=== PATIENT | female | born 2000 | race Caucasian/White ===

== ENCOUNTER 2023-03-24 12:52 | Emergency (ER) | payer OTHER, SELFPAY ==
[2023-03-24 12:58] VITALS: BP 181/92; PULSE 82; RESP 18; TEMP 36.8; O2SAT 99; BMI 48.2
--- NOTE | 2023-03-24 13:09 | CT_ITS ---
[address] [address] Patient Name: ELIUD NUNEZ MRN: [id number] date: 2000 Sex: F Assigned Patient Location: ER Current Patient Location: ER Accession/Order Number: [id number] Exam Date: 03/24/2023 13:50 Report Date: 03/24/2023 14:44 At the request of: CORKY NOLASCO Procedure: CT abdomen pelvis w con CT ABDOMEN AND PELVIS WITH CONTRAST: INDICATION: Left lower quadrant abdominal pain. COMPARISON: None. TECHNIQUE: Helical CT images of the abdomen and pelvis were obtained after the administration of intravenous contrast. Dose reduction techniques were achieved by using automated exposure control and/or adjustment of mA and/or kV according to patient size and/or use of iterative reconstruction technique. FINDINGS: LOWER CHEST: The visualized lung bases are clear. LIVER: There is hepatomegaly and severe diffuse hepatic steatosis. GALLBLADDER AND BILIARY SYSTEM: Unremarkable. SPLEEN: Unremarkable. PANCREAS: Unremarkable. ADRENAL GLANDS: Unremarkable. KIDNEYS AND URETERS: The kidneys enhance and excrete symmetrically without focal lesions or hydronephrosis. Evaluation for renal calculi is limited due to contrast in the renal collecting systems. BLADDER: Unremarkable. GASTROINTESTINAL TRACT: Mild wall thickening of the transverse and descending colon which may be secondary to underdistention or mild colitis. No evidence of bowel obstruction. Normal appendix. VASCULATURE: Unremarkable. RETROPERITONEUM AND LYMPH NODES: No lymphadenopathy or mass. PERITONEUM/MESENTERY: No abdominal ascites. No free air. PELVIS: There is an intrauterine device noted within the endometrial canal, an expected location. BODY WALL: Small fat-containing umbilical hernia. BONES: No acute abnormality. CT/CT abdomen pelvis w con IMPRESSION: 1. Mild wall thickening of the transverse and descending colon which may be secondary to underdistention or mild colitis. 2. Hepatomegaly and diffuse hepatic steatosis. 3. Small fat-containing umbilical hernia. Electronically authenticated by: KATHI MARTINO Date: 03/24/2023 14:44
--- NOTE | 2023-03-24 13:09 | PC.NURSE ---
LEFT LOWER ABDOMINAL PAIN. DENIES ANY OTHER SYMPTOMS. WORRIED ABOUT MIGRATING IUD THAT WAS PLACED IN NOVEMBER
--- NOTE | 2023-03-24 13:10 | ED_ITS ---
HPI - Abdominal Pain General Chief Complaint: Abdominal Pain Time Seen by Provider: 03/24/23 13:02 Source: patient Mode of arrival: walk-in Limitations: no limitations History of Present Illness HPI narrative: Pt is a 22-year-old female presents to the Emergency Room with concerns of left lower quadrant abdominal pain. Patient left work when symptoms started. Notes symptoms began around 10 AM, sharp aching the left lower quadrant somewhat colicky but never gone away. She denies any blood in her urine. She recently had an IUD placed. PCO as in November. She denies any fevers or chills. Nausea only present with increased pain. Patient denies any history of Crohn's, colitis or diverticulitis. She denies any abdominal trauma. She did take Pepcid prior to arrival without relief. Stools have been regular and unremarkable. this does not feel like my ovarian cyst with PCOS) Related Data Patient : No Home Medications Medication Instructions Recorded Confirmed hydrochlorothiazide 25 mg tablet 25 mg PO DAILY 03/24/23 03/24/23 Previous Rx's Medication Instructions Recorded ciprofloxacin HCl 500 mg tablet 500 mg PO BID 10 days #20 tabs 03/24/23 (Cipro) dicyclomine 20 mg tablet 20 mg PO TID PRN abdominal pain 03/24/23 #14 tabs metronidazole 500 mg tablet 500 mg PO Q8H 10 days #30 tabs 03/24/23 ondansetron HCl 4 mg tablet 4 mg PO Q6H PRN nausea and 03/24/23 vomiting #12 tabs Allergies Allergy/AdvReac Type Severity Reaction Status Date / Time No Known Drug Allergies Allergy Verified 03/24/23 12:58 Review of Systems ROS Constitutional Denies: fever or chills Ears, nose, mouth, and throat Denies: throat pain or neck pain Cardiovascular Denies: chest pain or palpitations Respiratory Denies: shortness of breath, cough or chest congestion Gastrointestinal Reports: abdominal pain and nausea; Denies: vomiting, coffee grounds in vomit or diarrhea Genitourinary Reports: urinary frequency (on HCTZ for BP); Denies: painful urination or urinary urgency Musculoskeletal Denies: back pain or neck pain Integumentary/Breast Denies: rash or itching Neurological Denies: headache Psychiatric Denies: anxiety Endocrine Denies: excessive urination PFSH PFSH Social History Smoking status: Never smoker Exam Narrative Exam Narrative: Nurses notes and vital signs reviewed and patient is not hypoxic. General: The patient appears well and in no apparent distress. Patient is resting comfortably on cart. Skin: Warm, dry, no pallor noted.no evidence of rash Head: Normocephalic, atraumatic Neck: Supple, trachea mid-line, no tenderness, no lymphadenopathy Eye: Pupils are equal, round and reactive to light, EOMI Ears, Nose, Mouth, and Throat: TM are clear, normal light reflex, oral mucosa is moist, no posterior oropharynx erythema or hypertrophy, uvula is mid-line Cardiovascular: Regular Rate and Rhythm Respiratory: Patient is in no distress, no accessory muscle use, lungs are clear to auscultation, no wheezing, rales or rhonchi. Chest Wall: no tenderness Back: non-tender, no CVA tenderness Musculoskeletal: normal ROM, no tenderness, no swelling GI: Normal bowel sounds,obese abdomen with tenderness to palpation LLQ, no rebound, slight guarding with repetitive patient., no masses appreciated. no rigidity noted, no suprapubic pain, minimal soreness at McBurney's point Neurological: A&O x4 Psychiatric: Cooperative Constitutional Vital Signs, click to edit/add: Last Vital Signs Temp 98.2 F 03/24/23 12:58 Pulse 82 03/24/23 12:58 Resp 18 03/24/23 12:58 BP 181/92 H 03/24/23 12:58 Pulse Ox 99 03/24/23 12:58 Course Vital Signs Vital signs: Vital Signs Temperature 98.2 F 03/24/23 12:58 Pulse Rate 82 03/24/23 12:58 Respiratory Rate 18 03/24/23 12:58 Blood Pressure 181/92 H 03/24/23 12:58 Pulse Oximetry 99 03/24/23 12:58 Temperature 98.2 F 03/24/23 12:58 Pulse Rate 82 03/24/23 12:58 Respiratory Rate 18 03/24/23 12:58 Blood Pressure 181/92 H 03/24/23 12:58 Pulse Oximetry 99 03/24/23 12:58 MDM - Abdominal Pain MDM Narrative Medical decision making narrative: acute onset left lower quadrant abdominal tenderness, given physiccal exam we recommend CT scan to rule out diverticulitis. The stone appears less likely she has no prior history. We discussed pain medications with Toradol and Zofran for nausea. We'll reassess. I expect her blood pressure did improve as patient is acutely anxious and nevver experiencing this pain before. patient reevaluated after returning from CT scanner at 2:20 PM. Patient notes her pain is much improved. Resting comfortably on her cell phone. Awaiting radiologist's interpretation and urinalysis. CT report reviewed, IUD in proper location, medical exam and concern for colitis in the transverse and descending colon noted on CT scan will treat with antibiotics with risks and benefits discussed, avoid alcohol The patient is to followup with primary care physician in next 2-3 days or to return to the emergency department should any of the signs or symptoms worsen or new symptoms develop. Patient had questions answered. The patient agrees with th eric following Diagnosis and Treatment plan and the patient will be discharged home. Lab Data Attestation: I reviewed the patient's lab results. Lab results narrative: urine culture with pending Labs: Lab Results 03/24/23 03/24/23 Range/Units 13:05 13:30 WBC 9.9 (4.0-11.0) 10^3/uL RBC 5.04 (4.20-5.40) 10^6/uL Hgb 12.8 (12.0-16.0) g/dL Hct 39.7 (36.0-48.0) % MCV 78.8 L (81.0-99.0) fL MCH 25.4 L (26.7-34.0) pg MCHC 32.2 (29.9-35.2) g/dL RDW 13.3 (11.0-15.0) % Plt Count 401 (150-450) 10^3/uL MPV 9.8 (9.5-13.5) fL Neut % (Auto) 68.4 (43.0-75.0) % Lymph % (Auto) 21.9 (20.5-60.0) % [place] % (Auto) 6.6 (1.7-12.0) % Eos % (Auto) 1.9 (0.9-7.0) % Baso % (Auto) 0.6 (0.2-2.0) % Neut # (Auto) 6.7 H (1.4-6.5) 10^3/uL Lymph # (Auto) 2.2 (1.2-3.8) 10^3/uL [place] # (Auto) 0.7 (0.3-0.8) 10^3/uL Eos # (Auto) 0.2 (0.0-0.7) 10^3/uL Baso # (Auto) 0.1 (0.0-0.1) 10^3/uL Abs Immat Gran (auto) 0.06 H (0.00-0.03) 10^3/uL Imm/Tot Granulo (auto) 0.6 H (0.0-0.5) % Sodium 139 (136-145) mmol/L Potassium 3.8 (3.5-5.1) mmol/L Chloride 104 (98-107) mmol/L Carbon Dioxide 25.9 (21.0-32.0) mmol/L Anion Gap 12.9 BUN 11.0 (7.0-18.0) mg/dL Creatinine 0.81 (0.55-1.02) mg/dL Est GFR ( Amer) >60 (>=60) Est GFR (Non-Af Amer) >60 (>=60) BUN/Creatinine Ratio 13.6 Glucose 94 (74-106) mg/dL Lactate 1.3 (0.4-2.0) mmol/L Calcium 9.0 (8.5-10.1) mg/dL Total Bilirubin 0.3 (0.2-1.0) mg/dL AST 27 (15-37) U/L ALT 60 H (14-59) U/L Alkaline Phosphatase 111 (46-116) U/L Total Protein 7.5 (6.4-8.2) g/dL Albumin 3.5 (3.4-5.0) g/dL Globulin 4.0 g/dL Albumin/Globulin Ratio 0.9 Lipase 82.0 (73.0-393.0) U/L Urine Color Yellow (YELLOW) Urine Clarity Clear (CLEAR) Urine pH 5.5 (5.0-9.0) Ur Specific [place] 1.015 (1.005-1.025) Urine Protein Negative (NEG/TRACE) mg/dL Urine Glucose (UA) Negative (NEGATIVE) mg/dL Urine Ketones Negative (NEGATIVE) mg/dL Urine Occult Blood Trace-i (NEGATIVE) Urine Nitrite Negative (NEGATIVE) Urine Bilirubin Negative (NEGATIVE) Urine Urobilinogen 0.2 (0.2-1.0) EU/dL Ur Leukocyte Esterase Negative (NEGATIVE) Urine RBC 2-5 A (0-2) #/HPF Urine WBC 2-5 A (NONE SEEN) #/HPF Ur Squamous Epith Cells Few A (NONE/RARE) #/LPF Urine Crystals None seen (None Seen) #/HPF Urine Bacteria Small A (NONE SEEN) #/HPF Urine Casts None seen (NONE SEEN) #/LPF Urine Mucus Trace A (NONE SEEN) Ur Culture Indicated? Yes Imaging Data CT scan - abdomen: Radiologist's impression: Procedure: CT abdomen pelvis w con CT ABDOMEN AND PELVIS WITH CONTRAST: INDICATION: Left lower quadrant abdominal pain. COMPARISON: None. TECHNIQUE: Helical CT images of the abdomen and pelvis were obtained after the administration of intravenous contrast. Dose reduction techniques were achieved by using automated exposure control and/or adjustment of mA and/or kV according to patient size and/or use of iterative reconstruction technique. FINDINGS: LOWER CHEST: The visualized lung bases are clear. LIVER: There is hepatomegaly and severe diffuse hepatic steatosis. GALLBLADDER AND BILIARY SYSTEM: Unremarkable. SPLEEN: Unremarkable. PANCREAS: Unremarkable. ADRENAL GLANDS: Unremarkable. KIDNEYS AND URETERS: The kidneys enhance and excrete symmetrically without focal lesions or hydronephrosis. Evaluation for renal calculi is limited due to contrast in the renal collecting systems. BLADDER: Unremarkable. GASTROINTESTINAL TRACT: Mild wall thickening of the transverse and descending colon which may be secondary to underdistention or mild colitis. No evidence of bowel obstruction. Normal appendix. VASCULATURE: Unremarkable. RETROPERITONEUM AND LYMPH NODES: No lymphadenopathy or mass. PERITONEUM/MESENTERY: No abdominal ascites. No free air. PELVIS: There is an intrauterine device noted within the endometrial canal, an expected location. BODY WALL: Small fat-containing umbilical hernia. BONES: No acute abnormality. IMPRESSION: 1. Mild wall thickening of the transverse and descending colon which may be secondary to underdistention or mild colitis. 2. Hepatomegaly and diffuse hepatic steatosis. 3. Small fat-containing umbilical hernia. Electronically authenticated by: KATHI MARTINO Date: 03/24/2023 14:44 Discharge Plan Discharge Chief Complaint: Abdominal Pain Clinical Impression: Colitis, Abdominal pain Patient Disposition: Home, Self-Care Time of Disposition Decision: 14:52 Condition: Good Mode of Transportation: Private Vehicle Prescriptions / Home Meds: New ondansetron HCl 4 mg tablet 4 mg PO Q6H PRN (Reason: nausea and vomiting) Qty: 12 0RF dicyclomine 20 mg tablet 20 mg PO TID PRN (Reason: abdominal pain) Qty: 14 0RF ciprofloxacin HCl [Cipro] 500 mg tablet 500 mg PO BID 10 Days Qty: 20 0RF metronidazole 500 mg tablet 500 mg PO Q8H 10 Days Qty: 30 0RF No Action hydrochlorothiazide 25 mg tablet 25 mg PO DAILY Instructions: Abdominal Pain (ED), Colitis (ED) Additional Instructions: May take motrin for pain as needed, No alcohol use with antibiotics. Follow up to pcp for recheck and return to ER if symptoms worsen. Stand Alone Forms: Portal Instructions Referrals: ANNA JIMENEZ [Primary Care Provider] - As soon as possible Discharge Date/Time: 03/24/23 15:01
[2023-03-24] MEDS: KETOROLAC TROMETHAMINE 30 MG/ML VIAL IVP (13:27)
[2023-03-24] MEDS: 0.9 % SODIUM CHLORIDE 1,000 ML 999 ML IV (13:27)
[2023-03-24] MEDS: ONDANSETRON PF 4 MG/2 ML VIAL IV (13:27)
[2023-03-24 13:55] LABS: Basophils Absolute Auto 0.1 10^3/uL (0.0-0.1); Basophils Percent Auto 0.6 % (0.2-2.0); Eosinophils Absolute Auto 0.2 10^3/uL (0.0-0.7); Eosinophils Percent Auto 1.9 % (0.9-7.0); Hematocrit 39.7 % (36.0-48.0); Hemoglobin 12.8 g/dL (12.0-16.0); Immature Granulocytes Abs Auto 0.06 10^3/uL (0.00-0.03); Immature Granulocytes Pct Auto 0.6 % (0.0-0.5); Lymphocytes Absolute Auto 2.2 10^3/uL (1.2-3.8); Lymphocytes Percent Auto 21.9 % (20.5-60.0); Mean Corpuscular HGB Conc 32.2 g/dL (29.9-35.2); Mean Corpuscular Hemoglobin 25.4 pg (26.7-34.0); Mean Corpuscular Volume 78.8 fL (81.0-99.0); Mean Platelet Volume 9.8 fL (9.5-13.5); Monocytes Absolute Auto 0.7 10^3/uL (0.3-0.8); Monocytes Percent Auto 6.6 % (1.7-12.0); Neutrophils Absolute Auto 6.7 10^3/uL (1.4-6.5); Neutrophils Percent Auto 68.4 % (43.0-75.0); Platelet Count 401 10^3/uL (150-450); Red Blood Count 5.04 10^6/uL (4.20-5.40); Red Cell Distribution Width 13.3 % (11.0-15.0); White Blood Count 9.9 10^3/uL (4.0-11.0)
[2023-03-24 14:09] LABS: Lactate/Lactic Acid 1.3 mmol/L (0.4-2.0)
[2023-03-24 14:16] LABS: Alanine Aminotransferase 60 U/L (14-59); Albumin Globulin Ratio 0.9; Albumin Level 3.5 g/dL (3.4-5.0); Alkaline Phosphatase 111 U/L (46-116); Anion Gap 12.9; Aspartate Amino Transferase 27 U/L (15-37); BUN Creatinine Ratio 13.6; Bilirubin Total 0.3 mg/dL (0.2-1.0); Carbon Dioxide 25.9 mmol/L (21.0-32.0); Chloride 104 mmol/L (98-107); Estimated GFR (African America >60 (>=60); Estimated GFR (Non-African Ame >60 (>=60); Glucose 94 mg/dL (74-106); Potassium 3.8 mmol/L (3.5-5.1); Sodium 139 mmol/L (136-145); Total Protein 7.5 g/dL (6.4-8.2)
[2023-03-24 14:27] LABS: Bilirubin Urine NEGATIVE (NEGATIVE); Blood Urine TRACE-I (NEGATIVE); Clarity Urine CLEAR (CLEAR); Color Urine YELLOW (YELLOW); Glucose Urine UA NEGATIVE (NEGATIVE); Ketones Urine NEGATIVE (NEGATIVE); Leukocyte Esterase Urine NEGATIVE (NEGATIVE); Nitrite Urine NEGATIVE (NEGATIVE); Protein Urine NEGATIVE (NEG/TRACE); Specific Gravity Urine 1.015 (1.005-1.025); Urobilinogen Urine 0.2 EU/dL (0.2-1.0); pH Urine 5.5 (5.0-9.0)
[2023-03-24 14:28] LABS: Urine Microscopic Indicated YES
[2023-03-24 14:44] LABS: Bacteria Urine SMALL #/HPF (NONE SEEN); Cast Seen? NONE SEEN #/LPF (NONE SEEN); Crystals Seen? None Seen #/HPF (None Seen); Mucus Urine TRACE (NONE SEEN); Squamous Epithelial Cell Urine FEW #/LPF (NONE/RARE); Urine Culture Indicated YES
[2023-03-24] MEDS: METRONIDAZOLE 250 MG TABLET 500 MG PO (14:57)
[2023-03-24] MEDS: CIPROFLOXACIN HCL 500 MG TABLET PO (14:57)
== END 2023-03-24 15:01 | disposition home or self-care (01) ==
PROVIDERS: Personal Emergency Response Attendant; Emergency Provider Emergency Medicine
DX: K52.9 Noninfective gastroenteritis and colitis, unspecified (principal); R10.9 Unspecified abdominal pain; Z97.5 Presence of (intrauterine) contraceptive device; Z79.899 Other long term (current) drug therapy
CPT/HCPCS: 36415; 74177; 80053; 81001; 83605; 83690; 85025; 87086; 96361; 96374; 96375; 99285; Q9967

== ENCOUNTER 2023-04-20 08:49 | Emergency (ER) | payer OTHER, SELFPAY ==
[2023-04-20 08:54] VITALS: RESP 18; BMI 49.5
[2023-04-20 08:56] VITALS: BP 157/97; PULSE 84; RESP 18; TEMP 36.3; O2SAT 98
--- NOTE | 2023-04-20 09:24 | XR_ITS ---
The [address] [address] Patient Name: ELIUD NUNEZ MRN: [id number] date: 2000 Sex: F Assigned Patient Location: ER Current Patient Location: ER Accession/Order Number: [id number] Exam Date: 04/20/2023 09:30 Report Date: 04/20/2023 09:54 At the request of: LANDON GREEN Procedure: XR lumbar spine 2-3V EXAM: XR lumbar spine 2-3V HISTORY: low back pain COMPARISON: CT of the abdomen films from 03/24/2023 TECHNIQUE: 2 views lumbar spine. FINDINGS: Bones: No radiographic evidence of fracture. Normal vertebral body heights. No aggressive appearing lesion. Alignment: No pathologic listhesis or scoliotic curvature. Degenerative findings: No radiographic evidence of degenerative findings. Additional findings: None. XR/XR lumbar spine 2-3V IMPRESSION: No acute bony abnormality. Unremarkable examination. Electronically authenticated by: MORIS SOARES Date: 04/20/2023 09:54
--- NOTE | 2023-04-20 09:25 | ED.GENADUL1 ---
HPI - General Adult General Chief complaint: Extremity Injury, Lower Stated complaint: BACK PAIN, FLANK PAIN LEFT SIDE Time Seen by Provider: 04/20/23 09:07 Source: patient Mode of arrival: walk-in Limitations: no limitations History of Present Illness HPI narrative: patient's here for evaluation of low back pain. It tends to be in the left lower paralumbar area and radiates to the left lateral hip area. She has ongoing problems with her back and goes to a chiropractor approximately once per month. She's not had any new trauma, injury or change in activity. She is not had fever shakes or chills. She has no symptoms of cauda equina syndrome. No bowel or bladder incontinence. She was sitting at a movie theater last night when the pain started. Related Data Home Medications Medication Instructions Recorded Confirmed hydrochlorothiazide 25 mg tablet 25 mg PO DAILY 03/24/23 03/24/23 Previous Rx's Medication Instructions Recorded ciprofloxacin HCl 500 mg tablet 500 mg PO BID 10 days #20 tabs 03/24/23 (Cipro) dicyclomine 20 mg tablet 20 mg PO TID PRN abdominal pain 03/24/23 #14 tabs metronidazole 500 mg tablet 500 mg PO Q8H 10 days #30 tabs 03/24/23 ondansetron HCl 4 mg tablet 4 mg PO Q6H PRN nausea and 03/24/23 vomiting #12 tabs Allergies Allergy/AdvReac Type Severity Reaction Status Date / Time No Known Drug Allergies Allergy Verified 03/24/23 12:58 PFSH PFSH Social History Smoking status: Never smoker Exam Narrative Exam Narrative: patient awake alert vital signs are noted. She moves about slowly but is not in extremis. The sitting position she was examined. Her deep tendon reflexes are two over four patellar one over four and Achilles and her extensor hallucis longus function is normal. Straight leg raising test is negative but she does have some paralumbar discomfort on the left side with that maneuver. On inspection of the back there is no gross kyphoscoliosis. There is no evidence of shingles or other skin lesions. Pain is in the paralumbar area. Neurovascular examination lower extremity is normal. He has not had baseline x-rays previously. Constitutional Vital Signs, click to edit/add: Last Vital Signs Temp 97.4 F L 04/20/23 08:56 Pulse 84 04/20/23 08:56 Resp 18 04/20/23 08:56 BP 157/97 H 04/20/23 08:56 Pulse Ox 98 04/20/23 08:56 Course Vital Signs Vital signs: Vital Signs Respiratory Rate 18 04/20/23 08:54 Temperature 97.4 F L 04/20/23 08:56 Pulse Rate 84 04/20/23 08:56 Respiratory Rate 18 04/20/23 08:56 Blood Pressure 157/97 H 04/20/23 08:56 Pulse Oximetry 98 04/20/23 08:56 Medical Decision Making MDM Narrative Medical decision making narrative: x-rays reviewed no acute findings and she does not have any evidence of severe degenerative joint disease in the spine. This appears to be a simple lumbar lumbar strain. Treatment recommendations were discussed Discharge Plan Discharge Chief Complaint: Extremity Injury, Lower Clinical Impression: Acute lumbar myofascial strain Patient Disposition: Home, Self-Care Time of Disposition Decision: 09:57 Prescriptions / Home Meds: No Action hydrochlorothiazide 25 mg tablet 25 mg PO DAILY ondansetron HCl 4 mg tablet 4 mg PO Q6H PRN (Reason: nausea and vomiting) Qty: 12 0RF dicyclomine 20 mg tablet 20 mg PO TID PRN (Reason: abdominal pain) Qty: 14 0RF ciprofloxacin HCl [Cipro] 500 mg tablet 500 mg PO BID 10 Days Qty: 20 0RF metronidazole 500 mg tablet 500 mg PO Q8H 10 Days Qty: 30 0RF Additional Instructions: Anaprox/Robaxin//alternate ice with heat/follow-up with here therapist Stand Alone Forms: Portal Instructions Referrals: ANNA JIMENEZ [Primary Care Provider] - 1 week
[2023-04-20 10:08] VITALS: BP 123/68; PULSE 68; RESP 18; O2SAT 98
== END 2023-04-20 10:10 | disposition home or self-care (01) ==
PROVIDERS: Emergency Provider Emergency Medicine Emergency Medical Services
DX: S39.012A Strain of muscle, fascia and tendon of lower back, initial encounter (principal); X58.XXXA Exposure to other specified factors, initial encounter; Z79.899 Other long term (current) drug therapy
CPT/HCPCS: 72100; 99283

== ENCOUNTER 2023-11-21 10:53 | Emergency (ER) | payer OTHER, SELFPAY ==
[2023-11-21 10:58] VITALS: BP 175/98; PULSE 104; TEMP 36.8; O2SAT 97; BMI 46.4
--- NOTE | 2023-11-21 11:09 | ED.ABDPAIN1 ---
HPI - Abdominal Pain General Chief Complaint: Abdominal Pain Stated Complaint: BLOOD IN STOOL Time Seen by Provider: 11/21/23 11:00 Source: patient Mode of arrival: walk-in Limitations: no limitations History of Present Illness HPI narrative: This patient is here today for passing what appears to be blood in her bowel movement today. Actually started several days ago when her bowel movement color went from normal to what she calls tarry. Today then she passed tarry stool and then she also had bright red blood in the toilet bowl. Back in March this year she came to this hospital and had similar problems. She was told that she had borderline anemia. That was in March and she did not get a colonoscopy until August done by a surgeon in [facility]. She says that the report was completely normal, there is no inflammation there is no polyps there was no cancer or anything abnormal on the colonoscopy. She never had upper endoscopy. She does not use NSAIDs. No heavy alcohol use. She had some cramping type discomfort today. Related Data Home Medications ?Medication ?Instructions ?Recorded ?Confirmed No Known Home Medications 11/21/23 11/21/23 Allergies Allergy/AdvReac Type Severity Reaction Status Date / Time No Known Drug Allergies Allergy Verified 03/24/23 12:58 [facility] Social History Smoking status: Never smoker Exam Narrative Exam Narrative: Awake and alert Vitals: Lungs are noticed rest. She moves about comfortably. HEENT shows no evidence of scleral icterus jaundice or anemia. Abdomen she has no pain with aggressive palpation in all quadrants of the abdomen certainly no peritoneal findings or guarding. Her joints do not seem to have any pain discomfort or symptomatic arthralgia at this time. Cognition and mentation are normal she is very pleasant. Constitutional Vital Signs, click to edit/add: Last Vital Signs Temp 98.3 F 11/21/23 10:58 Pulse 104 H 11/21/23 10:58 Resp 18 11/21/23 10:58 BP 175/98 H 11/21/23 10:58 Pulse Ox 97 11/21/23 10:58 O2 Del Method Room Air 11/21/23 10:58 Course Vital Signs Vital signs: Vital Signs Temperature 98.3 F 11/21/23 10:58 Pulse Rate 104 H 11/21/23 10:58 Respiratory Rate 18 11/21/23 10:58 Blood Pressure 175/98 H 11/21/23 10:58 Pulse Oximetry 97 11/21/23 10:58 Oxygen Delivery Method Room Air 11/21/23 10:58 Temperature 98.3 F 11/21/23 10:58 Pulse Rate 104 H 11/21/23 10:58 Respiratory Rate 18 11/21/23 10:58 Blood Pressure 175/98 H 11/21/23 10:58 Pulse Oximetry 97 11/21/23 10:58 Oxygen Delivery Method Room Air 11/21/23 10:58 MDM - Abdominal Pain MDM Narrative Medical decision making narrative: I have reviewed her previous ER visit here and the imaging report from CT suggestion of mild colon inflammation. Subsequent colonoscopy was normal. Now she has a elevated sedimentation rate and is having some blood per rectum. I spoke to her primary care doctor and they are going to facilitate referral to gastroenterology as appropriate. She does not have emergency condition at this time but I will hold off on use of any steroids pending their nuchal come Lab Data Labs: Lab Results 11/21/23 Range/Units 11:25 WBC 9.6 (4.0-11.0) 10^3/uL RBC 4.87 (4.20-5.40) 10^6/uL Hgb 13.0 (12.0-16.0) g/dL Hct 39.2 (36.0-48.0) % MCV 80.5 L (81.0-99.0) fL MCH 26.7 (26.7-34.0) pg MCHC 33.2 (29.9-35.2) g/dL RDW 13.4 (11.0-15.0) % Plt Count 389 (150-450) 10^3/uL MPV 9.3 L (9.5-13.5) fL Neut % (Auto) 69.8 (43.0-75.0) % Lymph % (Auto) 22.7 (20.5-60.0) % [place] % (Auto) 4.7 (1.7-12.0) % Eos % (Auto) 1.8 (0.9-7.0) % Baso % (Auto) 0.6 (0.2-2.0) % Neut # (Auto) 6.7 H (1.4-6.5) 10^3/uL Lymph # (Auto) 2.2 (1.2-3.8) 10^3/uL [place] # (Auto) 0.5 (0.3-0.8) 10^3/uL Eos # (Auto) 0.2 (0.0-0.7) 10^3/uL Baso # (Auto) 0.1 (0.0-0.1) 10^3/uL Abs Immat Gran (auto) 0.04 H (0.00-0.03) 10^3/uL Imm/Tot Granulo (auto) 0.4 (0.0-0.5) % ESR 46 H (<=20) mm/hr Sodium 138 (136-145) mmol/L Potassium 3.9 (3.5-5.1) mmol/L Chloride 101 (98-107) mmol/L Carbon Dioxide 28.2 (21.0-32.0) mmol/L Anion Gap 12.7 BUN 8.0 (7.0-18.0) mg/dL Creatinine 0.80 (0.55-1.02) mg/dL Est GFR ( Amer) >60 (>=60) Est GFR (Non-Af Amer) >60 (>=60) BUN/Creatinine Ratio 10.0 Glucose 123 H (74-106) mg/dL Calcium 9.6 (8.5-10.1) mg/dL Discharge Plan Discharge Stand Alone Forms: Portal Instructions Chief Complaint: Abdominal Pain Clinical Impression: GI (gastrointestinal bleed) Patient Disposition: Home, Self-Care Time of Disposition Decision: 12:19 Prescriptions / Home Meds: No Action No Known Home Medications Print Language: Albanian Additional Instructions: Follow-up with your primary care doctor who will arrange for the referral and evaluation. Return for any worsening of condition/clear fluid diet for the next 24 hours Referrals: ANNA JIMENEZ [Primary Care Provider] - 1 week
[2023-11-21 11:31] LABS: Basophils Absolute Auto 0.1 10^3/uL (0.0-0.1); Basophils Percent Auto 0.6 % (0.2-2.0); Eosinophils Absolute Auto 0.2 10^3/uL (0.0-0.7); Eosinophils Percent Auto 1.8 % (0.9-7.0); Hematocrit 39.2 % (36.0-48.0); Immature Granulocytes Abs Auto 0.04 10^3/uL (0.00-0.03); Immature Granulocytes Pct Auto 0.4 % (0.0-0.5); Lymphocytes Absolute Auto 2.2 10^3/uL (1.2-3.8); Lymphocytes Percent Auto 22.7 % (20.5-60.0); Mean Corpuscular HGB Conc 33.2 g/dL (29.9-35.2); Mean Corpuscular Hemoglobin 26.7 pg (26.7-34.0); Mean Corpuscular Volume 80.5 fL (81.0-99.0); Mean Platelet Volume 9.3 fL (9.5-13.5); Monocytes Absolute Auto 0.5 10^3/uL (0.3-0.8); Monocytes Percent Auto 4.7 % (1.7-12.0); Neutrophils Absolute Auto 6.7 10^3/uL (1.4-6.5); Neutrophils Percent Auto 69.8 % (43.0-75.0); Platelet Count 389 10^3/uL (150-450); Red Blood Count 4.87 10^6/uL (4.20-5.40); Red Cell Distribution Width 13.4 % (11.0-15.0); White Blood Count 9.6 10^3/uL (4.0-11.0)
[2023-11-21 11:50] LABS: Erythrocyte Sedimentation Rate 46 mm/hr (<=20)
[2023-11-21 11:54] LABS: Anion Gap 12.7; Calcium 9.6 mg/dL (8.5-10.1); Carbon Dioxide 28.2 mmol/L (21.0-32.0); Chloride 101 mmol/L (98-107); Estimated GFR (African America >60 (>=60); Estimated GFR (Non-African Ame >60 (>=60); Glucose 123 mg/dL (74-106); Potassium 3.9 mmol/L (3.5-5.1); Sodium 138 mmol/L (136-145)
== END 2023-11-21 12:26 | disposition home or self-care (01) ==
PROVIDERS: Emergency Provider Emergency Medicine Emergency Medical Services
DX: K92.2 Gastrointestinal hemorrhage, unspecified (principal)
CPT/HCPCS: 36415; 80048; 85025; 85652; 99283

== ENCOUNTER 2025-01-23 03:40 | Emergency (ER) | payer OTHER, SELFPAY ==
[2025-01-23 03:45] VITALS: BP 154/86; PULSE 92; TEMP 36.9; O2SAT 100; BMI 42.8
--- OUTSIDE RECORDS SUMMARY | 2025-01-23 03:54 | XMS_ITS | CCD ---
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 Name Role Phone RICARDOMEHDI JUAREZ Unavailable Unavailable PROVIDER, UNKNOWN Unavailable Unavailable No, PCP Unavailable Unavailable German Flores Unavailable Chidi, JEAN Padilla Primary Care Provider [phone] MD Kobe Alcantara Attending Provider Chidi, RENOVATOR MACHINE OPERATOR Deidre A Primary Care Provider [phone] MD Lalo Imskyler Attending Provider Chidi RENOVATOR MACHINE OPERATOR-Deidre DOMINGUEZ Primary Care Provider [phone] NEEMA ORTIZ Attending Unavailable CHIDI, DEIDRE Referring Unavailable CHIDI, DEIDRE Primary Care Unavailable ENEMA ORTIZ Attending Unavailable NEEMA ROTIZ Referring Unavailable NEEMA ORTIZ Primary Care Unavailable NEEMA ORTIZ Referring Unavailable CHIDI, DEIDRE Primary Care Unavailable Chidi RENOVATOR MACHINE OPERATORDeidre Pollack A Primary Care Provider [phone] Nandini Arroyo MD Emergency Provider Jair Rosenberg MD Admit Provider Jair Rosenberg MD Attending Provider [phone] Chidi RENOVATOR MACHINE OPERATORDeidre Pollack Primary Care Provider [phone] Nandini Arroyo MD Emergency Provider Jair Rosenberg MD Admit Provider Jair Rosenberg MD Attending Provider Eliza Johnson APRN Attending Provider [phone] Chidi FLYER REPAIRER-C, Deidre A Primary Care Unavailable Chidi FLYER REPAIRER-C, Deidre A Attending Unavailable Chidi FLYER REPAIRER-C, Deidre A Primary Care Unavailable Chidi FLYER REPAIRER-C, Deidre A Attending Unavailable Chidi FLYER REPAIRER-C, Deidre A Primary Care Unavailable Asaad, Imad Admitting Unavailable Asaad, Imad Attending Unavailable Chidi, Deidre A Primary Care Unavailable Eliza Johnson Admitting Unavailable Eliza Johnson Attending Unavailable Chet, Jair Admitting Unavailab le Chet, Jair Attending Unavailab le Chet Jair Admitting Unavailab le Chet Jair Attending Unavailab le Chidi, Deidre A Primary Care Unavailable Medications Current Medications Medication Drug Class(es) Dates Sig (Normalized) Sig (Original) 0.25 MG, 0.5 MG Dose 3 ML semaglutide 0.68 MG/ML Pen Injector [Ozempic] (1 source) Start: 03-01-2023 inject 0.25 mg by subcutaneous injection every week, then inject 0.5 mg by subcutaneous injection every week Ozempic (0.25 or 0.5 MG/DOSE) 2 MG/3ML 0.25 mg subcutaneously once weekly Subcutaneous Once weekly for 28 days Feb, Active 0.5 ML semaglutide 0.5 MG/ML Auto-Injector [Wegovy] (1 source) Start: 02-21-2023 inject 0.25 mg by subcutaneous injection every week Wegovy 0.25 MG/0.5ML 0.25 mg Subcutaneous Once weekly for 30 Feb, Active ARIPiprazole 2 mg oral tablet (4 sources) Atypical Antipsychotic Start: 09-06-2024 take 1 tablet by mouth once daily at bedtime Aripiprazole 2 mg Tablet Active 2 MG PO Daily at bedtime September 06, 2024 1:00am Start: 10-24-2022 ARIPiprazole ( ABILIFY) 5 mg tablet 1 tablet (5 mg total). 10/24/2022 Active busPIRone hydrochloride 10 mg oral tablet (1 source) Start: 10-24-2022 busPIRone (BUSPAR) 10 mg tablet BID, 0 Refill(s) 10/24/2022 Active ergocalciferol 1.25 mg oral capsule (3 sources) Provitamin D2 Compound Start: 09-06-2024 Ergocalciferol (Vitamin D2) 1,250 mcg (50,000 unit) Capsule Active 1250 MCG PO Gutiérrez@0900 5 September 06, 2024 1:00am hydroCHLOROthiazide 25 mg oral tablet (2 sources) Thiazide Diuretic take 1 tablet by mouth every twenty-fou r hours hydroCHLOROthiazide 25 MG 1 Tablet Orally Once a day for 30 days Active lamoTRIgine 25 mg oral tablet (4 sources) Mood Stabilizer, Anti-epileptic Agent Start: 09-06-2024 take 1 tablet by mouth once daily Lamotrigine 25 mg Tablet Active 25 MG PO Daily 15 September 06, 2024 1:00am Start: 10-24-2022 lamoTRIgine (L aMICtal) 100 mg tablet Daily, 0 Refill(s) 10/24/2022 Active levonorgestrel 0.638144 mg/hr intrauterine system (3 sources) Progestin, Progestin-containing Intrauterine Device levonorgestreL (LETICIA NA) 21 mcg/24hr (up to 8 yrs) 52 mg IUD 1 each by intrauterine route once. Active Mirena Active penicillin v potassium 500 mg oral tablet (2 sources) Start: 09-23-2024 take 1 tablet by mouth twice daily Penicillin V Potassium 500 mg tablet Active 500 MG PO Twice daily 26 04September 23, 2024 12:00am sertraline 25 mg oral tablet (1 source) Serotonin Reuptake Inhibitor Start: 10-24-2022 sertraline (ZOLOFT) 25 mg tablet 1 tablet (25 mg total). 10/24/2022 Active Completed/Discontinued Medications Medication Drug Class(es) Dates Sig (Normalized) Sig (Original) Ethinyl Estradiol / norgestimate (1 source) Progestin, Estrogen End: 07-23-2024 take 1 tablet by mouth once daily norgestimate-ethiny l estradiol (ORTHO-CYCLEN) 0.25-35 mg-mcg per tablet Take 1 tablet by mouth daily. 07/23/2024 Discontinued (Alternate therapy) FLUoxetine 20 mg oral capsule (1 source) Serotonin Reuptake Inhibitor End: 07-23-2024 take 1 capsule by mouth once daily FLUoxetine (PROzac) 20 mg capsule Take 20 mg by mouth daily. 07/23/2024 Discontinued (Alternate therapy) Problems Active Problems Problem Classification Problem Date Documented Da te Episodic/Chronic Administrative/social admission (2 sources) Dietary counseling and surveillance; Translations: [Other specified counseling] Episodic Allergic reactions (1 source) Atopic dermatitis; Translations: [Atopic dermatitis, unspecified] Onset: 07-23-2024 07-23-2024 Chronic Allergic reactions (2 sources) Eczema; Translations: [Dermatitis, unspecified] 09-23-2024 Episodic Anxiety disorders (4 sources) Anxiety; Translations: [Anxiety disorder, unspecified] Onset: 07-23-2024 07-23-2024 Chronic Contraceptive and procreative management (3 sources) Intrauterine contraceptive device in situ; Translations: [Encounter for routine checking of intrauterine contraceptive device] Onset: 07-23-2024 07-23-2024 Episodic Disorders of lipid metabolism (5 sources) Dyslipidemia; Translations: [Hyperlipidemia, unspecified] Chronic Essential hypertension (11 sources) Essential hypertension; Translations: [Essential (primary) hypertension] Chronic Mood disorders (13 sources) Depressive disorder; Translations: [Depression] Onset: 09-03-2024 09-03-2024 Chronic Mood disorders (2 sources) Mood disorders; Translations: [Depression, unspecified] Onset: 09-03-2024 07-23-2024 Other circulatory disease (1 source) Elevated blood-pressure reading without diagnosis of hypertension; Translations: [Elevated blood-pressure reading, without diagnosis of hypertension] Onset: 07-23-2024 07-23-2024 Episodic Other endocrine disorders (2 sources) Polycystic ovaries; Translations: [Polycystic ovarian syndrome] Chronic Other endocrine disorders (1 source) Polycystic ovarian syndrome Chronic Other endocrine disorders (2 sources) Polycystic ovary syndrome; Translations: [Polycystic ovarian syndrome] 09-23-2024 Chronic Other female genital disorders (1 source) History of gynecological disorder; Translations: [Personal history of other diseases of the female genital tract] 07-23-2024 Episodic Other female genital disorders (1 source) History of abnormal cervical Papanicolaou smear ; Translations: [Personal history of other diseases of the female genital tract] 07-23-2024 Episodic Other female genital disorders (2 sources) Personal history of other diseases of the female genital tract; Translations: [Personal history of other diseases of the female genital tract] Onset: 07-23-2024 Episodic Other gastrointestinal disorders (6 sources) Diarrhea; Translations: [Diarrhea, unspecified] 03-02-2024 Episodic Other gastrointestinal disorders (1 source) Disorder of colon; Translations: [Disease of intestine, unspecified] Onset: 07-23-2024 07-23-2024 Episodic Other lower respiratory disease (1 source) Snoring Episodic Other nutritional; endocrine; and metabolic disorders (2 sources) Morbid obesity; Translations: [Morbid (severe) obesity due to excess calories] Chronic Other nutritional; endocrine; and metabolic disorders (1 source) Morbid (severe) obesity due to excess calories Chronic Other skin disorders (1 source) Acne; Translations: [Acne, unspecified] Onset: 07-23-2024 07-23-2024 Episodic Other upper respiratory infections (4 sources) Acute pharyngitis, unspecified; Translations: [Acute pharyngitis] Onset: 09-23-2024 09-23-2024 Episodic Ovarian cyst (1 source) Cyst of ovary; Translations: [Unspecified ovarian cyst, unspecified side] Onset: 07-23-2024 07-23-2024 Episodic Screening and history of mental health and substance abuse codes (2 sources) Standardized adult depression screening tool completed ; Translations: [Encounter for screening for depression] Onset: 07-23-2024 07-23-2024 Episodic Unclassified (1 source) Gynecologic Exam Onset: 07-23-2024 Past or Other Problems Problem Classification Problem Date Documented Da te Episodic/Chronic Abdominal pain (7 sources) Abdominal pain; Translations: [Unspecified abdominal pain] Onset: 03-18-2024 03-02-2024 Episodic Gastrointestinal hemorrhage (7 sources) Rectal hemorrhage; Translations: [Hemorrhage of anus and rectum] Onset: 03-18-2024 03-02-2024 Episodic Other gastrointestinal disorders (1 source) Diarrhea, unspecified; Translations: [Diarrhea, unspecified] Onset: 03-18-2024 Episodic Other lower respiratory disease (2 sources) Shortness of breath; Translations: [Shortness of breath] Onset: 07-30-2017 Episodic Suicide and intentional self-inflicted injury (7 sources) Suicidal thoughts; Translations: [Suicidal ideations] Onset: 09-03-2024 09-03-2024 Episodic Results Test Name Value Interpretation Reference Range Facility Outside Recordson 09-25-2024 Outside Records [id number] Panel InformationOrdered By: Eliza Johnson on 09-23-2024 Quick Strep (POC) [facility] Strep A Culture Onlyon 09-23 Strep A Culture Only Strep A Only Cult No Group A Beta Streptococcus Isolated 2 Days PERFORMED BY: [place] [address] PATHOLOGIST [employer]AT[employer] LEAD GINA STEPHENSON M.D. Normal [facility] Comment on above: Performed By: #### C USTA #### [address] Outside Recordson 09-07-2024 Outside Records [id number]. [facility] Cholesterol [Mass/volume] in Serum or PlasmaOrdered By: Jair Rosenberg on 09-04-2024 Cholesterol [Mass/Vol] Cholesterol [Mass/volume] in Serum or Plasma 140-200 [facility] Comment on above: Chol less than 200 m g/dl low riskChol 201-239 mg/dl borderline riskChol 240 mg/dl and greater high risk Cholesterol in HDL [Mass/vol ume] in Serum or PlasmaOrdered By: Jair Rosenberg on 09-04-2024 Cholesterol in HDL [Mass/Vol] Serum or plasma high density lipoprotein (HDL) cholesterol measurement 23-92 [facility] Comment on above: HDL CHOL ATP-III CLA SSIFICATION Cardiovascular RiskHDL > or equal to 60 mg/dL LOWHDL < 40 mg/dL HIGH Cholesterol in LDL Calc [Mas s/Vol]Ordered By: Jair Rosenberg on 09-04-2024 Cholesterol in LDL [Mass/Vol] Cholesterol in LDL [Mass/volume] in Serum or Plasma by calculation 0-100 [facility] Comment on above: LDL ATP III CLASSIFI CATIONLDL less than 100 mg/dL OptimalLDL 100-129 mg/dL Near or above optimalLDL 130-159 mg/dL Borderline highLDL 160-189 mg/dL HighLDL greater than 189 mg/dL Very high Cholesterol in VLDL Calc [Ma ss/Vol]Ordered By: Jair Rosenberg on 09-04-2024 Cholesterol in VLDL [Mass/Vol] Cholesterol in VLDL [Mass/volume] in Serum or Plasma by calculation [facility] ECG 12 lead ECGon 09-04-2024 ECG 12 lead ECG [facility] [address] [place] [address] Electrocardiograph Report Signed Patient: Mone Arriaza MR#: [id number] : 2000 Acct:[id number] Age/Sex: 24 / F ADM Date: 09/03/24 Loc: Room: [address] [place] [address] Type: ADM IN Attending Dr: Jair Rosenberg MD Ordering Provider: Jair Rosenberg MD Date of Service: 09/04/24 ECG/ECG 12 lead ECG: New Admit Copies to: Test Reason : Blood Pressure : */* mmHG Vent. Rate : 56 BPM Atrial Rate : 56 BPM P-R Int : 142 ms QRS Dur : 86 ms QT Int : 420 ms P-R-T Axes : 40 12 32 degrees QTcB Int : 405 ms Sinus bradycardia with sinus arrhythmia Otherwise normal ECG No previous ECGs available Confirmed by Miguelangel Fierro ([id number]) on 09/04/2024 4:41:41 PM Referred By: Electronically Signed By: Miguelangel Fierro Transcribed By: MUS Signed By Miguelangel Fierro MD 09/04/24 1641 Normal [facility] Lipid Panelon 09-04-2024 Cholesterol [Mass/Vol] 153 mg/dL Normal 140-200 [facility] Comment on above: Result Comment: Chol less than 200 mg/dl low risk Chol 201-239 mg/dl borderline risk Chol 240 mg/dl and greater high risk Performed By: #### V [id number], TSH3 wRFLX, LIPID #### [facility] [address] Cholesterol in HDL [Mass/Vol] 39 mg/dL Normal 23-92 [facility] Comment on above: Result Comment: HDL CHOL ATP-III CLASSIFICATION Cardiovascular Risk HDL > or equal to 60 mg/dL LOW HDL < 40 mg/dL HIGH Performed By: #### V [id number], TSH3 wRFLX, LIPID #### [facility] [address] Cholesterol.total/Choles terol in HDL [Mass ratio] 3.9 {ratio} Normal <5.0 [facility] Comment on above: Performed By: #### V [id number], TSH3 wRFLX, LIPID #### [facility] [address] LDL Cholesterol,Calculated 91 mg/dL Normal 0-100 [facility] Comment on above: Result Comment: LDL ATP III CLASSIFICATION LDL less than 100 mg/dL Optimal LDL 100-129 mg/dL Near or above optimal LDL 130-159 mg/dL Borderline high LDL 160-189 mg/dL High LDL greater than 189 mg/dL Very high Performed By: #### V [id number], TSH3 wRFLX, LIPID #### [facility] [address] Triglyceride w/Reflex 113 mg/dL Normal 0-149 [facility] Comment on above: Result Comment: TRIG ATP III CLASSIFICATION TRIG less than 150 mg/dL Normal TRIG 150-199 mg/dL Borderline high TRIG 200-500 mg/dL High TRIG greater than 500 mg/dL Very high Standard traceable to the Center for Disease Conrtrol and Prevention (CDC) test method. Performed By: #### V [id number], TSH3 wRFLX, LIPID #### [facility] [address] [place] [phone] [facility] VLDL CHOLESTEROL 22 mg/dL Normal [facility] Comment on above: Performed By: #### V [id number], TSH3 wRFLX, LIPID #### [facility] [address] [place] [phone] [facility] Serum or plasma total choles terol/high density lipoprotein (HDL) cholesterol mass ratOrdered By: Jair Rosenberg on 09-04-2024 Cholesterol.total/Choles terol in HDL [Mass ratio] Serum or plasma total cholesterol/high density lipoprotein (HDL) cholesterol mass rat <5.0 [facility] Thyroid Stim Hormone w/Rflxo n 09-04-2024 Thyroid Stim Hormone w/Rflx 0.83 u[iU]/mL Normal 0.45-5.33 [facility] Comment on above: Performed By: #### U HCG, ADDONUAPLUS, URDS #### [facility] [address] Thyrotropin [Units/volume] i n Serum or PlasmaOrdered By: Jair Rosenberg on 09-04-2024 TSH Qn Thyrotropin [Units/volume] in Serum or Plasma 0.45-5.33 [facility] Triglyceride [Mass/volume] i n Serum or PlasmaOrdered By: Jair Rosenberg on 09-04-2024 Triglyceride [Mass/Vol] Triglyceride [Mass/volume] in Serum or Plasma 0-149 [facility] Comment on above: TRIG ATP III CLASSIF ICATIONTRIG less than 150 mg/dL NormalTRIG 150-199 mg/dL Borderline highTRIG 200-500 mg/dL High TRIG greater than 500 mg/dL Very highStandard traceable to the Center for Disease Conrtrol and Prevention (CDC) test method. Vitamin D 25 Hydroxy Totalon 09-04-2024 Vitamin D 25 Hydroxy Total <7.0 Low 30-100 [facility] Comment on above: Result Comment: LEIGH MIN D STATUS 25(OH)VITAMIN D RANGE (ng/mL) Deficient <20 Insufficient 20 to <30 Sufficient 30 to 100 Reference: Jolene MF,Ella NC, Laura MORALES, et al. Evaluation,treatment, and prevention of vitamin D deficiency; an Endocrine Society clinical practice guideline. JCEM. 2010; 96(7):1911-30. PERFORMED BY: [facility] [address] [place] [address] PATHOLOGIST [employer] LEAD GINA STEPHENSON M.D. Performed By: #### U HCG, ADDONUAPLUS, URDS #### [facility] [address] Vitamin D+Metabolites [Mass/ volume] in Serum or PlasmaOrdered By: Jair Rosenberg on 09-04-2024 Vitamin D+Metabolites [Mass/Vol] Vitamin D+Metabolites [Mass/volume] in Serum or Plasma Low 30-100 [facility] Comment on above: VITAMIN D STATUS 25( OH)VITAMIN D RANGE (ng/mL) Deficient <20 Insufficient 20 to <30Sufficient 30 to 100Reference: Jolene MF,Ella NC, Laura MORALES, et al. Evaluation,treatment, and prevention of vitamin D deficiency; an Endocrine Society clinical practice guideline. JCEM. 2010; 96(7):1911-30. Alanine aminotransferase [En zymatic activity/volume] in Serum or PlasmaOrdered By: Nandini Arroyo on 09-03-2024 ALT [Catalytic activity/Vol] Alanine aminotransferase [Enzymatic activity/volume] in Serum or Plasma 7-52 [facility] Albumin [Mass/volume] in Ser um or Plasma by Bromocresol green (BCG) dye binding methoOrdered By: Nandini Arroyo on 09-03-2024 Albumin BCG dye [Mass/Vol] Albumin [Mass/volume] in Serum or Plasma by Bromocresol green (BCG) dye binding metho 3.5-5.7 [facility] Alkaline phosphatase [Enzyma tic activity/volume] in Serum or PlasmaOrdered By: Nandini Arroyo on 09-03-2024 ALP [Catalytic activity/Vol] Alkaline phosphatase [Enzymatic activity/volume] in Serum or Plasma 34-104 [facility] Amphetamine Screen Ql (U)Ord ered By: Nandini Arroyo on 09-03-2024 Amphetamines Ql (U) Amphetamines screen Negativ e [facility] Appearance of UrineOrdered B y: Nandini Arroyo on 09-03-2024 Appearance (U) Urine appearance Clear [facility] Aspartate aminotransferase [ Enzymatic activity/volume] in Serum or PlasmaOrdered By: Nandini Arroyo on 09-03-2024 AST [Catalytic activity/Vol] Aspartate aminotransferase [Enzymatic activity/volume] in Serum or Plasma 13-39 [facility] Bacteria [Presence] in Urine by AutomatedOrdered By: Nandini Arroyo on 09-03-2024 Bacteria Auto Ql (U) Bacteria [Presence] in Urine by Automated None Seen [facility] Barbiturates [Presence] in U rine by Screen methodOrdered By: Nandini Arroyo on 09-03-2024 Barbiturates Screen Ql (U) Barbiturates [Presence] in Urine by Screen method Negative [facility] Basophils Auto (Bld) [#/Vol] Ordered By: Nandini Arroyo on 09-03-2024 Basophils (Bld) [#/Vol] Automated basoph il count 0.0-0.2 [facility] Basophils/100 WBC Auto (Bld) Ordered By: Nandini Arroyo on 09-03-2024 Basophils/100 WBC (Bld) Automated basophil % . [facility] Benzodiazepines Screen Ql (U )Ordered By: Nandini Arroyo on 09-03-2024 Benzodiazepines Ql (U) Benzodiazepines [Presence] in Urine by Screen method Negative [facility] Benzoylecgonine [Presence] i n Urine by Screen methodOrdered By: Nandini Arroyo on 09-03-2024 Benzoylecgonine Screen Ql (U) Benzoylecgonine [Presence] in Urine by Screen method Negative [facility] Bilirubin Test strip Ql (U)O rdered By: Nandini Arroyo on 09-03-2024 Bilirubin Ql (U) Bilirubin.total [Presence] in Urine by Test strip Negative [facility] Bilirubin.total [Mass/volume ] in Serum or PlasmaOrdered By: Nandini Arroyo on 09-03-2024 Bilirubin [Mass/Vol] Bilirubin.total [Mass/volume] in Serum or Plasma 0.3-1.0 [facility] Calcium [Mass/volume] in Ser um or PlasmaOrdered By: Nandini Arroyo on 09-03-2024 Calcium [Mass/Vol] Calcium [Mass/volume ] in Serum or Plasma 8.6-10.3 [facility] Cannabinoids [Presence] in U rine by Screen methodOrdered By: Nandini Arroyo on 09-03-2024 Cannabinoids Screen Ql (U) Cannabinoids [Presence] in Urine by Screen method Negative [facility] Comment on above: These are unconfirme d results and should not be used for legal purposes. Drug Cut-Off Concentration: AMPH 1000 ng/mL TEDDY 200 ng/mL MCKENNA 200 ng/mL COCM 300 ng/mL OP 300 ng/mL PCP 25 ng/mL THC 20 ng/mL Carbon dioxide, total [Moles /volume] in Serum or PlasmaOrdered By: Nandini Arroyo on 09-03-2024 CO2 [Moles/Vol] Carbon dioxide, tota l [Moles/volume] in Serum or Plasma 21.0-31.0 [facility] Chloride [Moles/volume] in [place] or PlasmaOrdered By: Nandini Arroyo on 09-03-2024 Chloride [Moles/Vol] Chloride [Moles/volume] in Serum or Plasma 98-107 [facility] Color Auto (U)Ordered By: Lauryn Arroyo on 09-03-2024 Color (U) Color of Urine by Auto Yellow [facility] Blood Count Auto Di ffon 09-03-2024 Basophils (Bld) [#/Vol] 0.1 10*3/uL Normal 0.0-0.2 [facility] Comment on above: Result Comment: PERF ORMED BY: [place] [address] PATHOLOGIST [employer] LEAD GINA STEPHENSON M.D. Performed By: #### E ANTOINETTE, CBC, CMP #### [facility] [address] Basophils/100 WBC (Bld) 0.5 % Normal . [facility] Comment on above: Performed By: #### E ANTOINETTE, CBC, CMP #### [facility] [address] [place] [address] [place] Eosinophils (Bld) [#/Vol] 0.1 10*3/uL Normal 0.0-0.45 [facility] Comment on above: Performed By: #### E ANTOINETTE, CBC, CMP #### [facility] [address] [place] [address] [place] Eosinophils/100 WBC (Bld) 0.5 % Normal . [facility] Comment on above: Performed By: #### E ANTOINETTE, CBC, CMP #### [facility] [address] Erythrocyte distribution width (RBC) [Ratio] 13.8 % Normal 11.9-15.3 [facility] Comment on above: Performed By: #### E ANTOINETTE, CBC, CMP #### [address] Hematocrit (Bld) [Volume fraction] 40.4 % Normal 34.0-46.4 [facility] Comment on above: Performed By: #### E ANTOINETTE, CBC, CMP #### [address] Hemoglobin (Bld) [Mass/Vol] 13.8 g/dL Normal 11.8-15.4 [facility] Comment on above: Performed By: #### E ANTOINETTE, CBC, CMP #### [address] Lymphocytes (Bld) [#/Vol] 1.7 10*3/uL Normal 1.00-4.8 [facility] Comment on above: Performed By: #### E ANTOINETTE, CBC, CMP #### [address] Lymphocytes/100 WBC (Bld) 15.1 % Normal . [facility] Comment on above: Performed By: #### E ANTOINETTE, CBC, CMP #### [address] MCH (RBC) [Entitic mass] 27.4 pg Normal 24.7-34.3 [facility] Comment on above: Performed By: #### E ANTOINETTE, CBC, CMP #### [address] MCV (RBC) [Entitic vol] 80.4 fL Normal 80-100 [facility] Comment on above: Performed By: #### E ANTOINETTE, CBC, CMP #### [address] Mean Corpuscular HGB Conc 34.1 g/dL Normal 32.0-35.0 [facility] Comment on above: Performed By: #### E ANTOINETTE, CBC, CMP #### [address] Monocytes (Bld) [#/Vol] 0.4 10*3/uL Normal 0.0-0.8 [facility] Comment on above: Performed By: #### E ANTOINETTE, CBC, CMP #### [address] Monocytes/100 WBC (Bld) 19.65 % Normal 0.00-20.00 [facility] Comment on above: Performed By: #### E ANTOINETTE, CBC, CMP #### [address] Monocytes/100 WBC (Bld) 3.4 % Normal . [facility] Comment on above: Performed By: #### E ANTOINETTE, CBC, CMP #### [address] Neutrophils (Bld) [#/Vol] 9.1 10*3/uL High 1.8-7.7 [facility] Comment on above: Performed By: #### E ANTOINETTE CBC, CMP #### [address] Neutrophils/100 WBC (Bld) 80.5 % Normal . [facility] Comment on above: Performed By: #### E ANTOINETTE CBC, CMP #### [address] NRBC% 0.1 /100{WBC} Normal 0-0.5 [facility] Comment on above: Performed By: #### E ANTOINETTE, CBC, CMP #### [address] Platelet mean volume (Bld) [Entitic vol] 7.8 fL Normal 6.3-10.7 [facility] Comment on above: Performed By: #### E ANTOINETTE, CBC, CMP #### [address] Platelets (Bld) [#/Vol] 383 10*3/uL Normal 150-450 [facility] Comment on above: Performed By: #### E ANTOINETTE, CBC, CMP #### [address] [place] [address] [place] RBC (Bld) [#/Vol] 5.03 10*6/uL High 3.60-5.00 [facility] Comment on above: Performed By: #### E DARLINE CURRY, CMP #### [address] WBC (Bld) [#/Vol] 11.3 10*3/uL Normal 3.8-11.6 [facility] Comment on above: Performed By: #### E ANTOINETTE CBC, CMP #### [address] Comprehensive Metabolic Pane javy 09-03-2024 Albumin [Mass/Vol] 4.2 g/dL Normal 3.5-5.7 [facility] Comment on above: Performed By: #### E DARLINE CURRY, CMP #### [address] Albumin/Globulin [Mass ratio] 1.4 {ratio} Normal [facility] Comment on above: Performed By: #### E DARLINE CURRY, CMP #### [address] ALP [Catalytic activity/Vol] 81 U/L Normal 34-104 [facility] Comment on above: Performed By: #### E DARLINE CURRY, CMP #### [address] ALT [Catalytic activity/Vol] 22 U/L Normal 7-52 [facility] Comment on above: Performed By: #### E ANTOINETTE CBC, CMP #### [address] Anion gap [Moles/Vol] 9.7 mmol/L Normal 6.0-15.0 [facility] Comment on above: Performed By: #### E ANTOINETTE CBC, CMP #### [address] AST [Catalytic activity/Vol] 21 U/L Normal 13-39 [facility] Comment on above: Performed By: #### E ANTOINETTE, CBC, CMP #### [address] Bilirubin [Mass/Vol] 0.3 mg/dL Normal 0.3-1.0 [facility] Comment on above: Performed By: #### E ANTOINETTE CBC, CMP #### [address] Calcium [Mass/Vol] 8.9 mg/dL Normal 8.6-10.3 [facility] Comment on above: Performed By: #### E ANTOINETTE CBC, CMP #### [address] Chloride [Moles/Vol] 106 mmol/L Normal 98-107 [facility] Comment on above: Performed By: #### E ANTOINETTE CBC, CMP #### [address] CO2 [Moles/Vol] 25.3 mmol/L Normal 21.0-31.0 [facility] Comment on above: Performed By: #### E ANTOINETTE CBC, CMP #### [place] [address] [place] Creatinine [Mass/Vol] 0.66 mg/dL Normal 0.60-1.20 [facility] Comment on above: Performed By: #### E DARLINE CURRY, CMP #### [place] [address] [place] Creatinine Clr Calc Pharmacy 191.99 Normal [facility] Comment on above: Result Comment: PERF ORMED BY: [place] [address] PATHOLOGIST [employer] GINA STEPHENSON M.D. Performed By: #### E DARLINE CURRY, CMP #### [place] [address] [place] GFR/1.73 sq M.predicted MDRD (S/P/Bld) [Vol rate/Area] mL/min/{1.73_m2} Normal [facility] Comment on above: Performed By: #### E ANTOINETTE, CBC, CMP #### [address] Globulin (S) [Mass/Vol] 3.1 g/dL Normal [facility] Comment on above: Performed By: #### E DARLINE CURRY, CMP #### [address] Glucose [Mass/Vol] 110 mg/dL High 70-100 [facility] Comment on above: Result Comment: [facility] Glucose Reference Range is dependent on time and content of last meal. Glucose of more than 200 mg/dL in a nonstressed, ambulatory subject supports the diagnosis of Diabetes Mellitus. ADA recommended reference range Performed By: #### E DARLINE CURRY, CMP #### [address] Potassium [Moles/Vol] 4.0 mmol/L Normal 3.5-5.1 [facility] Comment on above: Performed By: #### E DARLINE CURRY, CMP #### [address] Protein [Mass/Vol] 7.3 g/dL Normal 6.4-8.9 [facility] Comment on above: Performed By: #### E DARLINE CURRY, CMP #### [address] Sodium [Moles/Vol] 137 mmol/L Normal 136-145 [facility] Comment on above: Performed By: #### E DARLINE CURRY, CMP #### [address] Urea nitrogen [Mass/Vol] 13 mg/dL Normal 7-25 [facility] Comment on above: Performed By: #### E DARLINE CURRY, CMP #### [address] Creatinine [Mass/volume] in Serum or PlasmaOrdered By: Nandini Arroyo on 09-03-2024 Creatinine [Mass/Vol] Creatinine [Mass/volume] in Serum or Plasma 0.60-1.20 [facility] Dipstick and Microscopicon 0 09-03-2024 Appearance (U) Clear Normal Clear [facility] Comment on above: Order Comment: Name Collection Type:: Clean-Voided Midstream Performed By: #### U HCG, ADDONUAPLUS, URDS #### [facility] [address] [place] [address] [place] Bacteria,Urine Rare Normal None Seen [facility] Comment on above: Order Comment: Name Collection Type:: Clean-Voided Midstream Performed By: #### U HCG, ADDONUAPLUS, URDS #### [facility] [address] [place] [address] [place] Bilirubin,Urine Negative Normal Negative [facility] Comment on above: Order Comment: Name Collection Type:: Clean-Voided Midstream Performed By: #### U HCG, ADDONUAPLUS, URDS #### [facility] [address] [place] [address] [place] Color (U) Colorless Normal Yellow [facility] Comment on above: Order Comment: Name Collection Type:: Clean-Voided Midstream Performed By: #### U HCG, ADDONUAPLUS, URDS #### [facility] [address] [place] [address] [place] Glucose Ql (U) Normal Normal Normal [facility] Comment on above: Order Comment: Name Collection Type:: Clean-Voided Midstream Performed By: #### U HCG, ADDONUAPLUS, URDS #### [facility] [address] [place] [address] [place] Hyaline Casts,Urine None Normal 0-8 [facility] Comment on above: Order Comment: Name Collection Type:: Clean-Voided Midstream Performed By: #### U HCG, ADDONUAPLUS, URDS #### [facility] [address] [place] [address] [place] Ketones Ql (U) Negative Normal Negative [facility] Comment on above: Order Comment: Name Collection Type:: Clean-Voided Midstream Performed By: #### U HCG, ADDONUAPLUS, URDS #### [facility] [address] [place] [address] [place] Leukocyte esterase Test strip Ql (U) Negative Normal Negative [facility] Comment on above: Order Comment: Name Collection Type:: Clean-Voided Midstream Performed By: #### U HCG, ADDONUAPLUS, URDS #### [facility] [address] [place] [address] [place] Mucus,Urine Rare Normal [facility] Comment on above: Order Comment: Name Collection Type:: Clean-Voided Midstream Performed By: #### U HCG, ADDONUAPLUS, URDS #### [place] [address] [place] Nitrite,Urine Negative Normal Negative [facility] Comment on above: Order Comment: Name Collection Type:: Clean-Voided Midstream Performed By: #### U HCG, ADDONUAPLUS, URDS #### [address] Occult Blood,Urine Trace High Negative [facility] Comment on above: Order Comment: Name Collection Type:: Clean-Voided Midstream Performed By: #### U HCG, ADDONUAPLUS, URDS #### [address] pH (U) 5.5 [pH] Normal 5.0-9.0 [facility] Comment on above: Order Comment: Name Collection Type:: Clean-Voided Midstream Performed By: #### U HCG, ADDONUAPLUS, URDS #### [place] [address] [place] Protein,Urine Negative Normal Negative [facility] Comment on above: Order Comment: Name Collection Type:: Clean-Voided Midstream Performed By: #### U HCG, ADDONUAPLUS, URDS #### [place] [address] [place] RBC,Urine 1-2 Normal 0-4 [facility] Comment on above: Order Comment: Name Collection Type:: Clean-Voided Midstream Performed By: #### U HCG, ADDONUAPLUS, URDS #### [address] Specificy [place],Urine 1.011 Normal 1.001-1.030 [facility] Comment on above: Order Comment: Name Collection Type:: Clean-Voided Midstream Performed By: #### U HCG, ADDONUAPLUS, URDS #### [facility] [address] [place] [address] Squamous Epithelial Cell,Urine 1-2 Normal 0-2 [facility] Comment on above: Order Comment: Name Collection Type:: Clean-Voided Midstream Performed By: #### U HCG, ADDONUAPLUS, URDS #### [address] Urobilinogen,Urine Normal Normal Normal [facility] Comment on above: Order Comment: Name Collection Type:: Clean-Voided Midstream Performed By: #### U HCG, ADDONUAPLUS, URDS #### [address] WBC,Urine 1-2 Normal 0-4 [facility] Comment on above: Order Comment: Name Collection Type:: Clean-Voided Midstream Performed By: #### U HCG, ADDONUAPLUS, URDS #### [address] Drug Screen,Urineon 09-03-19 25 Amphetamine Screen,Urine Negative Normal Negative [facility] Comment on above: Performed By: #### U HCG, ADDONUAPLUS, URDS #### [address] Barbiturate Screen,Urine Negative Normal Negative [facility] Comment on above: Performed By: #### U HCG, ADDONUAPLUS, URDS #### [address] Benzodiazepines Screen,Urine Negative Normal Negative [facility] Comment on above: Performed By: #### U HCG, ADDONUAPLUS, URDS #### [address] Cannabinoid Screen,Urine Negative Normal Negative [facility] Comment on above: Result Comment: Thes e are unconfirmed results and should not be used for legal purposes. Drug Cut-Off Concentration: AMPH 1000 ng/mL TEDDY 200 ng/mL MCKENNA 200 ng/mL COCM 300 ng/mL OP 300 ng/mL PCP 25 ng/mL THC 20 ng/mL PERFORMED BY: [place] [address] PATHOLOGIST [employer] GINA STEPHENSON M.D. Performed By: #### U HCG, ADDONUAPLUS, URDS #### [facility] [address] [place] [address] Cocaine Screen,Urine Negative Normal Negative [facility] Comment on above: Performed By: #### U HCG, ADDONUAPLUS, URDS #### [facility] [address] [place] [address] Opiate Screen,Urine Negative Normal Negative [facility] Comment on above: Performed By: #### U HCG, ADDONUAPLUS, URDS #### [facility] [address] [place] [address] Phencyclidine Screen,Urine Negative Normal Negative [facility] Comment on above: Performed By: #### U HCG, ADDONUAPLUS, URDS #### [facility] [address] [place] [address] [place] Eosinophils Auto (Bld) [#/Vo l]Ordered By: Nandini Arroyo on 09-03-2024 Eosinophils (Bld) [#/Vol] Automated eosinophil count 0.0-0.45 [facility] Eosinophils/100 WBC Auto (Bl d)Ordered By: Nandini Arroyo on 09-03-2024 Eosinophils/100 WBC (Bld) Automated eosinophil % . [facility] Epithelial cells.squamous [# /area] in Urine sediment by Automated countOrdered By: Nandini Arroyo on 09-03-2024 Epithelial cells.squamous Auto (Urine sed) [#/Area] Epithelial cells.squamous [#/area] in Urine sediment by Automated count 0-2 [facility] Erythrocyte distribution wid th Auto (RBC) [Ratio]Ordered By: Nandini Arroyo on 09-03-2024 Erythrocyte distribution width (RBC) [Ratio] Erythrocyte distribution width [Ratio] by Automated count 11.9-15.3 [facility] Erythrocytes [#/area] in Uri ne sediment by Automated countOrdered By: Nandini Arroyo on 09-03-2024 RBC Auto (Urine sed) [#/Area] Erythrocytes [#/area] in Urine sediment by Automated count 0-4 [facility] Ethanol [Mass/volume] in Ser um or PlasmaOrdered By: Nandini Arroyo on 09-03-2024 Ethanol [Mass/Vol] Ethanol [Mass/volume ] in Serum or Plasma [facility] Comment on above: Test not performed Ethyl Alcohol Profileon 08-09 Ethanol [Mass/Vol] mg/dL Normal [facility] Comment on above: Performed By: #### E ANTOINETTE, CBC, CMP #### [facility] [address] Percent Ethanol Not performed Normal [facility] Comment on above: Result Comment: PERF ORMED BY: [place] [address] PATHOLOGIST [employer] GINA STEPHENSON M.D. Performed By: #### E ANTOINETTE, CBC, CMP #### [facility] [address] Globulin Calc (S) [Mass/Vol] Ordered By: Nandini Arroyo on 09-03-2024 Globulin (S) [Mass/Vol] Serum globulin measurement by calculation (mass/volume) [facility] Glucose [Mass/volume] in Ser um or PlasmaOrdered By: Nandini Arroyo on 09-03-2024 Glucose [Mass/Vol] Glucose [Mass/volume ] in Serum or Plasma High 70-100 [facility] Comment on above: ADA recommended refe rence rangeRandom Glucose Reference Range is dependent on time and content of last meal. Glucose of more than 200 mg/dL in a nonstressed, ambulatory subject supports the diagnosis of Diabetes Mellitus. Glucose [Mass/volume] in Uri ne by Test stripOrdered By: Nandini Arroyo on 09-03-2024 Glucose Test strip (U) [Mass/Vol] Glucose [Mass/volume] in Urine by Test strip Normal [facility] HCG ( test) IA.rapi d Ql (U)Ordered By: Nandini Arroyo on 09-03-2024 HCG ( test) Ql (U) Urine human chorionic gonadotropin (hCG) detection by immunoassay [facility] HCG,Urineon 09-03-2024 Beta HCG ( test) Ql (U) Negative Normal [facility] Comment on above: Order Comment: Name Collection Type:: Clean-Voided Midstream Result Comment: PERF ORMED BY: [facility] [address] [place] [address] PATHOLOGIST [employer] LEAD GINA STEPHENSON M.D. Performed By: #### U HCG, ADDONUAPLUS, URDS #### [facility] [address] Hematocrit Auto (Bld) [Volum e fraction]Ordered By: Nandiin Arroyo on 09-03-2024 Hematocrit (Bld) [Volume fraction] Hematocrit [Volume Fraction] of Blood by Automated count 34.0-46.4 [facility] Hemoglobin Test strip Ql (U) Ordered By: Nandini Arroyo on 09-03-2024 Hemoglobin Ql (U) Hemoglobin [Presence ] in Urine by Test strip High Negative [facility] Hemoglobin [Mass/volume] in BloodOrdered By: Nandini Arroyo on 09-03-2024 Hemoglobin (Bld) [Mass/Vol] Hemoglobin [Mass/volume] in Blood 11.8-15.4 [facility] Hyaline casts [#/area] in Ur ine sediment by Automated countOrdered By: Nandini Arroyo on 09-03-2024 Hyaline casts Auto (Urine sed) [#/Area] Hyaline casts [#/area] in Urine sediment by Automated count 0-8 [facility] Ketones Test strip Ql (U)Ord ered By: Nandini Arroyo on 09-03-2024 Ketones Ql (U) Ketones [Presence] i n Urine by Test strip Negative [facility] Leukocyte esterase [Presence ] in Urine by Test stripOrdered By: Nandini Arroyo on 09-03-2024 Leukocyte esterase Test strip Ql (U) Leukocyte esterase [Presence] in Urine by Test strip Negative [facility] Leukocytes [#/area] in Urine sediment by Automated countOrdered By: Nandini Arroyo on 09-03-2024 WBC Auto (Urine sed) [#/Area] Leukocytes [#/area] in Urine sediment by Automated count 0-4 [facility] Leukocytes [#/volume] correc krzysztof for nucleated erythrocytes in Blood by Automated counOrdered By: Nandini Arroyo on 09-03-2024 WBC corrected for nucl RBC Auto (Bld) [#/Vol] Leukocytes [#/volume] corrected for nucleated erythrocytes in Blood by Automated coun 3.8-11.6 [facility] Lymphocytes Auto (Bld) [#/Vo l]Ordered By: Nandini Arroyo on 09-03-2024 Lymphocytes (Bld) [#/Vol] Lymphocytes [#/volume] in Blood by Automated count 1.00-4.8 [facility] Lymphocytes/100 WBC Auto (Bl d)Ordered By: Nandini Arroyo on 09-03-2024 Lymphocytes/100 WBC (Bld) Lymphocytes/100 leukocytes in Blood by Automated count . [facility] MCH Auto (RBC) [Entitic mass ]Ordered By: Nandini Arroyo on 09-03-2024 MCH (RBC) [Entitic mass] MCH [Entitic ma ss] by Automated count 24.7-34.3 [facility] MCHC Auto (RBC) [Mass/Vol]Or dered By: Nandini Arroyo on 09-03-2024 MCHC (RBC) [Mass/Vol] MCHC [Mass/volume] by Automated count 32.0-35.0 [facility] MCV Auto (RBC) [Entitic vol] Ordered By: Nandini Arroyo on 09-03-2024 MCV (RBC) [Entitic vol] MCV [Entitic vol ume] by Automated count 80-100 [facility] Monocyte distribution width [Entitic volume] in Blood by AutomatedOrdered By: Nandini Arroyo on 09-03-2024 Monocyte distribution width Auto (Bld) [Entitic vol] Monocyte distribution width [Entitic volume] in Blood by Automated 0.00-20.00 [facility] Monocytes Auto (Bld) [#/Vol] Ordered By: Nandini Arroyo on 09-03-2024 Monocytes (Bld) [#/Vol] Automated blood monocyte count 0.0-0.8 [facility] Monocytes/100 WBC Auto (Bld) Ordered By: Nandini Arroyo on 09-03-2024 Monocytes/100 WBC (Bld) Automated monocyte % . [facility] Mucus [Presence] in Urine by AutomatedOrdered By: Nandini Arroyo on 09-03-2024 Mucus Auto Ql (U) Mucus [Presence] in Urine by Automated [facility] Neutrophils Auto (Bld) [#/Vo l]Ordered By: Nandini Arroyo on 09-03-2024 Neutrophils (Bld) [#/Vol] Neutrophils [#/volume] in Blood by Automated count High 1.8-7.7 [facility] Neutrophils/100 WBC Auto (Bl d)Ordered By: Nandini Arroyo on 09-03-2024 Neutrophils/100 WBC (Bld) Automated neutrophil % . [facility] Nitrite Test strip Ql (U)Ord ered By: Nandini Arroyo on 09-03-2024 Nitrite Ql (U) Nitrite [Presence] i n Urine by Test strip Negative [facility] No Panel InformationOrdered By: Nandini Arroyo on 09-03-2024 Estimated GFR (CKD-EPI) > 60.0 mL/Min [facility] Creatinine Clearance (Chem 191.99 [facility] Nucleated erythrocytes [Pres ence] in Blood by Automated countOrdered By: Nandini Arroyo on 09-03-2024 Nucleated RBC Auto Ql (Bld) Nucleated erythrocytes [Presence] in Blood by Automated count 0-0.5 [facility] Opiates [Presence] in Urine by Screen methodOrdered By: Nandini Arroyo on 09-03-2024 Opiates Screen Ql (U) Opiates [Presence] in Urine by Screen method Negative [facility] Phencyclidine Screen Ql (U)O rdered By: Nandini Arroyo on 09-03-2024 Phencyclidine Ql (U) Phencyclidine [Presence] in Urine by Screen method Negative [facility] Platelet mean volume Auto (B ld) [Entitic vol]Ordered By: Nandini Arroyo on 09-03-2024 Platelet mean volume (Bld) [Entitic vol] Platelet mean volume [Entitic volume] in Blood by Automated count 6.3-10.7 [facility] Platelets Auto (Bld) [#/Vol] Ordered By: Nandini Arroyo on 09-03-2024 Platelets (Bld) [#/Vol] Platelets [#/vol ume] in Blood by Automated count 150-450 [facility] Potassium [Moles/volume] in Serum or PlasmaOrdered By: Nandini Arroyo on 09-03-2024 Potassium [Moles/Vol] Potassium [Moles/volume] in Serum or Plasma 3.5-5.1 [facility] Protein Test strip (U) [Mass /Vol]Ordered By: Nandini Arroyo on 09-03-2024 Protein (U) [Mass/Vol] Protein [Mass/vol ume] in Urine by Test strip Negative [facility] Protein [Mass/volume] in Ser um or PlasmaOrdered By: Nandini Arroyo on 09-03-2024 Protein [Mass/Vol] Protein [Mass/volume ] in Serum or Plasma 6.4-8.9 [facility] RBC Auto (Bld) [#/Vol]Ordere d By: Nandini Arroyo on 09-03-2024 RBC (Bld) [#/Vol] Erythrocytes [#/volume] in Blood by Automated count High 3.60-5.00 [facility] Serum or plasma albumin/glob ulin mass ratioOrdered By: Nandini Arroyo on 09-03-2024 Albumin/Globulin [Mass ratio] Serum or plasma albumin/globulin mass ratio [facility] Serum or plasma anion gap de terminationOrdered By: Nandini Arroyo on 09-03-2024 Anion gap [Moles/Vol] Serum or plasma an ion gap determination 6.0-15.0 [facility] Sodium [Moles/volume] in Ser um or PlasmaOrdered By: Nandini Arroyo on 09-03-2024 Sodium [Moles/Vol] Sodium [Moles/volume ] in Serum or Plasma 136-145 [facility] Specific gravity Test strip (U) [Rel density]Ordered By: Nandini Arroyo on 09-03-2024 Specific gravity (U) [Rel density] Specific gravity of Urine by Test strip 1.001-1.030 [facility] Urea nitrogen [Mass/volume] in Serum or PlasmaOrdered By: Nandini Arroyo on 09-03-2024 Urea nitrogen [Mass/Vol] Urea nitrogen [Mass/volume] in Serum or Plasma 7-25 [facility] Urobilinogen Test strip (U) [Mass/Vol]Ordered By: Nandini Arroyo on 09-03-2024 Urobilinogen (U) [Mass/Vol] Urobilinogen [Mass/volume] in Urine by Test strip Normal [facility] WBC Auto (Bld) [#/Vol]Ordere d By: Nandini Arroyo on 09-03-2024 WBC (Bld) [#/Vol] Leukocytes [#/volume ] in Blood by Automated count 3.8-11.6 [facility] pH Test strip (U)Ordered By: Nandini Arroyo on 09-03-2024 pH (U) pH of Urine by Test strip 5.0-9.0 [facility] US PELVIC WITH TRANSVAGINALo n 07-29-2024 US PELVIC WITH TRANSVAGINAL US PELVIC WITH TRANSVAGINAL PELVIC ULTRASOUND HISTORY: Verify IUD placement, ovarian cyst COMPARISON: None TECHNIQUE: Transabdominal and transvaginal sonographic evaluation of the pelvis. Transabdominal imaging performed to evaluate for extra adnexal pelvic pathology. Transvaginal imaging performed for better delineation of the adnexal and endometrial contents. FINDINGS: The uterus measures 6.5 x 5.1 x 3.2 cm. IUD is difficult to well visualize due to patient's body habitus though on the cine images IUD does appear to be well positioned within the endometrial cavity. The right ovary measures 3.0 x 2.6 x 1.9 cm and left ovary measures 3.5 x 2.4 x 2.1 cm. Dominant follicle left ovary measuring 2.2 cm. No free fluid in the pelvis. IMPRESSION: * Although difficult to well visualize IUD does appear to be well positioned within the endometrial cavity. * Dominant left ovarian follicle measuring 2.2 cm. Finalized by Andrey Marcos MD on 07/29/2024 11:29 AM Normal [facility] Cytologyon 07-23-2024 Cytology Normal [facility] Comment on above: Result Comment: [facility] [address] [place] [address] Gynecologic Cytology Consultation Patient Name:MONE ARRIAZA:2000 (Age: 24)Gender:FTaken:07/23/2024Reported:08/04/2024Physician(s):Cosmo Ortiz, C.N.P. ([phone])Copy To: Rec. #:[id number]: #[id number] Final Cytologic Interpretation ThinPrep Pap Test (Cervical): Satisfactory for evaluation. A transformation zone component is present. NEGATIVE FOR INTRAEPITHELIAL LESION OR MALIGNANCY. [facility]/08/04/2024 [facility], [address] [place] [id number], License number: [id number]. Electronically Signed Out By LILIBETH Coronel(ASCP) Date of Last Menstrual Period: (None Given) Other Clinical Conditions: IUD Previous abnormal pap LSIL Z01.419 Hr Generalist exam wo/abn findings Source of Specimen ThinPrep Pap Test (Cervical) Thin Prep Pap (FLAVORING MACHINE OPERATOR) Fee Code(s): G0145 The Pap test is a screening test with an inherent, but low, probability of error. The Pap test is primarily effective for the diagnosis and prevention of squamous cell carcinoma. Regular screening is critical for prevention. ThinPrep liquid-based slides, which meet the Silver Chaser criteria for automated screening, have been screened by the ThinPrep Imaging System (as of 03/24/07) along with an additional manual rescreening by a planetarium sky show technician and, if indicated, by a pathologist. HIGH RISK HPV W/GENOon 07-23 HPV 31+33+35+39+45+51+52+56+ 58+59+66+68 DNA LAWANDA+probe Ql (Cvx) HPV SPECIMEN TYPE ThinPrep HPV 16 Negative (qualifier value) HPV 18 Negative (qualifier value) OTHER HIGH RISK HPV Positive (qualifier value) For the DNA of any or combination of the following HPV types: 31,33,35,45, 52,56,58,59,66 and 68. Normal [facility] Comment on above: Performed By: #### 7 1431-1 #### [facility] ([id number]) [address] [place] [address], [place] [address] [facility] ([id number]) [address] [place] [address], [address] [place] [address] CT enterographyon 03-18-[address] [facility] [address] [place] [address] CT Scan Report Signed Patient: Mone Arriaza MR#: [id number] 2 : 2000 Acct:[id number] Age/Sex: 23 / F ADM Date: 03/18/24 Loc: CT Room: Type: [facility] Attending Dr: Noris May MD Copies to: Noris May MD Ordering Provider: Noris May MD Date of Service: 03/18/24 CT/CT enterography: R10.9 - Unspecified abdominal pain CT enterography TECHNIQUE: Axial imaging with 2-D reconstruction.90 cc of Isovue-300. The CT exam was performed using one or more the following dose reduction techniques: Automated exposure control, adjustment of the MA and/or Kv according to patient size, or use of the iterative reconstruction technique. COMPARISON: None History: Abdominal pain. Multiple episodes of defecation daily with urgency. Rectal hemorrhage. Interval bowel syndrome LIMITATIONS: None LOWER THORAX Unremarkable LIVER: Hepatic steatosis. GALLBLADDER: No gallbladder abnormality identified. BILE DUCTS: No dilatation SPLEEN: Unremarkable PANCREAS: Unremarkable ADRENAL GLANDS: Unremarkable KIDNEYS:Unremarkable AORTA: No abdominal aortic aneurysm identified. RETROPERITONEUM: No significant retroperitoneal abnormalities identified. MESENTERY:Unremarkable SMALL BOWEL: The small bowel loops are nondistended. APPENDIX: The appendix is normal. COLON: Moderate constipation. No colitis or diverticulitis. Nondistended ascending and transverse colon. Nondistended descending colon. Mild distention of sigmoid colon secondary to stool. URINARY BLADDER: Urinary bladder is unremarkable. REPRODUCTIVE SYSTEM: IUD present. PNEUMOPERITONEUM: None PERITONEAL FLUID:None BONY STRUCTURES: Unremarkable ABDOMINAL WALL: Unremarkable CT/CT enterography IMPRESSION: Unremarkable small bowel. Moderate constipation. No obvious active bleeding. Impression dictated by: Noah Gibbs M.D.03/18/2024 3:25 PM Dictation Location: [place] [address] Transcribed By: [facility] 03/18/24 1525 Dictated By: Noah Gibbs DO 03/18/24 1513 Signed By: 03/18/24 1525 Normal [facility] Outside Recordson 03-11-2024 Outside Records [id number]. 00OTGTIFF [facility] Outside Recordson 12-03-2023 Outside Records [id number]. [facility] 07[facility]30[facility]19 18 CR Chest Portable Patient Name: MONE ARRIAZA Diagnostic Radiology Exam Date/Time 07/30/2017 01:31:40 EST Exam CR Chest Portable Ordering Physician WENDI EMMANUEL SCOTT Accession Number [id number] CPT4 Codes 95328 () Reason For Exam gasps for air at night Report Indication: Gasps for air at night . Comparison: None. Technique: A single frontal view of chest was obtained. Findings: The lungs are clear. The cardiomediastinal silhouette is within normal limits. There is no visible pneumothorax or pleural effusion. Impression: No acute cardiopulmonary findings. Report Dictated on Workstation: [id number] Final Dictated: 07/30/2017 2:04 am Dictating Physician: MD VARGAS KERISTEN L Signed Date and Time: 07/30/2017 2:05 am Signed by: MD VARGAS KERISTEN L Transcribed Date and Time: 07/30/2017 2:04 Normal [facility] Vital Signs Date Time Vital Sign Value Performing Clinician Facility 09-23-2024 14:33-0400 Body height 175.26 cm Deidre Murillo APRN Work Phone: [facility] 09-23-2024 14:33-0400 Body mass index (BMI) [Ratio] 44.4 kg/m2 Deidre Murillo APRN Work Phone: [facility] 09-23-2024 14:33-0400 Body temperature 98.3 [degF] Deidre Murillo APRN Work Phone: [facility] 09-23-2024 14:33-0400 Body weight 136.53 kg Deidre Murillo APRN Work Phone: [facility] 09-23-2024 14:33-0400 Diastolic blood pressure 85 mm[Hg] Deidre Chidi RENOVATOR MACHINE OPERATOR Work Phone: [facility] 09-23-2024 14:33-0400 Heart rate 77 /min Deidre Chidi RENOVATOR MACHINE OPERATOR Work Phone: [facility] 09-23-2024 14:33-0400 Respiratory rate 16 /min Deidre Chidi RENOVATOR MACHINE OPERATOR Work Phone: [facility] 09-23-2024 14:33-0400 SaO2% (BldA) [Mass fraction] 96 % Deidre Chidi RENOVATOR MACHINE OPERATOR Work Phone: [facility] 09-23-2024 14:33-0400 Systolic blood pressure 125 mm[Hg] Deidre Chidi RENOVATOR MACHINE OPERATOR Work Phone: [facility] 09-06-2024 07:30-0500 Body temperature 97.8 [degF] Deidre Chidi RENOVATOR MACHINE OPERATOR Work Phone: [facility] 09-06-2024 07:30-0500 Diastolic blood pressure 87 mm[Hg] Deidre Chidi RENOVATOR MACHINE OPERATOR Work Phone: [facility] 09-06-2024 07:30-0500 Heart rate 67 /min Deidre Chidi RENOVATOR MACHINE OPERATOR Work Phone: [facility] 09-06-2024 07:30-0500 Respiratory rate 16 /min Deidre Chidi RENOVATOR MACHINE OPERATOR Work Phone: [facility] 09-06-2024 07:30-0500 SaO2% (BldA) [Mass fraction] 97 % Deidre Chidi RENOVATOR MACHINE OPERATOR Work Phone: [facility] 09-06-2024 07:30-0500 Systolic blood pressure 137 mm[Hg] Deidre Chidi RENOVATOR MACHINE OPERATOR Work Phone: [facility] 09-03-2024 14:38-0500 Body height 175.26 cm Deidre Chidi RENOVATOR MACHINE OPERATOR Work Phone: [facility] 09-03-2024 11:27-0500 Body weight 136.62 kg Deidre Chidi RENOVATOR MACHINE OPERATOR Work Phone: [facility] 09-03-2024 06:20-0500 Body height 175.26 cm Deidre Chidi RENOVATOR MACHINE OPERATOR Work Phone: [facility] 09-03-2024 06:20-0500 Body temperature 98.7 [degF] Deidre Chidi RENOVATOR MACHINE OPERATOR Work Phone: [facility] 09-03-2024 06:20-0500 Body weight 136.07 kg Deidre Chidi RENOVATOR MACHINE OPERATOR Work Phone: [facility] 09-03-2024 06:20-0500 Diastolic blood pressure 108 mm[Hg] Deidre Chidi RENOVATOR MACHINE OPERATOR Work Phone: [facility] 09-03-2024 06:20-0500 Heart rate 76 /min Deidre Chidi RENOVATOR MACHINE OPERATOR Work Phone: [facility] 09-03-2024 06:20-0500 Respiratory rate 22 /min Deidre Chidi RENOVATOR MACHINE OPERATOR Work Phone: [facility] 09-03-2024 06:20-0500 SaO2% (BldA) [Mass fraction] 95 % Deidre Chidi RENOVATOR MACHINE OPERATOR Work Phone: [facility] 09-03-2024 06:20-0500 Systolic blood pressure 165 mm[Hg] Deidre Chidi RENOVATOR MACHINE OPERATOR Work Phone: [facility] 07-23-2024 09:29-0500 Body height 175.3 cm Neema Reynoldsin RENOVATOR MACHINE OPERATOR-CABLE STRANDER Work Phone: [employer] [facility] 07-23-2024 09:29-0500 Body mass index (BMI) [Ratio] 45.19 kg/m2 Neema Reynoldsin RENOVATOR MACHINE OPERATOR-CABLE STRANDER Work Phone: [employer] [facility] 07-23-2024 09:29-0500 Body weight 138.8 kg Neema Reynoldsin RENOVATOR MACHINE OPERATOR-CABLE STRANDER [facility] 07-23-2024 09:29-0500 Diastolic blood pressure 72 mm[Hg] Neema Ortiz RENOVATOR MACHINE OPERATOR-CABLE STRANDER [facility] 07-23-2024 09:29-0500 Systolic blood pressure 122 mm[Hg] Neema Ortiz RENOVATOR MACHINE OPERATOR-CABLE STRANDER Work Phone: [facility] [facility] 03-02-2024 09:35-0400 Body height 175.26 cm [facility] 03-02-2024 09:35-0400 Body mass index (BMI) [Ratio] 46 kg/m2 [facility] 03-02-2024 09:35-0400 Body weight 141.52 kg [facility] 02-21-2023 10:00-0400 Body height 173.99 cm German Flores Other [facility] Other 02-21-2023 10:00-0400 Body mass index (BMI) [Ratio] 49.82 kg/m2 German Flores Other [facility] Other 02-21-2023 10:00-0400 Body weight 150.82 kg German Minicabster Other [facility] Other 02-21-2023 10:00-0400 Diastolic blood pressure 86 mm[Hg] German Flores Other [facility] Other 02-21-2023 10:00-0400 Respiratory rate 20 /min German Minicabster Other [facility] Other 02-21-2023 10:00-0400 SaO2% (BldA) [Mass fraction] 96 % German Minicabster Other [facility] Other 02-21-2023 10:00-0400 Systolic blood pressure 140 mm[Hg] German Minicabster Other [facility] Other Encounters Encounter Date Encounter Type Care Provider Facility Start: 09-23-2024 End: 09-23-2024 Departed Referred Deidremakayla Murillo RENOVATOR MACHINE OPERATOR Work Phone: [facility] Work Phone: Start: 09-23-2024 End: 09-23-2024 ambulatory Deidre A Chidi RENOVATOR MACHINE OPERATOR Work Phone: [facility] Work Phone: Start: 09-23-2024 End: 09-23-2024 Patient encounter procedure Deidre Chidi RENOVATOR MACHINE OPERATOR Work Phone: [facility] Work Phone: Start: 09-04-2024 Non-patient / Non-visit Deidre Chidi RENOVATOR MACHINE OPERATOR Work Phone: [facility] Work Phone: Start: 09-03-2024 ambulatory Jair Rosenberg Facility:[facility] Start: 09-03-2024 End: 09-06-2024 Evaluation and management of inpatient Deidre Chidi RENOVATOR MACHINE OPERATOR Work Phone: [facility] Work Phone: Start: 08-26-2024 End: 08-26-2024 ambulatory Deidre A Chidi FLYER REPAIRER-C Facility:[facility] Start: 07-29-2024 End: 07-29-2024 ambulatory NEEMA ORTIZ [facility] Start: 07-23-2024 End: 07-23-2024 Initial preventive medicine new pt age 18-39yrs Neema Ortiz APRN-CABLE STRANDER Work Phone: [facility] Physicians Obstetrics/Gynecology Comment on above: Women's annual routi ne gynecological examination (Primary Dx); Cervical smear, as part of routine gynecological examination; Standardized adult depression screening tool completed; IUD check up; History of ovarian cyst; History of abnormal cervical Pap smear Start: 07-23-2024 End: 07-23-2024 Patient encounter procedure Neema Ortiz RENOVATOR MACHINE OPERATOR-CABLE STRANDER Work Phone: [facility] Work Phone: Start: 07-23-2024 End: 07-23-2024 ambulatory [facility] Start: 07-23-2024 End: 07-23-2024 Encounter for gynecological examination (general) (routine) without abnormal findings Neema Ortiz RENOVATOR MACHINE OPERATOR-CABLE STRANDER Work Phone: [facility] Start: 07-23-2024 End: 07-23-2024 ambulatory NEEMA M [facility] Start: 07-23-2024 Encounter for gynecological examination (general) (routine) without abnormal findings [facility] Start: 03-18-2024 End: 03-18-2024 Patient encounter procedure RENOVATOR MACHINE OPERATOR Deidre Chidi Work Phone: [facility] Work Phone: Start: 03-18-2024 End: 03-18-2024 ambulatory RENOVATOR MACHINE OPERATOR Deidre A Chidi Work Phone: [facility] Work Phone: Start: 03-02-2024 End: 03-02-[address] [facility] Work Phone: Start: 03-02-2024 End: 03-02-2024 Patient encounter procedure [facility] Gastroenterology Work Phone: Start: 11-27-2023 End: 11-27-2023 ambulatory Deidre A Chidi FLYER REPAIRER-C Facility: [facility] Start: 11-21-2023 End: 11-21-2023 ambulatory Deidre A Chidi FLYER REPAIRER-C Facility: [facility] Start: 08-08-2023 End: 08-08-2023 ambulatory RENOVATOR MACHINE OPERATOR Deidre A Chidi Work Phone: [facility] Work Phone: Start: 08-08-2023 End: 08-08-2023 Departed Referred JEAN Murillo Work Phone: [facility] Start: 03-04-2023 End: 03-04-2023 ambulatory German Flores Other [facility] Other Start: 03-04-2023 Telephone encounter German ramos [facility] Start: 02-21-2023 End: 02-21-2023 ambulatory German Flores Other [facility] Other Start: 02-21-2023 Nutrition therapy German Cardoso [facility] Start: 07-30-2017 Emergency department patient visit [facility] Procedures Date Procedure Procedure Detail Performing Clinician Start: 09-23-2024 Quick Strep (POC) Deidre Murillo APRN Work Phone: Start: 07-23-2024 Adult depression screening assessment Neema MacDevon PENA-CABLE STRANDER Work Phone: Start: 03-18-2024 CT of small intestine A BOSTON Murillo Work Phone: Plan of Treatment Date Care Activity Detail Author Start: 07-23-2025 Adult BMI Screening Adult BMI Screen ing [facility] Start: 07-23-2025 Depression Screening Depression Scre ening [facility] Start: 07-23-2025 Tobacco Screening Tobacco Screening [facility] Start: 09-23-2024 Streptococcus pyogen es [Presence] in Unspecified specimen by Organism specific culture [facility] Start: 09-23-2024 Group A Streptococcu s Culture Group A Streptococcus Culture [facility] Start: 09-06-2024 [facility] Start: 09-03-2024 Hospital admission [facility] Start: 07-29-2024 End: 07-29-2024 Patient encounter procedure 07/29/2024 8:30 AM EST Appointment [facility] - Ultrasound [address] [place] [address] [facility] - Ultrasound Start: 07-23-2024 End: 07-23-2025 Cytopathology procedure, preparation of smear, genital source Pap Smear Pathology and Cytology Routine Cervical smear, as part of routine gynecological examination Expected: 07/23/2024 (Approximate), Expires: 07/23/2025 [facility] Comment on above: Expected: 07/23/2024 (Approximate), Expires: 07/23/2025 Start: 07-23-2024 End: 07-23-2025 US Pelvis transabdominal and transvaginal Ultrasound pelvic with transvaginal Imaging Routine IUD check up History of ovarian cyst Expected: 07/23/2024, Expires: 07/23/2025 [facility] Work Phone: Comment on above: Expected: 07/23/2024 , Expires: 07/23/2025 Start: 03-08-2024 COVID-19 Vaccine ( season) COVID-19 Vaccine ( season) [facility] Start: 03-08-2024 Influenza vaccination Influenza Vacc ine [facility] Start: 10-16-2020 DTaP,Tdap and Td Vaccines (7 - Td or Tdap) DTaP,Tdap and Td Vaccines (7 - Td or Tdap) [facility] Start: 2019 Screening for malign ant neoplasm of cervix Pap Smear [facility] Start: 2016 Adult BMI Follow Up Plan Adult BMI Follow Up Plan [facility] CT Abdomen and Pelvis [facility] Patient Education Bipolar disord er - Discharge instructions [facility] Health DC Instructions Know your Meds [facility] Work Phone: Patient referral [facility] Work Phone: Streptococcus pyogen es [Presence] in Unspecified specimen by Organism specific culture [facility] Payers Date Payer Category Payer Self-pay 2023 Managed Care Other (unspecified) [employer] Member Subscriber Plan / Payer (Effective 2023-Present) Name: Mone Arriaza Relation to Subscriber: Self Name: Mone Arriaza Payer ID: [id number] (NAIC) Type: Not on file Address: [place] [id number] [place] [id number] 2023 Unknown [id number] 2021 Private Health Insurance [id number] 2000 Unknown [id number] [id number] 1998 Unknown [id number]. [id number] 2000 Unknown [id number]. 2.1286 2000 Unknown [id number]. [id number] 1998 Unknown [id number]. 2.718 Private Health Insurance Unknown [id number]. 2.531 Unknown [id number]. 2.531 Unknown [id number]. 2.531 Unknown [id number]. 2.531 Social History Date Type Detail Facility Unknown if ever smoked [facility] Other Start: 08-18-2020 End: 07-23-2024 Sex Assigned At [facility] Start: 2000 Sex Assigned At Female F [facility] Start: 03-02-2024 Tobacco smoking status NHIS Ex-smoker (finding) [facility] Start: 01-12-2019 Tobacco smoking status NHIS Never smoked tobacco [facility] Start: 01-12-2019 Tobacco use and exposure Smokeless tobacco non-user [facility] Start: 07-23-2024 Alcoholic beverage intake Current drinker of alcohol (finding) [facility] Start: 08-18-2020 End: 07-23-2024 History of Social function [facility] Adolescent depressio n screening assessment 10 [facility] Start: 01-12-2019 Alcohol Comment social [facility] Start: 2000 Sex assigned at Not on file P [facility] Start: 02-10-2015 End: 09-24-2024 Sex Female (finding) [facility] Start: 09-03-2024 Tobacco smoking status NHIS Smoker (finding) [facility] Start: 09-23-2024 Tobacco smoking status ILIS Unknown if ever smoked [facility] NEGATED: Highlighted row [facility] Goals Date Patient Goal Desired Activity /State Functional Status Date Assessment Result Facility 09-06-2024 Functional status Patient at Baseline [facility] Work Phone: Mental Status Date Assessment Result Facility 09-06-2024 Cognitive function Cognitive Sta tus Patient at Baseline [facility] Work Phone: Clinical Notes 02-21-2023 to 09-06-2024 Note Date & Type Note Facility 09-06-2024 Discharge summary Note Date/Time September 06, 2024 6:53am [facility] [address] [place] [address] Discharge Summary Signed Patient: Mone Arriaza MR#: [id number] : 2000 Acct:[id number] Age/Sex: 24 / F Adm Date: 5 Loc: 1S Room: [address] [place] [address]: Jair Rosenberg MD Copies to: MD Deidre Phillips, RENOVATOR MACHINE OPERATOR, CABLE STRANDER~ Providers Date of Discharge: 03/02/25 Discharging Provider: Jair Rosenberg Primary Care Provider: Deidre Murillo Discharge Diagnosis (1) Depression: (2) Suicidal ideation: (3) Bipolar 1 disorder: Final Diagnosis Final Discharge Diagnosis: MDD Summary Hospital Course Hospital course: Ms. Arriaza is a 24 year old female who was admitted to the unit due to anxiety, depression and SI. She reports that she works at [employer] and this has been very stressful lately due to her entering a controlling relationship with a man who works with her. She has had increased stressors from roommates and financial reasons lately. She works midnights and finds it difficult to finda sleep schedule, she is often awake for 36-48 hrs and sleeping for only 5 hrs during that timeframe. She lives with a friend and a cousin that do not want topay any of the bills at the rented mobile home. She has student loans, a car payment, and repair bills to pay for and feels overwhelmed. Patient states that all of this just built up and she had access to a gun in the house and had thoughts of using it to hurt herself. Patient was personally seen by me on the day of the encounter. I reviewed the history and performed the huitron elements of the assessment. I formulated the planof care and confirmed this with the medical student as noted below Patient stated that she had stopped taking her medications for 1.5 years and hasbeen experiencing some depression and manic episodes. She reports that she has ahistory of bipolar, depression, anxiety and PTSD and has not been on medication for over a year due to loss of her provider. She reports anxiety and depression both rated an 8/10. She denies AVH and SI/HI at this time. Her goals for hospitalization are to get back on medication and develop some coping skills. Throughout the interview, the patient is lying in bed and is calm and cooperative. She has been overwhelmed and wanted to shoot her self with a gun. She works at [employer] stating I need to get a way from the people. The patient is currently functioning at her baseline. She was started on Lamictal and Abilify. Her brother confirmed that guns were secured and patient has no longer access to them. She is doing fairly well. She reports improved mood and appetite, improved ability to enjoy certain activities, reduction of feelings of worthlessness or guilt, and improved focus and concentration. She continues to struggle with anxiety occasionally. She was out in the common areasocializing and communicating with peers appropriately. As we are discussing discharge plans, she described her current mental health as stable. She denied any suicidal thoughts. She was looking forward to returning home and following with outpatient services. She described her family members as supportive and feels safe at home. She denied any depression, suicidality, hallucinations, or zhen. She is tolerating her medications without difficulty. She denied current SI/HI and verbalized the intent to notify staff if she has such thoughts. She denied any suicidal or self-injurious behaviors. I did talk with her about the importance of medication compliance as she believes that medications made a gooddifference. Sleep and appetite are ok. Patient has continued to attend individual and group therapy and found them useful to understand their clinical symptoms well and also developed coping skills that were individualized for them and patient feels comfortable applying them when they return home. Appearance: dressed casually Mental Status: mental status grossly normal Mood: Euthymic mood Affect: Normal affect Speech and Movement: speech and movement normal and speech clear Attitude: cooperative Thought Process: normal Thought Content: Denied hallucinations, no homicidal thoughts and no suicidality Insight: fair Judgment: fair Impulse control: fair Time spent discussing smoking cessation with patient: more than 10 minutes Condition Condition at Discharge: Stable Status at Discharge Functional status at discharge: independent ambulation Time Spent with Patient Time spent providing/coordinating discharge services (# min): 82 Discharge Plan Discharge Plan Patient Disposition: Home Activity: No Activity Restriction Diet: Regular Additional Instructions: Important Contact Information You can call [facility] at [phone] any time day or night if you have emergent questions or question regarding discharge instructions. If at any time you are feeling an increase inyour psychiatric symptoms, call your physician or behavioral healthcare provider. If any time you have thoughts of harming yourself or others contact one of the following: Call (available 28/01) Crisis Text Line (available 28/01) text 4HOPE to [phone] [facility] (available 8 a.m. Midnight) call [phone] ([phone]) Instructions: Know your Meds Stand Alone Forms: Work/School Release Form Prescriptions: New lamotrigine 25 mg Tablet 25 mg PO DAILY 15 Days Qty: 15 3RF ergocalciferol (vitamin D2) 1,250 mcg (50,000 unit) Capsule 1,250 mcg PO Gutiérrez@0900 30 Days Qty: 5 0RF aripiprazole 2 mg Tablet 2 mg PO QHS 15 Days Qty: 15 2RF Follow Up: [facility] [Outside] (In order to return for mental health follow-up, you will need to contact the office and sign up for a no-show class. Once this is complete, the office will be able to get you re-established. ) [facility] [Outside] (facesheet sent- ok to schedule on discharge. ) Deidre Murillo APRN, FLYER REPAIRER-C [Primary Care Provider] - (Call for any medical needs) Exam Physical Exam Vital Signs: Temp Pulse Resp BP Pulse Ox O2 Del Method 98 F 68 16 124/83 98 Room Air 09/05/24 19:59 09/05/24 19:59 09/05/24 19:59 09/05/24 19:59 09/05/24 19:59 09/05/24 19:59 Documented By: Jair Rosenberg MD [id number] Signed By: <Electronically signed by Jair Rosenberg MD> 09/06/24 0653 [facility] Work Phone: 1(298) 264-314703-02-2025 [place] [address] Discharge Summary Signed Patient: Mone Arriaza MR#: [id number] : 2000 Acct:[id number] Age/Sex: 24 / F Adm Date: 5 Loc: 1S Room: [address] [place] [address]: Jair Rosenberg MD Copies to: MD Deidre Phillips APRN, CABLE STRANDER~ Providers Date of Discharge: 09/06/24 Discharging Provider: Jair Rosenberg Primary Care Provider: Deidre Murillo Discharge Diagnosis (1) Depression: (2) Suicidal ideation: (3) Bipolar 1 disorder: Final Diagnosis Final Discharge Diagnosis: MDD Summary Hospital Course Hospital course: Ms. Arriaza is a 24 year old female who was admitted to the unit due to anxiety, depression and SI. She reports that she works at [employer] and this has been very stressful lately due to her entering a controlling relationship with a man who works with her. She has had increased stressorsfrom roommates and financial reasons lately. She works midnights and finds it difficult to finda sleep schedule, she is often awake for 36-48 hrs and sleeping for only 5 hrs during that timeframe. She lives with a friend and a cousin that do not want topay any of the bills at the rented mobile home. She has student loans, a car payment, and repair bills to pay for and feels overwhelmed. Patient states that all of this just built up and she had access to a gun in the house and had thoughts of using it to hurt herself. Patient was personally seen by me on the day of the encounter. I reviewed the history and performedthe huitron elements of the assessment. I formulated the planof care and confirmed this with the medical student as noted below Patient stated that she had stopped taking her medications for 1.5 years and hasbeen experiencing some depression and manic episodes. She reports that she has ahistory of bipolar, depression, anxietyand PTSD and has not been on medication for over a year due to loss of her provider. She reports anxiety and depression both rated an 8/10. She denies AVH and SI/HI at this time. Her goals for hospitalization are to get back on medication and develop some coping skills. Throughout the interview, the patient is lying in bed and is calm and cooperative. She has been overwhelmed and wanted to shoot her self with a gun. She works at [employer] stating I need to get a way from the people. The patient is currently functioning at her baseline. She was started on Lamictal and Abilify. Her brother confirmed that guns were secured and patient has no longer access to them. She is doing fairly well. She reports improved mood and appetite, improved ability to enjoy certain activities, reduction of feelings of worthlessness or guilt, and improved focus and concentration. She continues to struggle with anxiety occasionally. She was out in the common areasocializing and communicating with peers appropriately. As we are discussing discharge plans, she described her current mental health as stable. She denied any suicidal thoughts. She was looking forward to returning home and following with outpatient services. She described her family members as supportive and feels safe at home. She denied any depression, suicidality, hallucinations, or zhen. She is tolerating her medications without difficulty. She denied current SI/HI and verbalized the intent to notify staff if she has such thoughts. She denied any suicidal or self-injurious behaviors.I did talk with her about the importance of medication compliance as she believes that medications made a gooddifference. Sleep and appetite are ok. Patient has continued to attend individual and group therapy and found them useful to understand their clinical symptoms well and also developed coping skills that were individualized for them and patient feels comfortable applying them when they return home. Appearance: dressed casually Mental Status: mental status grossly normal Mood: Euthymic mood Affect: Normal affect Speech and Movement: speech and movement normal and speech clear Attitude: cooperative Thought Process: normal Thought Content: Denied hallucinations, no homicidal thoughts and no suicidality Insight: fair Judgment: fair Impulse control: fair Time spent discussing smoking cessation with patient: more than 10 minutes Condition Condition at Discharge: Stable Status at Discharge Functional status at discharge: independent ambulation Time Spent with Patient Time spent providing/coordinating discharge services (# min): 82 Discharge Plan Discharge Plan Patient Disposition: Home Activity: No Activity Restriction Diet: Regular Additional Instructions: Important Contact Information You can call [facility] at [phone] any timeday or night if you have emergent questions or question regarding discharge instructions. If at anytime you are feeling an increase inyour psychiatric symptoms, call your physician or behavioral healthcare provider. If any time you have thoughts of harming yourself or others contact one of the following: Call 88 (available 28/01) Crisis Text Line (available 28/01) text 4HOPE to [phone] [facility] Hope Line (available 8 a.m. Midnight) call [phone] ([phone]) Instructions: Know your Meds Stand Alone Forms: Work/School Release Form Prescriptions: New lamotrigine 25 mg Tablet 25 mg PO DAILY 15 Days Qty: 15 3RF ergocalciferol (vitamin D2) 1,250 mcg (50,000 unit) Capsule 1,250 mcg PO Gutiérrez@0900 30 Days Qty: 5 0RF aripiprazole 2 mg Tablet 2 mg PO QHS 15 Days Qty: 15 2RF Follow Up: [facility] [Outside] (In order to return for mental health follow-up, you will need to contact the office and sign up for a no-show class. Once this is complete, the office willbe able to get you re-established. ) [facility] [Outside] (facesheet sent- ok to schedule on discharge. ) Deidre Murillo APRN, FLYER REPAIRER-C [Primary Care Provider] - (Call for any medical needs) Exam Physical Exam Vital Signs: Temp Pulse Resp BP Pulse Ox O2 Del Method 98 F 68 16 124/83 98 Room Air 09/05/24 19:59 09/05/24 19:59 09/05/24 19:59 09/05/24 19:59 09/05/24 19:59 09/05/24 19:59 Documented By: Jair Rosenberg MD [id number] Signed By: 09/06/24 0653 [facility]03-01-2025 Progress note Author Jair nielsen [facility] Note Date/Time September 05, 2024 6:45 am [facility] [address] [place] [address] Psychiatry Progress Note Signed Patient: Mone Arriaza MR#: [id number] : 2000 Acct:[id number] Age/Sex: 24 / F Adm Date: 5 Loc: Room: [address] [place] [address] Type : ADM IN Attending Dr: Jair Rosenberg MD Copies to: ~ Date of Service: 09/05/2024 Subjective Subjective Narrative: Ms. Arriaza said she had a good day yesterday and enjoyed attending groups. She is building better coping skills. She has had increased stressors from roommatesand financial reasons lately. She said her cousin owns a gun and she will ask him to get rid of it. She lives with a friend and a cousin that do not want to pay any of the bills at the rented mobile home. She has student loans, a car payment, and repair bills to pay for and feels overwhelmed. She said her brothervisited her and the visit went well. She denies AVH and SI/HI at this time. Her goals for hospitalization are to get back on medication and develop some coping skills. She is tolerating Abilify and Lamictal. Mental Status: grossly normal Speech and Movement: speech and movement are normal and speech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 diff, TSH, ESR, CRP, fecal calprotectin HIV ab, Celiac panel, fecal elastase and stool infectious workup -Will arrange for CT enterography -Will determine the need for second look colonoscopy after getting this workup [facility] Work Phone: 1(415) 701-867306-26-2024 Evaluation note* Author [facility] Authored March 02, 2024 9: 56am 23-year-old female referred to the GI clinic for evaluation of hematochezia. +chronic diarrhea for almost 1 year. An episode of lower abdominal pain 2 months ago where a CT was done and showed colitis as per patient. Colonoscopy was done at [facility] and it was unremarkable as per patient. Another episode of lower abdominal pain however this time was associated with having 2 episodes of black stool mixed with red blood. Patient was referred to the GI clinic afterwards -Will obtain previous CT report and colonoscopy report. - Will get Labs including CBC with diff, TSH, ESR, CRP, fecal calprotectin HIV ab, Celiac panel, fecal elastase and stool infectious workup -Will arrange for CT enterography -Will determine the need for second look colonoscopy after getting this workup [facility] Work Phone: 1(991) 827-138408-17-2023 Evaluation note* Encounter Date Diagnosis Assessment Notes Treatment Notes Treatment Clinical Notes Feb, Severe obesity (BMI >= 40) (ICD-10 - E66.) Consultation date 02-21-2023, weight (pounds): 332.5Plan is to take a weight centric approach to patient care in the treatment of excess adiposity and patient's weight related comorbidities.-Discuss ed the impact of excess adiposity on overall health and increased risk of associated health conditions-Discussed treatment options including lifestyle interventions, such as calorie reduction and physical activity, and use of medications as an adjunct to amplify adherence to healthy behavior change-Discussed benefits, risks and side effects of medication. After informed discussion, patient would like to proceedOrders:-Initiat e Wegovy 0.25 mg once weekly and titrate up as tolerated-Follow up in clinic in 4 to 6 weeksThis note was created with voice recognition software. Please excuse errors in utilities estimator and drafter. Feb, Dietary surveillance and counseling (ICD-10 - Z71.3) Discussed in detail high-protein, high-fiber, low-fat nutrition plan favoring calorie deficit and lean tissue mass preservation.-Lean protein sources at each meal supplemented with nutrient rich, low calorie density carbohydrates-Focus on consuming calories earlier in the day versus later; breakfast and lunch should be largest meals-Evening meal should be high in protein and low in carbohydrate to maximize lipolysis overnight-Aim for a minimum of 30 g of protein per meal with breakfast, lunch and dinner with total daily intake reaching at least 100 g-If needed, supplement with whey protein powder or premade protein drink low in carbohydrate and low in fat-If hungry between meals, consider protein snack low in carbohydrate and low in fat Actionable goals: Avoid sugar sweetened beverages, consider premade protein drink for breakfast, cauliflower rice substitute, zucchini noodles substitute Feb, Exercise counseling (ICD-10 - Z71.89) Absolute HGS at time of consultation (pounds): 69.8Discussed in detail exercise interventions to promote lean tissue mass preservation during calorie restriction.-In addition to regularly scheduled endurance and resistance exercise, perform bouts of resistance exercise prior to meals using body weight, resistance bands or dumbbells/weights-Foll owing meals, consider aerobic exercise, such as brisk walking, to improve blood sugars and to mitigate hyperinsulinemia Feb, Essential hypertension (ICD-10 - I10) Feb, PCOS (polycystic ovarian syndrome) (ICD-10 - E28.2) Feb, Dyslipidemia (ICD-10 - E78.5) Feb, Snoring (ICD-10 - R06.83) High risk for OSARecommend sleep study [place] [employer] Other Evaluation noteNo InformationNortChan [facility] [employer] Other Evaluation noteNo assessment information available [facility] Work Phone: Evaluation note* Diagnosis Women's annual routine gynecological examination- Primary Cervical smear, as part of routine gynecological examination Screening for malignant neoplasm of the cervix Standardized adult depression screening tool completed IUD check up History of ovarian cyst Personal history of other genital system and obstetric disorders History of abnormal cervical Pap smear documented in this encounter SchoolControl SystemHistory general Narrative - Reported* Type Description Date Medical History PCOS Medical History Hypertension Medical History Eczema Medical History Depression Medical History Anxiety Surgical History [place] teeth extraction 2013 Hospitalization History See above [facility] Other InstructionsNot on filedocumented in this encounter [employer]Control System Summary Purpose Family History No Family History Records Found Relationship Condition Age at Onset Recorded Date/T nick Not Specified Hypertension Unknown Family history of mental disorder Unknown Anxiety and depression Unknown Relationship Condition Age at Onset Recorded Date/T nick mother Hypertension Unknown Family history of mental disorder Unknown Anxiety and depression Unknown Advance Directives No Advanced Directives Records Found Advance Directive Response Recorded Date/ Time Advance Directives No February 20, 2023 11:32am Advance Directive Response Recorded Date/ Time Advance Directives No February 20, 2023 12:32pm Chief Complaint and Reason for Visit Chief Complaint LLQ pain Chief Complaint Refer L Chidi, hemat ochezia, bowel wall thickening Chief Complaint Refer L Chidi, hemat ochezia, bowel wall thickening R10.9 K62.5 R19.7 Chief Complaint Admit Date mental eval September 03, 2024 10:12am Chief Complaint Admit Date mental eval September 03, 2024 10:12am mental eval September 04, 2024 6:00am Reason for Visit Admit Date Bipolar 1 disorder September 03, 2024 10:12am Depression September 03, 2024 10:12am Suicidal ideation September 03, 2024 10:12am Chief Complaint Admit Date mental eval September 03, 2024 10:12am mental eval September 04, 2024 6:00am Sore throat September 23, 2024 2:2 1pm Reason for Visit Admit Date Bipolar 1 disorder September 03, 2024 10:12am Depression September 03, 2024 10:12am Suicidal ideation September 03, 2024 10:12am Sore throat September 23, 2024 2:2 1pm Reason for Visit Admit Date Bipolar 1 disorder September 03, 2024 10:12am Depression September 03, 2024 10:12am Suicidal ideation September 03, 2024 10:12am Acute pharyngitis September 23, 2024 2:2 1pm Additional Source Comments INFORMATION SOURCE (unrecogn ized section and content) DATE CREATED AUTHOR 12/30/2017 [facility] DATE CREATED AUTHOR AUTHOR'S ORGANIZ ATION 07/26/2024 [facility] DATE CREATED AUTHOR AUTHOR'S ORGANIZ ATION [facility]/06/2024 [facility] DATE CREATED AUTHOR AUTHOR'S ORGANIZ ATION 09/27/2024 [facility] DATE CREATED AUTHOR AUTHOR'S ORGANIZ ATION 12/13/2024 [facility] REASON FOR VISIT (unrecogniz ed section and content) Reason Comments Gynecologic Exam Pt is here for rc hernandez exam. Care Teams (unrecognized sec tion and content) Team Status: Active Member Role Status Dates Deidre Murillo APRN FLYER REPAIRER-C Primary Care Provider Active Team Status: Inactive Member Role Status Dates Deidre Murillo APRN FLYER REPAIRER-C Primary Care Provider Active Start: September 03, 2024 End: September 06, 2024 Nandini Arroyo MD Emergency Provider Active Start: September 03, 2024 End: September 06, 2024 Jair Rosenberg MD Admit Provide r, Attending Provider Active Start: September 03, 2024 End: September 06, 2024 Team Status: Active Member Role Status Dates Deidre Murillo APRN FLYER REPAIRER-C Primary Care Provider Active Start: September 04, 2024 Nandini Arroyo MD Emergency Provider Active Start: September 04, 2024 Jair Rosenberg MD Admit Provide r, Attending Provider, Other Provider Active Start: September 04, 2024 Team Status: Active Member Role Status Dates Deidre Murillo APRN FLYER REPAIRER-C Primary Care Provider Active Start: September 03, 2024 Nandini Arroyo MD Emergency Provider Active Start: September 03, 2024 Jair [address] MD Admit [facility] r, Attending Provider Active Start: September 03, 2024 Team Status: Inactive Member Role Status Dates Deidre Murillo APRN FLYER REPAIRER-C Primary Care Provider Active Start: August 08, 2023 End: August 08, 2023 Kobe Alcantara MD Attending Provider Active Start: August 08, 2023 End: August 08, 2023 Team Status: Inactive Member Role Status Dates Deidre Murillo APRN FLYER REPAIRER-C Primary Care Provider Active Start: March 02, 2024 End: March 02, 2024 Noris May MD Attending Provider Active Start: March 02, 2024 End: March 02, 2024 Team Status: Inactive Member Role Status Dates Deidre Murillo APRN FLYER REPAIRER-C Primary Care Provider Active Start: March 18, 2024 End: March 18, 2024 Noris May MD Attending Provider Active Start: March 18, 2024 End: March 18, 2024 Welder Railcar Mechanic Relationship Specialty Start Date End Date Deidre Murillo APRN-[facility] PCP - General Family Medicine 12/26/18 Team Status: Inactive Member Role Status Dates Deidre Murillo APRN FLYER REPAIRER-C Primary Care Provider Active Start: September 23, 2024 End: September 23, 2024 Eliza Johnson APRN Attending Provider Active Start: September 23, 2024 End: September 23, 2024 Team Status: Inactive Member Role Status Dates Eliza Johnson APRN Attending Provider Active Start: September 23, 2024 End: September 23, 2024 Goals (unrecognized section and content) Goals may be documented in a n alternate section FOR RECORDS PERTAINING TO PATIENTS WHO ARE OR HAVE BEEN ENROLLED IN A CHEMICAL DEPENDENCY/SUBSTANCEABUSE PROGRAM, SOME INFORMATION MAY BE OMITTED. This clinical summary was aggregated from multiple sources. Caution should be exercised in using it in the provision of clinical care. This summary normalizes information from multiple sources, and as a consequence, information in this document may materially change the coding, format and clinical context of patient data. In addition, data may be omitted in some cases. CLINICAL DECISIONS SHOULD BE BASED ON THE PRIMARY CLINICAL RECORDS. [facility]. provides no warranty or guarantee of the accuracy or completeness of information in this document.
--- OUTSIDE RECORDS SUMMARY | 2025-01-23 03:55 | XMS_ITS | Encounter Summary ---
Author Organization [employer] Address [id number] [address] [place] [address] Care Team Providers Care Pipeline Integrity Engineer Name Role Phone Neema Ortiz MARKETING PROGRAM COORDINATOR-GEOTHERMAL TECHNICIAN Primary Care Provi marilyn Encounter Details Date Type Department Care Team (Late st Contact Info) Description 03/13/2023 [facility]phone [facility] [address] [facility] [address] [place] [address] Lucie Painting Social History Tobacco Use Types Packs/Day Years Used Date Smoking Tobacco: Never Smokeless Tobacco: Never Alcohol Use Standard Drinks/Week Comments Yes 0 (1 standard drink = 0.6 oz pur e alcohol) social Childcare Answer Date Recorded Childcare Unknown 12/17/2018 Employment Answer Date Recorded Employment Unknown 12/17/2018 Purpose - Life Answer Date Recorded Purpose and direction in life Unknown Comments Unknown Sex and Gender Information Value Date Recorded Sex Assigned at Not on file Legal Sex Female 11:55 AM EDT Gender Identity Not on file Sexual Orientation Not on file documented as of this encounter Miscellaneous Notes * Telephone Encounter - Lucie Painting - 03/13/2023 8:59 AM EDT Called patient to schedule DIESEL ENGINE FITTER sleep referral. Mailbox is full, unable to leave a vm. Sent [employer] message. * Telephone Encounter - Lucie Painting - 03/13/2023 8:59 AM EDT Patient is scheduled on 04/03/23 already with JK. documented in this encounter Plan of Treatment Not on file documented as of this encounter Visit Diagnoses Not on filedocumented in this encounter Care Teams Pipeline Integrity Engineer Relationship Specialty Start Date End Date Neema Ortiz, MARKETING PROGRAM COORDINATOR-GEOTHERMAL TECHNICIAN [address] [place] [address] PCP - General Obstetrics & Gynecology 07/29/24 documented as of this encounter
--- OUTSIDE RECORDS SUMMARY | 2025-01-23 03:55 | XMS_ITS | Clinical Summary ---
Author Organization [employer] Address [id number] [address] [place] [address] Care Team Providers Care Whiting Can Worker Name Role Phone Neema Ortiz FITTING SUPERVISOR-DINING ROOM SERVER Primary Care Provi marilyn Allergies No known active allergies Medications levonorgestreL (MIRENA) 21 mcg/24hr (up to 8 yrs) 52 mg IUD 1 each by intrauterine route once. Active sertraline (ZOLOFT) 25 mg tablet 1 tablet (25 mg total). 3 Active lamoTRIgine (LaMICtal) 100 mg tablet Daily, 0 Refill(s) 3 Active busPIRone (BUSPAR) 10 mg tablet BID, 0 Refill(s) 3 Active ARIPiprazole (ABILIFY) 5 mg tablet 1 tablet (5 mg total). 3 Active Active Problems Problem Noted Date Diagnosed Date Acne 07/23/2024 Anxiety 07/23/2024 Atopic dermatitis 07/23/2024 Blood pressure elevated without history of HTN 0 07/23/2024 Bowel wall thickening 07/23/2024 Depression with anxiety 07/23/2024 Ovarian cyst 07/23/2024 Family History Medical History Relation Name Comments Sleep apnea Father Anxiety disorder Mother Asthma Mother Bipolar disorder Mother Hypertension Mother Breast cancer Paternal Grandmother Relation Name Status Comments Father Mother Paternal Grandmother Social History Tobacco Use Types Packs/Day Years Used Date Smoking Tobacco: Never Smokeless Tobacco: Never Alcohol Use Standard Drinks/Week Comments Yes 0 (1 standard drink = 0.6 oz pur e alcohol) social PHQ-2 Answer Date Recorded Total Score 10 07/23/2024 Childcare Answer Date Recorded Childcare Unknown 12/17/2018 Employment Answer Date Recorded Employment Unknown 12/17/2018 Purpose - Life Answer Date Recorded Purpose and direction in life Unknown Comments No Sex and Gender Information Value Date Recorded Sex Assigned at Not on file Legal Sex Female 11:55 AM EDT Gender Identity Not on file Sexual Orientation Not on file Last Filed Vital Signs Vital Sign Reading Time Taken Comments Blood Pressure 122/72 07/23/2024 9:29 AM EST Pulse 71 02/09/2019 9:35 AM EDT Temperature - - Respiratory Rate 14 02/09/2019 9:35 AM EDT Oxygen Saturation 97% 02/09/2019 9:35 AM EDT Inhaled Oxygen Concentration - - Weight 138.8 kg (306 lb) 07/23/2024 9:29 AM EST Height 175.3 cm (5' 9 ) 07/23/2024 9:29 AM EST Body Mass Index 45.19 07/23/2024 9:29 AM EST Plan of Treatment Health Maintenance Due Date Last Done Comments Adult BMI Follow Up Plan 2016 DTaP,Tdap and Td Vaccines (7 - Td or Tdap) 10/16/2020 10/16/2010, 02/18/2004, 10/30/1999, Additional history exists COVID-19 Vaccine (2023-2 5 season) 2024 06/24/2021, 11/22/2020, 10/28/2020 Influenza Vaccine 03/08/2025 Adult BMI Screening 07/23/2025 07/23/2024 Depression Screening 07/23/2025 07/23/2024 Tobacco Screening 07/23/2025 07/23/2024 Pap Smear 07/23/2027 07/23/2024, 07/23/2024 Medical Devices Not on file Procedures Procedure Name Priority Date/Time Associated Diagnosis Comments HIGH RISK HPV W/EARNEST Routine 07/23/2024 3:38 AM EST Encounter for gynecological examination (general) (routine) without abnormal findings from Last 3 Months or Most Recently Relevant to Health Maintenance Results * (ABNORMAL) High risk HPV w/earnest (07/23/2024 3:38 AM EST) Hpv specimen type ThinPrep 07/24/2024 3:38 AM EST [facility] Hpv 16 Negative Negative^ Negative 07/27/2024 1:27 PM EST [facility] Hpv 18 Negative Negative^ Negative 07/27/2024 1:27 PM EST [facility] Other high risk hpv Positive(A) Negative^ Negative 07/27/2024 1:27 PM EST [facility] Comment: For the DNA of any or combination of the following HPV types: 31,33,35,45, 52,56,58,59,66 and 68. THINP 07/23/2024 3:38 AM EST 07/24/2024 3:39 AM EST us Neema Ortiz FITTING SUPERVISOR-DINING ROOM SERVER LAB BLOOD ORDERABLE S Final Result [facility] [address] [facility], [place] [address] [facility] [address] [place] [address], [address] [place] [address] from Last 3 Months or Most Recently Relevant to Health Maintenance Insurance [employer] Care Teams Whiting Can Worker Relationship Specialty Start Date End Date Neema Ortiz, FITTING SUPERVISOR-DINING ROOM SERVER [address] [place] [address] PCP - General Obstetrics & Gynecology 07/29/24
--- NOTE | 2025-01-23 04:05 | XR_ITS ---
The [address] [address] Patient Name: ELIUD NUNEZ MRN: [id number] date: 2000 Sex: F Assigned Patient Location: ED.MAIN Current Patient Location: Accession/Order Number: [id number] Exam Date: 01/23/2025 08:58 Report Date: 01/23/2025 09:01 At the request of: JENNIFER CONWAY Procedure: XR foot LT min 3V Left FOOT - 3 views CLINICAL HISTORY: toe pain COMPARISON: None FINDINGS: No fractures. No dislocation.. Joint spaces preserved. Soft tissues unremarkable. No radiopaque foreign body. XR/XR foot LT min 3V IMPRESSION: NO ACUTE OSSEOUS FINDINGS. Impression dictated by: Olvin Galvin M.D. 01/23/2025 9:01 AM Dictation Location: [place] [address] Electronically authenticated by: [id number] Y Date: 01/23/2025 09:01
--- NOTE | 2025-01-23 05:10 | ED_ITS ---
HPI HPI - Extremity Injury (Lower) General Chief Complaint: Extremity Injury, Lower Stated Complaint: CABINET FROM 3 FT DROP ON BIG TOE LEFT FOOT Time Seen by Provider: 01/23/25 04:06 Source: patient Mode of arrival: walk-in Limitations: no limitations History of Present Illness HPI Narrative: cc - left foot pain around 8pm last night the pt dropped a cabinet onto her left foot. She comaplns of pain to the left great toe and mid left foot. Nothing taken for pain. Related Data Home Medications ?Medication ?Instructions ?Recorded ?Confirmed aripiprazole 10 mg tablet mg 01/23/25 buspirone 10 mg tablet mg 01/23/25 hydroxyzine pamoate 25 mg capsule mg 01/23/25 lamotrigine 100 mg tablet mg 01/23/25 Allergies Allergy/AdvReac Type Severity Reaction Status Date / Time No Known Drug Allergies Allergy Verified 01/23/25 03:50 Opioid HPI Opioid Management Most Recent Pain and Opioid Data: Last Pain Scale 9 Today, 04:13 PFSH PFSH Social History Smoking status: Never smoker Little interest or pleasure in doing things: not at all Feeling down, depressed, or hopeless: not at all Exam Narrative Exam Narrative: Nurses notes and vital signs reviewed and patient is not hypoxic. afebrile General: Well-appearing and in no apparent distress. Skin: Warm, dry, no pallor noted. Cardiovascular: Normal peripheral perfusion. Respiratory: No accessory muscle use or respiratory distress. Musculoskeletal: Tenderness to the left great toe and left midfoot. No swelling or deformity. There is a small amount of bruising starting. Toes of the left foot and left ankle are with normal ROM, no calf or popliteal tenderness, no lower extremity edema/swelling Neurological: A&O x4. No cranial nerve dysfunction observed. No truncal ataxia. Moves all extremities. Sensation intact. Psychiatric: Cooperative and interactive. Normal mood and affect. Constitutional Vital Signs, click to edit/add: Last Vital Signs Temp 98.5 F 01/23/25 03:45 Pulse 92 H 01/23/25 03:45 Resp 18 01/23/25 03:45 BP 154/86 H 01/23/25 03:45 Pulse Ox 100 01/23/25 03:45 O2 Del Method Room Air 01/23/25 03:45 Course Vital Signs Vital signs: Vital Signs Temperature 98.5 F 01/23/25 03:45 Pulse Rate 92 H 01/23/25 03:45 Respiratory Rate 18 01/23/25 03:45 Blood Pressure 154/86 H 01/23/25 03:45 Pulse Oximetry 100 01/23/25 03:45 Oxygen Delivery Method Room Air 01/23/25 03:45 Temperature 98.5 F 01/23/25 03:45 Pulse Rate 92 H 01/23/25 03:45 Respiratory Rate 18 01/23/25 03:45 Blood Pressure 154/86 H 01/23/25 03:45 Pulse Oximetry 100 01/23/25 03:45 Oxygen Delivery Method Room Air 01/23/25 03:45 MDM - Extremity Injury (Lower) MDM Narrative Medical decision making narrative: X-rays of the left foot including the great toe did not show acute fracture. Patient informed of results and given reassurance. She was recommended to take Tylenol Motrin for pain. She requested a work excuse, which was given. Imaging Data xr foot: My impression: No acute fracture or dislocation noted Discharge Plan Discharge Chief Complaint: Extremity Injury, Lower Clinical Impression: Contusion of foot, left Patient Disposition: Home, Self-Care Time of Disposition Decision: 05:10 Prescriptions / Home Meds: No Action buspirone 10 mg tablet lamotrigine 100 mg tablet hydroxyzine pamoate 25 mg capsule aripiprazole 10 mg tablet Print Language: Turkmen Instructions: Foot Contusion (ED) Referrals: ANNA JIMENEZ [Primary Care Provider, Unknown] - 1 week
== END 2025-01-23 05:17 | disposition home or self-care (01) ==
PROVIDERS: Emergency Provider Emergency Medicine
DX: S90.32XA Contusion of left foot, initial encounter (principal); W20.8XXA Other cause of strike by thrown, projected or falling object, initial encounter
CPT/HCPCS: 73630; 99283

== ENCOUNTER 2025-02-19 01:55 | Emergency (ER) | payer OTHER, SELFPAY ==
--- OUTSIDE RECORDS SUMMARY | 2025-02-19 02:02 | XMS_ITS | Clinical Summary ---
Author Organization [facility] Address [address] [facility] [address] [facility], [address] [place] [address] Care Team Providers Care Medical Physicist Name Role Phone Unavailable Primary Care Provider Unavailabl e Allergies No known active allergies Social History Tobacco Use Types Packs/Day Years Used Date Smoking Tobacco: Never Assessed Comments Unknown Sex and Gender Information Value Date Recorded Sex Assigned at Not on file Legal Sex Female 12:28 AM EST Gender Identity Not on file Sexual Orientation Not on file Last Filed Vital Signs Vital Sign Reading Time Taken Comments Blood Pressure 141/73 07/30/2017 1:18 AM EST Pulse 90 07/30/2017 1:18 AM EST Temperature 36.7 C (98.1 F) 07/30/2017 12:43 AM EST Respiratory Rate 16 07/30/2017 12:43 AM EST Oxygen Saturation 99% 07/30/2017 1:18 AM EST Inhaled Oxygen Concentration - - Weight 99.8 kg (220 lb) 07/30/2017 12:43 AM EST Height 175.3 cm (5' 9 ) 07/30/2017 12:43 AM EST Body Mass Index 32.49 07/30/2017 12:43 AM EST Plan of Treatment Not on file
--- OUTSIDE RECORDS SUMMARY | 2025-02-19 02:02 | XMS_ITS | Clinical Summary ---
Author Organization [employer] Address [facility] [id number] [address] [place] [address] Care Team Providers Care Director Business Management Name Role Phone Neema Ortiz WINDOWS SECURITY ENGINEER-MANAGER ENTERPRISE Primary Care Provi marilyn Allergies No known [...] specimen type ThinPrep 07/24/2024 3:38 AM EST [facility] Hpv 16 Negative Negative^ Negative 07/27/2024 1:27 PM EST [facility] Hpv 18 Negative Negative^ Negative 07/27/2024 1:27 PM EST [facility] Other high risk hpv Positive(A) Negative^ Negative 07/27/2024 1:27 PM EST [facility] Comment: For the DNA of any or combination of the following HPV types: 31,33,35,45, 52,56,58,59,66 and 68. THINP 07/23/2024 3:38 AM EST 07/24/2024 3:39 AM EST us Neema Ortiz WINDOWS SECURITY ENGINEER-MANAGER ENTERPRISE LAB BLOOD ORDERABLE S Final Result [facility] [address] [facility] [place] [address] [facility] [address] [place] [address], [address] [place] [address] from Last 3 Months or Most Recently Relevant to Health Maintenance Insurance [employer] Care Teams Director Business Management Relationship Specialty Start Date End Date Neema Ortiz, WINDOWS SECURITY ENGINEER-MANAGER ENTERPRISE [address] [place] [address] PCP - General Obstetrics & Gynecology 07/29/24
--- OUTSIDE RECORDS SUMMARY | 2025-02-19 02:02 | XMS_ITS | Encounter Summary ---
Author Organization [employer] Address [id number] [address] [place] [address] Care Team Providers Care Oil Well Pumper Name Role Phone Neema Ortiz NUISANCE ANIMAL DAMAGE CONTROL AGENT-RENEWABLE ENERGY ENGINEER Primary Care Provi marilyn Encounter Details Date Type Department Care Team (Late st Contact Info) Description 03/13/2023 [facility]phone [facility] [address] [place] [address] Lucie Painting Social History Tobacco [...] 8:59 AM EDT Called patient to schedule MANAGER RESEARCH AND DEVELOPMENT sleep referral. Mailbox is full, unable to leave a vm. Sent Bringme message. * Telephone Encounter - Lucie Painting - 03/13/2023 8:59 AM EDT Patient is scheduled on 04/03/23 already with JK. documented in this encounter Plan of Treatment Not on file documented as of this encounter Visit Diagnoses Not on filedocumented in this encounter Care Teams Oil Well Pumper Relationship Specialty Start Date End Date Neema Ortiz, NUISANCE ANIMAL DAMAGE CONTROL AGENT-RENEWABLE ENERGY ENGINEER [address] [place] [address] PCP - General Obstetrics & Gynecology 07/29/24 documented as of this encounter
--- OUTSIDE RECORDS SUMMARY | 2025-02-19 02:03 | XMS_ITS | CCD ---
Author Organization [facility] Care Team Providers Care [place] Finisher Name Role Phone RICARDOMEHDI JUAREZ Unavailable Unavailable PROVIDER, UNKNOWN Unavailable Unavailable No, PCP Unavailable Unavailable German Flores Unavailable Chidi, JEAN Padilla Primary Care Provider [phone] MD Kobe Alcantara Attending Provider [phone] Chidi, RUBBER STAMP ASSEMBLER Deidre A Primary Care Provider [phone] MD Lalo Imskyler Attending Provider Chidi RUBBER STAMP ASSEMBLER-Deidre DOMINGUEZ Primary Care Provider [phone] NEEMA ORTIZ Attending Unavailable CHIDI, DEIDRE Referring Unavailable CHIDI, DEIDRE Primary Care Unavailable NEEMA ORTIZ Attending Unavailable NEEMA ORTIZ Referring Unavailable NEEMA ORTIZ Primary Care Unavailable NEEMA ORTIZ Referring Unavailable CHIDI, DEIDRE Primary Care Unavailable Chidi RUBBER STAMP ASSEMBLERDeidre Pollack A Primary Care Provider [phone] Nandini Arroyo MD Emergency Provider Jair Rosenberg MD Admit Provider Jair Rosenberg MD Attending Provider [phone] Chidi RUBBER STAMP ASSEMBLERDeidre Pollack Primary Care Provider [phone] Nandini Arroyo MD Emergency Provider Jair Rosenberg MD Admit Provider Jair Rosenberg MD Attending Provider Eliza Johnson APRN Attending Provider [phone] Chidi VETERAN APPEALS REVIEWER-C, Deidre A Primary Care Unavailable Chidi VETERAN APPEALS REVIEWER-C, Deidre A Attending Unavailable Chidi VETERAN APPEALS REVIEWER-C, Deidre A Primary Care Unavailable Chidi VETERAN APPEALS REVIEWER-C, Deidre A Attending Unavailable Chidi VETERAN APPEALS REVIEWER-C, Deidre A Primary Care Unavailable Asaad, Imad [...] tablet Daily, 0 Refill(s) 10/24/2022 Active levonorgestrel 0.925936 mg/hr intrauterine system (3 sources) Progestin, Progestin-containing [...] Translations: [Acne, unspecified] Onset: 07-23-2024 07-23-2024 Episodic Ovarian cyst (1 source) Cyst of [...] Translations: [Shortness of breath] Onset: 07-30-2017 Episodic Other upper respiratory infections (4 sources) Acute pharyngitis, unspecified; Translations: [Acute pharyngitis] Onset: 09-23-2024 09-23-2024 Episodic Suicide and intentional self-inflicted injury (7 sources) Suicidal thoughts; Translations: [Suicidal ideations] Onset: 09-03-2024 09-03-2024 Episodic Results Test Name Value Interpretation Reference Range Facility Outside Recordson 09-25-2024 Outside Records [id number] .[facility] No Panel InformationOrdered By: Eliza Johnson on 09-23-2024 Quick Strep (POC) [facility] Strep A Culture Onlyon 09-23 Strep A Culture Only Strep A Only Cult No Group A Beta Streptococcus Isolated 2 Days PERFORMED BY: [place] [address] PATHOLOGIST GAS GENERATOR OPERATOR GINA STEPHENSON M.D. Normal [facility] Comment on above: Performed By: #### C USTA #### [address] Outside Recordson 09-07-2024 Outside Records [id number]. [facility] Cholesterol [Mass/volume] in Serum or PlasmaOrdered By: Jair Rosenberg on 09-04-2024 Cholesterol [Mass/Vol] Cholesterol [Mass/volume] in Serum or Plasma 140-200 [facility] Comment on above: Chol less than 200 m g/dl low riskChol 201-239 mg/dl borderline riskChol 240 mg/dl and greater high risk Cholesterol in HDL [Mass/vol ume] in Serum or PlasmaOrdered By: Jair Rosenberg on 09-04-2024 Cholesterol in HDL [Mass/Vol] Serum or plasma high density lipoprotein (HDL) cholesterol measurement 23-92 [facility] Comment on above: HDL CHOL ATP-III CLA SSIFICATION Cardiovascular RiskHDL > or equal to 60 mg/dL LOWHDL < 40 mg/dL HIGH Cholesterol in LDL Calc [Mas s/Vol]Ordered By: Jair Rosenberg on 09-04-2024 Cholesterol in LDL [Mass/Vol] Cholesterol in LDL [Mass/volume] in Serum or Plasma by calculation 0-100 [facility] Comment on above: LDL ATP III CLASSIFI CATIONLDL less than 100 mg/dL OptimalLDL 100-129 mg/dL Near or above optimalLDL 130-159 mg/dL Borderline highLDL 160-189 mg/dL HighLDL greater than 189 mg/dL Very high Cholesterol in VLDL Calc [Ma ss/Vol]Ordered By: Jair Rosenberg on 09-04-2024 Cholesterol in VLDL [Mass/Vol] Cholesterol in VLDL [Mass/volume] in Serum or Plasma by calculation [facility] ECG 12 lead ECGon 09-04-2024 ECG 12 lead ECG [facility] [address] [place] [address] [place] [address] Electrocardiograph Report Signed Patient: Mone Arriaza MR#: [id number] : 2000 Acct:[id number] Age/Sex: 24 / F ADM Date: 09/03/24 Loc: Room: [address] [place] [address] Type: ADM IN Attending Dr: Jair Rosenberg [...] previous ECGs available Confirmed by Miguelangel Fierro ([id number]) on 09/04/2024 4:41:41 PM Referred By: Electronically Signed By: Miguelangel Fierro Transcribed By: MUS Signed By Miguelangel Fierro MD 09/04/24 1641 Normal [facility] Lipid Panelon 09-04-2024 Cholesterol [Mass/Vol] 153 mg/dL Normal 140-200 [facility] Comment on above: Result Comment: Chol less than 200 mg/dl low risk Chol 201-239 mg/dl borderline risk Chol 240 mg/dl and greater high risk Performed By: #### V [id number], TSH3 wRFLX, LIPID #### [facility] [address] Cholesterol in HDL [Mass/Vol] 39 mg/dL Normal 23-92 [facility] Comment on above: Result Comment: HDL CHOL ATP-III CLASSIFICATION Cardiovascular Risk HDL > or equal to 60 mg/dL LOW HDL < 40 mg/dL HIGH Performed By: #### V [id number], TSH3 wRFLX, LIPID #### [facility] [address] Cholesterol.total/Choles terol in HDL [Mass ratio] 3.9 {ratio} Normal <5.0 [facility] Comment on above: Performed By: #### V [id number], TSH3 wRFLX, LIPID #### [facility] [address] LDL Cholesterol,Calculated 91 mg/dL Normal 0-100 [facility] Comment on above: Result Comment: LDL ATP III CLASSIFICATION LDL less than 100 mg/dL Optimal LDL 100-129 mg/dL Near or above optimal LDL 130-159 mg/dL Borderline high LDL 160-189 mg/dL High LDL greater than 189 mg/dL Very high Performed By: #### V [id number], TSH3 wRFLX, LIPID #### [facility] [address] Triglyceride w/Reflex 113 mg/dL Normal 0-149 [facility] Comment on above: Result Comment: TRIG ATP III CLASSIFICATION TRIG less than 150 mg/dL Normal TRIG 150-199 mg/dL Borderline high TRIG 200-500 mg/dL High TRIG greater than 500 mg/dL Very high Standard traceable to the Center for Disease Conrtrol and Prevention (CDC) test method. Performed By: #### V [id number], TSH3 wRFLX, LIPID #### [facility] [address] [place] [id number] [facility] VLDL CHOLESTEROL 22 mg/dL Normal [facility] Comment on above: Performed By: #### V [id number], TSH3 wRFLX, LIPID #### [facility] [address] [place] [id number] [facility] Serum or plasma total choles terol/high density lipoprotein (HDL) cholesterol mass ratOrdered By: Jair Rosenberg on 09-04-2024 Cholesterol.total/Choles terol in HDL [Mass ratio] Serum or plasma total cholesterol/high density lipoprotein (HDL) cholesterol mass rat <5.0 [facility] Thyroid Stim Hormone w/Rflxo n 09-04-2024 Thyroid Stim Hormone w/Rflx 0.83 u[iU]/mL Normal 0.45-5.33 [facility] Comment on above: Performed By: #### V [id number], TSH3 wRFLX, LIPID #### [facility] [address] [place] [address] [facility] Thyrotropin [Units/volume] i n Serum or PlasmaOrdered By: Jair Rosenberg on 09-04-2024 TSH Qn Thyrotropin [Units/volume] in Serum or Plasma 0.45-5.33 [facility] Triglyceride [Mass/volume] i n Serum or PlasmaOrdered By: Jair Rosenberg on 09-04-2024 Triglyceride [Mass/Vol] Triglyceride [Mass/volume] in Serum or Plasma 0-149 [facility] Comment on above: TRIG ATP III CLASSIF ICATIONTRIG less than 150 mg/dL NormalTRIG 150-199 mg/dL Borderline highTRIG 200-500 mg/dL High TRIG greater than 500 mg/dL Very highStandard traceable to the Center for Disease Conrtrol and Prevention (CDC) test method. Vitamin D 25 Hydroxy Totalon 09-04-2024 Vitamin D 25 Hydroxy Total <7.0 Low 30-100 [facility] Comment on above: Result Comment: LEIGH MIN D STATUS 25(OH)VITAMIN D RANGE (ng/mL) Deficient <20 Insufficient 20 to <30 Sufficient 30 to 100 Reference: Jolene MF,Ella NC, Laura MORALES, et al. Evaluation,treatment, and prevention of vitamin D deficiency; an Endocrine Society clinical practice guideline. JCEM. 2010; 96(7):1911-30. PERFORMED BY: [facility] [address] [place] [address] PATHOLOGIST GAS GENERATOR OPERATOR IGNA STEPHENSON M.D. Performed By: #### V [id number], TSH3 wRFLX, LIPID #### [facility] [address] [place] [id number] [facility] Vitamin D+Metabolites [Mass/ volume] in Serum or PlasmaOrdered By: Jair Rosenberg on 09-04-2024 Vitamin D+Metabolites [Mass/Vol] Vitamin D+Metabolites [Mass/volume] in Serum or Plasma Low 30-100 [facility] Comment on above: VITAMIN D [...] [Enzymatic activity/volume] in Serum or Plasma 7-52 [facility] Albumin [Mass/volume] in Ser um or Plasma by Bromocresol green (BCG) dye binding methoOrdered By: Nandini Arroyo on 09-03-2024 Albumin BCG dye [Mass/Vol] Albumin [Mass/volume] in Serum or Plasma by Bromocresol green (BCG) dye binding metho 3.5-5.7 [facility] Alkaline phosphatase [Enzyma tic activity/volume] in Serum or PlasmaOrdered By: Nandini Arroyo on 09-03-2024 ALP [Catalytic activity/Vol] Alkaline phosphatase [Enzymatic activity/volume] in Serum or Plasma 34-104 [facility] Amphetamine Screen Ql (U)Ord ered By: Nandini Arroyo on 09-03-2024 Amphetamines Ql (U) Amphetamines screen Negativ e [facility] Appearance of UrineOrdered B y: Nandini Arroyo on 09-03-2024 Appearance (U) Urine appearance Clear [facility] Aspartate aminotransferase [ Enzymatic activity/volume] in Serum or PlasmaOrdered By: Nandini Arroyo on 09-03-2024 AST [Catalytic activity/Vol] Aspartate aminotransferase [Enzymatic activity/volume] in Serum or Plasma 13-39 [facility] Bacteria [Presence] in Urine by AutomatedOrdered By: Nandini Arroyo on 09-03-2024 Bacteria Auto Ql (U) Bacteria [Presence] in Urine by Automated None Seen [facility] Barbiturates [Presence] in U rine by Screen methodOrdered By: Nandini Arroyo on 09-03-2024 Barbiturates Screen Ql (U) Barbiturates [Presence] in Urine by Screen method Negative [facility] Basophils Auto (Bld) [#/Vol] Ordered By: Nandini Arroyo on 09-03-2024 Basophils (Bld) [#/Vol] Automated basoph il count 0.0-0.2 [facility] Basophils/100 WBC Auto (Bld) Ordered By: Nandini Arroyo on 09-03-2024 Basophils/100 WBC (Bld) Automated basophil % . [facility] Benzodiazepines Screen Ql (U )Ordered By: Nandini Arroyo on 09-03-2024 Benzodiazepines Ql (U) Benzodiazepines [Presence] in Urine by Screen method Negative [facility] Benzoylecgonine [Presence] i n Urine by Screen methodOrdered By: Nandini Arroyo on 09-03-2024 Benzoylecgonine Screen Ql (U) Benzoylecgonine [Presence] in Urine by Screen method Negative [facility] Bilirubin Test strip Ql (U)O rdered By: Nandini Arroyo on 09-03-2024 Bilirubin Ql (U) Bilirubin.total [Presence] in Urine by Test strip Negative [facility] Bilirubin.total [Mass/volume ] in Serum or PlasmaOrdered By: Nandini Arroyo on 09-03-2024 Bilirubin [Mass/Vol] Bilirubin.total [Mass/volume] in Serum or Plasma 0.3-1.0 [facility] Calcium [Mass/volume] in Ser um or PlasmaOrdered By: Nandini Arroyo on 09-03-2024 Calcium [Mass/Vol] Calcium [Mass/volume ] in Serum or Plasma 8.6-10.3 [facility] Cannabinoids [Presence] in U rine by Screen methodOrdered By: Nandini Arroyo on 09-03-2024 Cannabinoids Screen Ql (U) Cannabinoids [Presence] in Urine by Screen method Negative [facility] Comment on above: These are [...] l [Moles/volume] in Serum or Plasma 21.0-31.0 [facility] Chloride [Moles/volume] in [place] or PlasmaOrdered By: Nandini Arroyo on 09-03-2024 Chloride [Moles/Vol] Chloride [Moles/volume] in Serum or Plasma 98-107 [facility] Color Auto (U)Ordered By: Lauryn Arroyo on 09-03-2024 Color (U) Color of Urine by Auto Yellow [facility] Blood Count Auto Di ffon 09-03-2024 Basophils (Bld) [#/Vol] 0.1 10*3/uL Normal 0.0-0.2 [facility] Comment on above: Result Comment: PERF ORMED BY: [place] [address] PATHOLOGIST GAS GENERATOR OPERATOR GINA STEPHENSON M.D. Performed By: #### E ANTOINETTE, CBC, CMP #### [address] Basophils/100 WBC (Bld) 0.5 % Normal . T jamal [facility] Comment on above: Performed By: #### E ANTOINETTE, CBC, CMP #### [facility] [address] [place] [address] [place] Eosinophils (Bld) [#/Vol] 0.1 10*3/uL Normal 0.0-0.45 [facility] Comment on above: Performed By: #### E ANTOINETTE, CBC, CMP #### [facility] [address] [place] [address] [place] Eosinophils/100 WBC (Bld) 0.5 % Normal . [facility] Comment on above: Performed By: #### E ANTOINETTE, CBC, CMP #### [address] Erythrocyte distribution width (RBC) [Ratio] 13.8 % Normal 11.9-15.3 [facility] Comment on above: Performed By: #### E ANTOINETTE, CBC, CMP #### [address] Hematocrit (Bld) [Volume fraction] 40.4 % Normal 34.0-46.4 [facility] Comment on above: Performed By: #### E ANTOINETTE, CBC, CMP #### [address] Hemoglobin (Bld) [Mass/Vol] 13.8 g/dL Normal 11.8-15.4 [facility] Comment on above: Performed By: #### E ANTOINETTE, CBC, CMP #### [address] Lymphocytes (Bld) [#/Vol] 1.7 10*3/uL Normal 1.00-4.8 [facility] Comment on above: Performed By: #### E ANTOINETTE, CBC, CMP #### [address] Lymphocytes/100 WBC (Bld) 15.1 % Normal . [facility] Comment on above: Performed By: #### E ANTOINETTE, CBC, CMP #### [address] MCH (RBC) [Entitic mass] 27.4 pg Normal 24.7-34.3 [facility] Comment on above: Performed By: #### E ANTOINETTE, CBC, CMP #### [address] MCV (RBC) [Entitic vol] 80.4 fL Normal 80-100 [facility] Comment on above: Performed By: #### E ANTOINETTE, CBC, CMP #### [address] Mean Corpuscular HGB Conc 34.1 g/dL Normal 32.0-35.0 [facility] Comment on above: Performed By: #### E ANTOINETTE, CBC, CMP #### [address] Monocytes (Bld) [#/Vol] 0.4 10*3/uL Normal 0.0-0.8 [facility] Comment on above: Performed By: #### E ANTOINETTE, CBC, CMP #### [address] Monocytes/100 WBC (Bld) 19.65 % Normal 0.00-20.00 [facility] Comment on above: Performed By: #### E ANTOINETTE, CBC, CMP #### [place] [address] [place] Monocytes/100 WBC (Bld) 3.4 % Normal . [facility] Comment on above: Performed By: #### E ANTOINETTE, CBC, CMP #### [address] Neutrophils (Bld) [#/Vol] 9.1 10*3/uL High 1.8-7.7 [facility] Comment on above: Performed By: #### E ANTOINETTE, CBC, CMP #### [place] [address] [place] Neutrophils/100 WBC (Bld) 80.5 % Normal . [facility] Comment on above: Performed By: #### E ANTOINETTE, CBC, CMP #### [address] NRBC% 0.1 /100{WBC} Normal 0-0.5 [facility] Comment on above: Performed By: #### E ANTOINETTE, CBC, CMP #### [place] [address] [place] Platelet mean volume (Bld) [Entitic vol] 7.8 fL Normal 6.3-10.7 [facility] Comment on above: Performed By: #### E ANTOINETTE, CBC, CMP #### [place] [address] [place] Platelets (Bld) [#/Vol] 383 10*3/uL Normal 150-450 [facility] Comment on above: Performed By: #### E ANTOINETTE, CBC, CMP #### [address] [place] [address] [place] RBC (Bld) [#/Vol] 5.03 10*6/uL High 3.60-5.00 [facility] Comment on above: Performed By: #### E ANTOINETTE, CBC, CMP #### [address] WBC (Bld) [#/Vol] 11.3 10*3/uL Normal 3.8-11.6 [facility] Comment on above: Performed By: #### E ANTOINETTE, CBC, CMP #### [address] Comprehensive Metabolic Pane javy 09-03-2024 Albumin [Mass/Vol] 4.2 g/dL Normal 3.5-5.7 [facility] Comment on above: Performed By: #### U HCG, ADDONUAPLUS, URDS #### [address] Albumin/Globulin [Mass ratio] 1.4 {ratio} Normal [facility] Comment on above: Performed By: #### U HCG, ADDONUAPLUS, URDS #### [address] ALP [Catalytic activity/Vol] 81 U/L Normal 34-104 [facility] Comment on above: Performed By: #### U HCG, ADDONUAPLUS, URDS #### [address] ALT [Catalytic activity/Vol] 22 U/L Normal 7-52 [facility] Comment on above: Performed By: #### U HCG, ADDONUAPLUS, URDS #### [address] Anion gap [Moles/Vol] 9.7 mmol/L Normal 6.0-15.0 [facility] Comment on above: Performed By: #### U HCG, ADDONUAPLUS, URDS #### [address] AST [Catalytic activity/Vol] 21 U/L Normal 13-39 [facility] Comment on above: Performed By: #### U HCG, ADDONUAPLUS, URDS #### [address] Bilirubin [Mass/Vol] 0.3 mg/dL Normal 0.3-1.0 [facility] Comment on above: Performed By: #### U HCG, ADDONUAPLUS, URDS #### [address] Calcium [Mass/Vol] 8.9 mg/dL Normal 8.6-10.3 [facility] Comment on above: Performed By: #### U HCG, ADDONUAPLUS, URDS #### [address] Chloride [Moles/Vol] 106 mmol/L Normal 98-107 [facility] Comment on above: Performed By: #### U HCG, ADDONUAPLUS, URDS #### [address] CO2 [Moles/Vol] 25.3 mmol/L Normal 21.0-31.0 [facility] Comment on above: Performed By: #### U HCG, ADDONUAPLUS, URDS #### [address] Creatinine [Mass/Vol] 0.66 mg/dL Normal 0.60-1.20 [facility] Comment on above: Performed By: #### U HCG, ADDONUAPLUS, URDS #### [address] Creatinine Clr Calc Pharmacy 191.99 Normal [facility] Comment on above: Result Comment: PERF ORMED BY: [place] [address] PATHOLOGIST GAS GENERATOR OPERATOR GINA STEPHENSON M.D. Performed By: #### U HCG, ADDONUAPLUS, URDS #### [address] GFR/1.73 sq M.predicted MDRD (S/P/Bld) [Vol rate/Area] mL/min/{1.73_m2} Normal [facility] Comment on above: Performed By: #### U HCG, ADDONUAPLUS, URDS #### [address] Globulin (S) [Mass/Vol] 3.1 g/dL Normal T he [facility] Comment on above: Performed By: #### U HCG, ADDONUAPLUS, URDS #### [address] Glucose [Mass/Vol] 110 mg/dL High 70-100 [facility] Comment on above: Result Comment: [facility] Glucose Reference Range is dependent on time and content of last meal. Glucose of more than 200 mg/dL in a nonstressed, ambulatory subject supports the diagnosis of Diabetes Mellitus. ADA recommended reference range Performed By: #### U HCG, ADDONUAPLUS, URDS #### [address] Potassium [Moles/Vol] 4.0 mmol/L Normal 3.5-5.1 [facility] Comment on above: Performed By: #### U HCG, ADDONUAPLUS, URDS #### [address] Protein [Mass/Vol] 7.3 g/dL Normal 6.4-8.9 [facility] Comment on above: Performed By: #### U HCG, ADDONUAPLUS, URDS #### [address] Sodium [Moles/Vol] 137 mmol/L Normal 136-145 [facility] Comment on above: Performed By: #### U HCG, ADDONUAPLUS, URDS #### [address] Urea nitrogen [Mass/Vol] 13 mg/dL Normal 7-25 [facility] Comment on above: Performed By: #### U HCG, ADDONUAPLUS, URDS #### [place] [address] [place] Creatinine [Mass/volume] in Serum or PlasmaOrdered By: Nandini Arroyo on 09-03-2024 Creatinine [Mass/Vol] Creatinine [Mass/volume] in Serum or Plasma 0.60-1.20 [facility] Dipstick and Microscopicon 0 09-03-2024 Appearance (U) Clear Normal Clear [facility] Comment on above: Order Comment: Name Collection Type:: Clean-Voided Midstream Performed By: #### U HCG, ADDONUAPLUS, URDS #### [facility] [address] Bacteria,Urine Rare Normal None Seen [facility] Comment on above: Order Comment: Name Collection Type:: Clean-Voided Midstream Performed By: #### U HCG, ADDONUAPLUS, URDS #### [place] [address] [place] Bilirubin,Urine Negative Normal Negative [facility] Comment on above: Order Comment: Name Collection Type:: Clean-Voided Midstream Performed By: #### U HCG, ADDONUAPLUS, URDS #### [facility] [address] [place] [address] [place] Color (U) Colorless Normal Yellow [facility] Comment on above: Order Comment: Name Collection Type:: Clean-Voided Midstream Performed By: #### U HCG, ADDONUAPLUS, URDS #### [facility] [address] [place] [address] Glucose Ql (U) Normal Normal Normal [facility] Comment on above: Order Comment: Name Collection Type:: Clean-Voided Midstream Performed By: #### U HCG, ADDONUAPLUS, URDS #### [facility] [address] [place] [address] [place] Hyaline Casts,Urine None Normal 0-8 [facility] Comment on above: Order Comment: Name Collection Type:: Clean-Voided Midstream Performed By: #### U HCG, ADDONUAPLUS, URDS #### [facility] [address] [place] [address] [place] Ketones Ql (U) Negative Normal Negative [facility] Comment on above: Order Comment: Name Collection Type:: Clean-Voided Midstream Performed By: #### U HCG, ADDONUAPLUS, URDS #### [address] Leukocyte esterase Test strip Ql (U) Negative Normal Negative [facility] Comment on above: Order Comment: Name Collection Type:: Clean-Voided Midstream Performed By: #### U HCG, ADDONUAPLUS, URDS #### [address] Mucus,Urine Rare Normal [facility] Comment on above: Order Comment: Name Collection Type:: Clean-Voided Midstream Performed By: #### U HCG, ADDONUAPLUS, URDS #### [address] Nitrite,Urine Negative Normal Negative [facility] Comment on above: Order Comment: Name Collection Type:: Clean-Voided Midstream Performed By: #### U HCG, ADDONUAPLUS, URDS #### [address] Occult Blood,Urine Trace High Negative [facility] Comment on above: Order Comment: Name Collection Type:: Clean-Voided Midstream Performed By: #### U HCG, ADDONUAPLUS, URDS #### [address] pH (U) 5.5 [pH] Normal 5.0-9.0 [facility] Comment on above: Order Comment: Name Collection Type:: Clean-Voided Midstream Performed By: #### U HCG, ADDONUAPLUS, URDS #### [address] Protein,Urine Negative Normal Negative [facility] Comment on above: Order Comment: Name Collection Type:: Clean-Voided Midstream Performed By: #### U HCG, ADDONUAPLUS, URDS #### [address] RBC,Urine 1-2 Normal 0-4 [facility] Comment on above: Order Comment: Name Collection Type:: Clean-Voided Midstream Performed By: #### U HCG, ADDONUAPLUS, URDS #### [address] Specificy [place],Urine 1.011 Normal 1.001-1.030 [facility] Comment on above: Order Comment: Name Collection Type:: Clean-Voided Midstream Performed By: #### U HCG, ADDONUAPLUS, URDS #### [address] Squamous Epithelial Cell,Urine 1-2 Normal 0-2 [facility] Comment on above: Order Comment: Name Collection Type:: Clean-Voided Midstream Performed By: #### U HCG, ADDONUAPLUS, URDS #### [address] Urobilinogen,Urine Normal Normal Normal [facility] Comment on above: Order Comment: Name Collection Type:: Clean-Voided Midstream Performed By: #### U HCG, ADDONUAPLUS, URDS #### [address] WBC,Urine 1-2 Normal 0-4 [facility] Comment on above: Order Comment: Name Collection Type:: Clean-Voided Midstream Performed By: #### U HCG, ADDONUAPLUS, URDS #### [address] Drug Screen,Urineon 09-03-19 25 Amphetamine Screen,Urine Negative Normal Negative [facility] Comment on above: Performed By: #### U HCG, ADDONUAPLUS, URDS #### [address] Barbiturate Screen,Urine Negative Normal Negative [facility] Comment on above: Performed By: #### U HCG, ADDONUAPLUS, URDS #### [address] Benzodiazepines Screen,Urine Negative Normal Negative [facility] Comment on above: Performed By: #### U HCG, ADDONUAPLUS, URDS #### [address] Cannabinoid Screen,Urine Negative Normal Negative [facility] Comment on above: Result Comment: Thes e are unconfirmed results and should not be used for legal purposes. Drug Cut-Off Concentration: AMPH 1000 ng/mL TEDDY 200 ng/mL MCKENNA 200 ng/mL COCM 300 ng/mL OP 300 ng/mL PCP 25 ng/mL THC 20 ng/mL PERFORMED BY: [place] [address] PATHOLOGIST GAS GENERATOR OPERATOR GINA STEPHENSON M.D. Performed By: #### U HCG, ADDONUAPLUS, URDS #### [facility] [address] [place] [address] [place] Cocaine Screen,Urine Negative Normal Negative [facility] Comment on above: Performed By: #### U HCG, ADDONUAPLUS, URDS #### [facility] [address] [place] [address] Opiate Screen,Urine Negative Normal Negative [facility] Comment on above: Performed By: #### U HCG, ADDONUAPLUS, URDS #### [facility] [address] [place] [address] [place] Phencyclidine Screen,Urine Negative Normal Negative [facility] Comment on above: Performed By: #### U HCG, ADDONUAPLUS, URDS #### [facility] [address] [place] [address] [place] Eosinophils Auto (Bld) [#/Vo l]Ordered By: Nandini Arroyo on 09-03-2024 Eosinophils (Bld) [#/Vol] Automated eosinophil count 0.0-0.45 [facility] Eosinophils/100 WBC Auto (Bl d)Ordered By: Nandini Arroyo on 09-03-2024 Eosinophils/100 WBC (Bld) Automated eosinophil % . [facility] Epithelial cells.squamous [# /area] in Urine sediment by Automated countOrdered By: Nandini Arroyo on 09-03-2024 Epithelial cells.squamous Auto (Urine sed) [#/Area] Epithelial cells.squamous [#/area] in Urine sediment by Automated count 0-2 [facility] Erythrocyte distribution wid th Auto (RBC) [Ratio]Ordered By: Nandini Arroyo on 09-03-2024 Erythrocyte distribution width (RBC) [Ratio] Erythrocyte distribution width [Ratio] by Automated count 11.9-15.3 [facility] Erythrocytes [#/area] in Uri ne sediment by Automated countOrdered By: Nandini Arroyo on 09-03-2024 RBC Auto (Urine sed) [#/Area] Erythrocytes [#/area] in Urine sediment by Automated count 0-4 [facility] Ethanol [Mass/volume] in Ser um or PlasmaOrdered By: Nandini Arroyo on 09-03-2024 Ethanol [Mass/Vol] Ethanol [Mass/volume ] in Serum or Plasma [facility] Comment on above: Test not performed Ethyl Alcohol Profileon 08-09 Ethanol [Mass/Vol] mg/dL Normal [facility] Comment on above: Performed By: #### E ANTOINETTE, CBC, CMP #### [facility] [address] [place] [address] Percent Ethanol Not performed Normal [facility] Comment on above: Result Comment: PERF ORMED BY: [place] [address] PATHOLOGIST GAS GENERATOR OPERATOR GINA STEPHENSON M.D. Performed By: #### E ANTOINETTE, CBC, CMP #### [facility] [address] [place] [address] Globulin Calc (S) [Mass/Vol] Ordered By: Nandini Arroyo on 09-03-2024 Globulin (S) [Mass/Vol] Serum globulin measurement by calculation (mass/volume) [facility] Glucose [Mass/volume] in Ser um or PlasmaOrdered By: Nandini Arroyo on 09-03-2024 Glucose [Mass/Vol] Glucose [Mass/volume ] in Serum or Plasma High 70-100 [facility] Comment on above: ADA recommended [...] [Mass/volume] in Urine by Test strip Normal [facility] HCG ( test) IA.rapi d Ql (U)Ordered By: Nandini Arroyo on 09-03-2024 HCG ( test) Ql (U) Urine human chorionic gonadotropin (hCG) detection by immunoassay [facility] HCG,Urineon 09-03-2024 Beta HCG ( test) Ql (U) Negative Normal [facility] Comment on above: Order Comment: Name Collection Type:: Clean-Voided Midstream Result Comment: PERF ORMED BY: [place] [address] PATHOLOGIST GAS GENERATOR OPERATOR GINA STEPHENSON M.D. Performed By: #### U HCG, ADDONUAPLUS, URDS #### [address] Hematocrit Auto (Bld) [Volum e fraction]Ordered By: Nandini Arroyo on 09-03-2024 Hematocrit (Bld) [Volume fraction] Hematocrit [Volume Fraction] of Blood by Automated count 34.0-46.4 [facility] Hemoglobin Test strip Ql (U) Ordered By: Nandini Arroyo on 09-03-2024 Hemoglobin Ql (U) Hemoglobin [Presence ] in Urine by Test strip High Negative [facility] Hemoglobin [Mass/volume] in BloodOrdered By: Nandini Arroyo on 09-03-2024 Hemoglobin (Bld) [Mass/Vol] Hemoglobin [Mass/volume] in Blood 11.8-15.4 [facility] Hyaline casts [#/area] in Ur ine sediment by Automated countOrdered By: Nandini Arroyo on 09-03-2024 Hyaline casts Auto (Urine sed) [#/Area] Hyaline casts [#/area] in Urine sediment by Automated count 0-8 [facility] Ketones Test strip Ql (U)Ord ered By: Nandini Arroyo on 09-03-2024 Ketones Ql (U) Ketones [Presence] i n Urine by Test strip Negative [facility] Leukocyte esterase [Presence ] in Urine by Test stripOrdered By: Nandini Arroyo on 09-03-2024 Leukocyte esterase Test strip Ql (U) Leukocyte esterase [Presence] in Urine by Test strip Negative [facility] Leukocytes [#/area] in Urine sediment by Automated countOrdered By: Nandini Arroyo on 09-03-2024 WBC Auto (Urine sed) [#/Area] Leukocytes [#/area] in Urine sediment by Automated count 0-4 [facility] Leukocytes [#/volume] correc krzysztof for nucleated erythrocytes in Blood by Automated counOrdered By: Nandini Arroyo on 09-03-2024 WBC corrected for nucl RBC Auto (Bld) [#/Vol] Leukocytes [#/volume] corrected for nucleated erythrocytes in Blood by Automated coun 3.8-11.6 [facility] Lymphocytes Auto (Bld) [#/Vo l]Ordered By: Nandini Arroyo on 09-03-2024 Lymphocytes (Bld) [#/Vol] Lymphocytes [#/volume] in Blood by Automated count 1.00-4.8 [facility] Lymphocytes/100 WBC Auto (Bl d)Ordered By: Nandini Arroyo on 09-03-2024 Lymphocytes/100 WBC (Bld) Lymphocytes/100 leukocytes in Blood by Automated count . [facility] MCH Auto (RBC) [Entitic mass ]Ordered By: Nandini Arroyo on 09-03-2024 MCH (RBC) [Entitic mass] MCH [Entitic ma ss] by Automated count 24.7-34.3 [facility] MCHC Auto (RBC) [Mass/Vol]Or dered By: Nandini Arroyo on 09-03-2024 MCHC (RBC) [Mass/Vol] MCHC [Mass/volume] by Automated count 32.0-35.0 [facility] MCV Auto (RBC) [Entitic vol] Ordered By: Nandini Arroyo on 09-03-2024 MCV (RBC) [Entitic vol] MCV [Entitic vol ume] by Automated count 80-100 [facility] Monocyte distribution width [Entitic volume] in Blood by AutomatedOrdered By: Nandini Arroyo on 09-03-2024 Monocyte distribution width Auto (Bld) [Entitic vol] Monocyte distribution width [Entitic volume] in Blood by Automated 0.00-20.00 [facility] Monocytes Auto (Bld) [#/Vol] Ordered By: Nandini Arroyo on 09-03-2024 Monocytes (Bld) [#/Vol] Automated blood monocyte count 0.0-0.8 [facility] Monocytes/100 WBC Auto (Bld) Ordered By: Nandini Arroyo on 09-03-2024 Monocytes/100 WBC (Bld) Automated monocyte % . [facility] Mucus [Presence] in Urine by AutomatedOrdered By: Nandini Arroyo on 09-03-2024 Mucus Auto Ql (U) Mucus [Presence] in Urine by Automated [facility] Neutrophils Auto (Bld) [#/Vo l]Ordered By: Nandini Arroyo on 09-03-2024 Neutrophils (Bld) [#/Vol] Neutrophils [#/volume] in Blood by Automated count High 1.8-7.7 [facility] Neutrophils/100 WBC Auto (Bl d)Ordered By: Nandini Arroyo on 09-03-2024 Neutrophils/100 WBC (Bld) Automated neutrophil % . [facility] Nitrite Test strip Ql (U)Ord ered By: Nandini Arroyo on 09-03-2024 Nitrite Ql (U) Nitrite [Presence] i n Urine by Test strip Negative [facility] No Panel InformationOrdered By: Nandini Arroyo on 09-03-2024 Estimated GFR (CKD-EPI) > 60.0 mL/Min [facility] Creatinine Clearance (Chem 191.99 [facility] Nucleated erythrocytes [Pres ence] in Blood by Automated countOrdered By: Nandini Arroyo on 09-03-2024 Nucleated RBC Auto Ql (Bld) Nucleated erythrocytes [Presence] in Blood by Automated count 0-0.5 [facility] Opiates [Presence] in Urine by Screen methodOrdered By: Nandini Arroyo on 09-03-2024 Opiates Screen Ql (U) Opiates [Presence] in Urine by Screen method Negative [facility] Phencyclidine Screen Ql (U)O rdered By: Nandini Arroyo on 09-03-2024 Phencyclidine Ql (U) Phencyclidine [Presence] in Urine by Screen method Negative [facility] Platelet mean volume Auto (B ld) [Entitic vol]Ordered By: Nandini Arroyo on 09-03-2024 Platelet mean volume (Bld) [Entitic vol] Platelet mean volume [Entitic volume] in Blood by Automated count 6.3-10.7 [facility] Platelets Auto (Bld) [#/Vol] Ordered By: Nandini Arroyo on 09-03-2024 Platelets (Bld) [#/Vol] Platelets [#/vol ume] in Blood by Automated count 150-450 [facility] Potassium [Moles/volume] in Serum or PlasmaOrdered By: Nandini Arroyo on 09-03-2024 Potassium [Moles/Vol] Potassium [Moles/volume] in Serum or Plasma 3.5-5.1 [facility] Protein Test strip (U) [Mass /Vol]Ordered By: Nandini Arroyo on 09-03-2024 Protein (U) [Mass/Vol] Protein [Mass/vol ume] in Urine by Test strip Negative [facility] Protein [Mass/volume] in Ser um or PlasmaOrdered By: Nandini Arroyo on 09-03-2024 Protein [Mass/Vol] Protein [Mass/volume ] in Serum or Plasma 6.4-8.9 [facility] RBC Auto (Bld) [#/Vol]Ordere d By: Nandini Arroyo on 09-03-2024 RBC (Bld) [#/Vol] Erythrocytes [#/volume] in Blood by Automated count High 3.60-5.00 [facility] Serum or plasma albumin/glob ulin mass ratioOrdered By: Nandini Arroyo on 09-03-2024 Albumin/Globulin [Mass ratio] Serum or plasma albumin/globulin mass ratio [facility] Serum or plasma anion gap de terminationOrdered By: Nandini Arroyo on 09-03-2024 Anion gap [Moles/Vol] Serum or plasma an ion gap determination 6.0-15.0 [facility] Sodium [Moles/volume] in Ser um or PlasmaOrdered By: Nandini Arroyo on 09-03-2024 Sodium [Moles/Vol] Sodium [Moles/volume ] in Serum or Plasma 136-145 [facility] Specific gravity Test strip (U) [Rel density]Ordered By: Nandini Arroyo on 09-03-2024 Specific gravity (U) [Rel density] Specific gravity of Urine by Test strip 1.001-1.030 [facility] Urea nitrogen [Mass/volume] in Serum or PlasmaOrdered By: Nandini Arroyo on 09-03-2024 Urea nitrogen [Mass/Vol] Urea nitrogen [Mass/volume] in Serum or Plasma 7-25 [facility] Urobilinogen Test strip (U) [Mass/Vol]Ordered By: Nandini Arroyo on 09-03-2024 Urobilinogen (U) [Mass/Vol] Urobilinogen [Mass/volume] in Urine by Test strip Normal [facility] WBC Auto (Bld) [#/Vol]Ordere d By: Nandini Arroyo on 09-03-2024 WBC (Bld) [#/Vol] Leukocytes [#/volume ] in Blood by Automated count 3.8-11.6 [facility] pH Test strip (U)Ordered By: Nandini Arroyo on 09-03-2024 pH (U) pH of Urine by Test strip 5.0-9.0 [facility] US PELVIC WITH TRANSVAGINALo n [...] Marcos MD on 07/29/2024 11:29 AM Normal [facility] Cytologyon 07-23-2024 Cytology Normal [facility] Comment on above: Result Comment: [facility] [address] [place] [address] Gynecologic Cytology Consultation Patient Name:MONE ARRIAZA:2000 (Age: 24)Gender:FTaken:07/23/2024Reported:08/04/2024Physician(s):Hima AnayaNMao ([phone])Copy To: Rec. #:[id number]: #[id number] Final Cytologic Interpretation ThinPrep Pap Test (Cervical): Satisfactory for evaluation. A transformation zone component is present. NEGATIVE FOR INTRAEPITHELIAL LESION OR MALIGNANCY. [facility] [employer]/08/04/2024 Interpretation performed at [facility], [address] [place] [address], License number: [id number]. Electronically Signed Out By LILIBETH Coronel(ASCP) Date of Last Menstrual Period: (None Given) Other Clinical Conditions: IUD Previous abnormal pap LSIL Z01.419 Clinical Education Academic Coordinator exam wo/abn findings Source of Specimen ThinPrep Pap Test (Cervical) Thin Prep Pap (MEDIA INTERN) Fee Code(s): G0145 The Pap test is a screening test with an inherent, but low, probability of error. The Pap test is primarily effective for the diagnosis and prevention of squamous cell carcinoma. Regular screening is critical for prevention. ThinPrep liquid-based slides, which meet the Terrestrial Ecologist criteria for automated screening, have been screened by the ThinPrep Imaging System (as of 03/24/07) along with an additional manual rescreening by a him specialist and, if indicated, by a pathologist. HIGH RISK HPV W/GENOon 07-23 HPV 31+33+35+39+45+51+52+56+ 58+59+66+68 DNA LAWANDA+probe Ql (Cvx) HPV SPECIMEN TYPE ThinPrep HPV 16 Negative (qualifier value) HPV 18 Negative (qualifier value) OTHER HIGH RISK HPV Positive (qualifier value) For the DNA of any or combination of the following HPV types: 31,33,35,45, 52,56,58,59,66 and 68. Normal [facility] Comment on above: Performed By: #### 7 1431-1 #### [facility] ([id number]) [address] [place] [address] [place] [address] [facility] ([id number]) [address] [place] [address] [place] enterographyon 03-18-[address] enterography [facility] [place] [address] [place] [address] CT Scan Report Signed Patient: Mone Arriaza MR#: [id number] 2 : 2000 Acct:[id number] Age/Sex: 23 / F ADM Date: 03/18/24 Loc: CT Room: Type: [facility] Attending Dr: Noris May MD Copies to: [...] Noah Gibbs M.D.03/18/2024 3:25 PM Dictation Location: [place] [address] Transcribed By: [facility] 03/18/24 1525 Dictated By: Noah Gibbs DO 03/18/24 1513 Signed By: 03/18/24 1525 Normal [facility] Outside Recordson 03-11-2024 Outside Records [id number]. 00OTGTIFF [facility] Outside Recordson 12-03-2023 Outside Records [id number]. 00OTGTIFF [facility] CR Chest Portableon 07-30-19 18 CR Chest Portable Patient Name: MONE ARRIAZA Diagnostic Radiology Exam Date/Time 07/30/2017 01:31:40 EST Exam CR Chest Portable Ordering Physician WENDI EMMANUEL SCOTT Accession Number [id number] CPT4 Codes 71645 () Reason For Exam gasps for air [...] Transcribed Date and Time: 07/30/2017 2:04 Normal [facility] Vital Signs Date Time Vital Sign Value Performing Clinician Facility 09-23-2024 14:33-0400 Body height 175.26 cm Deidre Murillo APRN Work Phone: [facility] 09-23-2024 14:33-0400 Body mass index (BMI) [Ratio] 44.4 kg/m2 Deidre Murillo APRN Work Phone: [facility] 09-23-2024 14:33-0400 Body temperature 98.3 [degF] Deidre Murillo APRN Work Phone: [facility] 09-23-2024 14:33-0400 Body weight 136.53 kg Deidre Chidi RUBBER STAMP ASSEMBLER Work Phone: [facility] 09-23-2024 14:33-0400 Diastolic blood pressure 85 mm[Hg] Deidre Chidi RUBBER STAMP ASSEMBLER Work Phone: [facility] 09-23-2024 14:33-0400 Heart rate 77 /min Deidre Chidi RUBBER STAMP ASSEMBLER Work Phone: [facility] 09-23-2024 14:33-0400 Respiratory rate 16 /min Deidre Chidi RUBBER STAMP ASSEMBLER Work Phone: [facility] 09-23-2024 14:33-0400 SaO2% (BldA) [Mass fraction] 96 % Deidre Chidi RUBBER STAMP ASSEMBLER Work Phone: [facility] 09-23-2024 14:33-0400 Systolic blood pressure 125 mm[Hg] Deidre Chidi RUBBER STAMP ASSEMBLER Work Phone: [facility] 09-06-2024 07:30-0500 Body temperature 97.8 [degF] Deidre Chidi RUBBER STAMP ASSEMBLER Work Phone: [facility] 09-06-2024 07:30-0500 Diastolic blood pressure 87 mm[Hg] Deidre Chidi RUBBER STAMP ASSEMBLER Work Phone: [facility] 09-06-2024 07:30-0500 Heart rate 67 /min Deidre Chidi RUBBER STAMP ASSEMBLER Work Phone: [facility] 09-06-2024 07:30-0500 Respiratory rate 16 /min Deidre Chidi RUBBER STAMP ASSEMBLER Work Phone: [facility] 09-06-2024 07:30-0500 SaO2% (BldA) [Mass fraction] 97 % Deidre Chidi RUBBER STAMP ASSEMBLER Work Phone: [facility] 09-06-2024 07:30-0500 Systolic blood pressure 137 mm[Hg] Deidre Chidi RUBBER STAMP ASSEMBLER Work Phone: 8(600)[phone] [place] [address] 09-03-2024 14:38-0500 Body height 175.26 cm Deidre Chidi RUBBER STAMP ASSEMBLER Work Phone: 9(378)978-698386 [place] [address] 09-03-2024 11:27-0500 Body weight 136.62 kg Deidre Chidi RUBBER STAMP ASSEMBLER Work Phone: 1(680)050-393586 [place] [address] 09-03-2024 06:20-0500 Body height 175.26 cm Deidre Chidi RUBBER STAMP ASSEMBLER Work Phone: 5(179)[phone] [place] [address] 09-03-2024 06:20-0500 Body temperature 98.7 [degF] Deidre Chidi RUBBER STAMP ASSEMBLER Work Phone: 4(195)940-242286 [place] [address] 09-03-2024 06:20-0500 Body weight 136.07 kg Deidre Chidi RUBBER STAMP ASSEMBLER Work Phone: 8(886)545-410986 [place] [address] 09-03-2024 06:20-0500 Diastolic blood pressure 108 mm[Hg] Deidre Chidi RUBBER STAMP ASSEMBLER Work Phone: 3(216)232-719186 [place] [address] 09-03-2024 06:20-0500 Heart rate 76 /min Deidre Chidi RUBBER STAMP ASSEMBLER Work Phone: 5(477)533-940686 [place] [address] 09-03-2024 06:20-0500 Respiratory rate 22 /min Deidre Chidi RUBBER STAMP ASSEMBLER Work Phone: 3(080)[phone] [place] [address] 09-03-2024 06:20-0500 SaO2% (BldA) [Mass fraction] 95 % Deidre Chidi RUBBER STAMP ASSEMBLER Work Phone: 7(773)727-366086 [place] [address] 09-03-2024 06:20-0500 Systolic blood pressure 165 mm[Hg] Deidre Chidi RUBBER STAMP ASSEMBLER Work Phone: 1(467)213-453257 [address] 07-23-2024 09:29-0500 Body height 175.3 cm Neema MacJeffryin RUBBER STAMP ASSEMBLER-CLOTH PRINTER HELPER Work Phone: [facility] 07-23-2024 09:29-0500 Body mass index (BMI) [Ratio] 45.19 kg/m2 Neema Reynoldsin RUBBER STAMP ASSEMBLER-CLOTH PRINTER HELPER Work Phone: [facility] 07-23-2024 09:29-0500 Body weight 138.8 kg Neema Ortiz RUBBER STAMP ASSEMBLER-CLOTH PRINTER HELPER Work Phone: [facility] 07-23-2024 09:29-0500 Diastolic blood pressure 72 mm[Hg] Neema Ortiz RUBBER STAMP ASSEMBLER-CLOTH PRINTER HELPER Work Phone: [facility] 07-23-2024 09:29-0500 Systolic blood pressure 122 mm[Hg] Neema Ortiz RUBBER STAMP ASSEMBLER-CLOTH PRINTER HELPER Work Phone: [facility] 03-02-2024 09:35-0400 Body height 175.26 cm [facility] 03-02-2024 09:35-0400 Body mass index (BMI) [Ratio] 46 kg/m2 [facility] 03-02-2024 09:35-0400 Body weight 141.52 kg [facility] 02-21-2023 10:00-0400 Body height 173.99 cm [employer] Other [employer] Other 02-21-2023 10:00-0400 Body mass index (BMI) [Ratio] 49.82 kg/m2 [employer] Other [employer] Other 02-21-2023 10:00-0400 Body weight 150.82 kg [employer] Other [employer] Other 02-21-2023 10:00-0400 Diastolic blood pressure 86 mm[Hg] [employer] Other [employer] Other 02-21-2023 10:00-0400 Respiratory rate 20 /min [employer] Other [employer] Other 02-21-2023 10:00-0400 SaO2% (BldA) [Mass fraction] 96 % German [employer] Other [facility] [employer] Other 02-21-2023 10:00-0400 Systolic blood pressure 140 mm[Hg] German Flores Other [facility] [employer] Other Encounters Encounter Date Encounter Type Care Provider Facility Start: 09-23-2024 End: 09-23-2024 Departed Referred Deidre Chidi RUBBER STAMP ASSEMBLER Work Phone: [facility] [place] Work Phone: Start: 09-23-2024 End: 09-23-2024 ambulatory Deidre A Chidi RUBBER STAMP ASSEMBLER Work Phone: [facility] Work Phone: Start: 09-23-2024 End: 09-23-2024 Patient encounter procedure Deidre Chidi RUBBER STAMP ASSEMBLER Work Phone: [facility] Work Phone: Start: 09-04-2024 Non-patient / Non-visit Deidre Chidi RUBBER STAMP ASSEMBLER Work Phone: [facility] Work Phone: Start: 09-03-2024 ambulatory Jair Rosenberg Facility:[facility] Start: 09-03-2024 End: 09-06-2024 Evaluation and management of inpatient Deidre Chidi RUBBER STAMP ASSEMBLER Work Phone: [facility] Work Phone: Start: 08-26-2024 End: 08-26-2024 ambulatory Deidre A Chidi VETERAN APPEALS REVIEWER-C Facility:[facility] Start: 07-29-2024 End: 07-29-2024 ambulatory NEEMA ORTIZ [facility] Start: 07-23-2024 End: 07-23-2024 Initial preventive medicine new pt age 18-39yrs Neema Ortiz RUBBER STAMP ASSEMBLER-CLOTH PRINTER HELPER Work Phone: [facility] Obstetrics/Gynecology Comment on above: Women's annual routi ne gynecological examination (Primary Dx); Cervical smear, as part of routine gynecological examination; Standardized adult depression screening tool completed; IUD check up; History of ovarian cyst; History of abnormal cervical Pap smear Start: 07-23-2024 End: 07-23-2024 Patient encounter procedure Neema Ortiz RUBBER STAMP ASSEMBLER-CLOTH PRINTER HELPER Work Phone: [facility] Work Phone: Start: 07-23-2024 End: 07-23-2024 ambulatory [facility] [place]: 07-23-2024 End: 07-23-2024 Encounter for gynecological examination (general) (routine) without abnormal findings Neemakatelynn Ortiz RUBBER STAMP ASSEMBLER-CLOTH PRINTER HELPER Work Phone: [facility] Start: 07-23-2024 End: 07-23-2024 ambulatory [facility] Start: 07-23-2024 Encounter for gynecological examination (general) (routine) without abnormal findings [facility] Start: 03-18-2024 End: 03-18-2024 Patient encounter procedure RUBBER STAMP ASSEMBLER Deidre Chidi Work Phone: [facility]CT Scan [facility] [place] Work Phone: Start: 03-18-2024 End: 03-18-2024 ambulatory RUBBER STAMP ASSEMBLER Deidre A Chidi Work Phone: [facility] Work Phone: Start: 03-02-2024 End: 03-02-2024 ambulatory [facility] Work Phone: Start: 03-02-2024 End: 03-02-2024 Patient encounter procedure [facility] Work Phone: Start: 11-27-2023 End: 11-27-2023 ambulatory Deidre A Chidi VETERAN APPEALS REVIEWER-C Facility:[facility] Start: 11-21-2023 End: 11-21-2023 ambulatory Deider A Chidi VETERAN APPEALS REVIEWER-C Facility:[facility] Start: 08-08-2023 End: 08-08-2023 ambulatory RUBBER STAMP ASSEMBLER Deidre Murillo Work Phone: [facility] Work Phone: Start: 08-08-2023 End: 08-08-2023 Departed Referred RUBBER STAMP ASSEMBLER Deidre Chidi Work Phone: [facility]-LAB Path [facility] Start: 03-04-2023 End: 03-04-2023 ambulatory German Flores Other [employer] Other Start: 03-04-2023 Telephone encounter German ramos [facility] Start: 02-21-2023 End: 02-21-2023 ambulatory German Flores Other [employer] Other Start: 02-21-2023 Nutrition therapy German Card[facility] Start: 07-30-2017 Emergency department patient visit [facility] Procedures Date Procedure Procedure Detail Performing Clinician Start: 09-23-2024 Quick Strep (POC) Deidre Badilloert RUBBER STAMP ASSEMBLER Work Phone: Start: 07-23-2024 Adult depression screening assessment Neema Ortiz RUBBER STAMP ASSEMBLER-CLOTH PRINTER HELPER Work Phone: Start: 03-18-2024 CT of small intestine A PRN Deidre Murillo Work Phone: Plan of Treatment Date Care Activity Detail Author Start: 07-23-2025 Adult BMI Screening Adult BMI Screen ing [facility] Start: 07-23-2025 Depression Screening Depression Scre ening [facility] Start: 07-23-2025 Tobacco Screening Tobacco Screening [facility] Start: 09-23-2024 Streptococcus pyogen es [Presence] in Unspecified specimen by Organism specific culture [facility] Start: 09-23-2024 Group A Streptococcu s Culture Group A Streptococcus Culture [facility] Start: 09-06-2024 [facility] Start: 09-03-2024 Hospital admission [facility] Start: 07-29-2024 End: 07-29-2024 Patient encounter procedure 07/29/2024 8:30 AM EST Appointment [facility] - Ultrasound [address] [place] [address] [facility] - Ultrasound Start: 07-23-2024 End: 07-23-2025 Cytopathology procedure, preparation of smear, genital source Pap Smear Pathology and Cytology Routine Cervical smear, as part of routine gynecological examination Expected: 07/23/2024 (Approximate), Expires: 07/23/2025 [facility] Comment on above: Expected: 07/23/2024 (Approximate), Expires: 07/23/2025 Start: 07-23-2024 End: 07-23-2025 US Pelvis transabdominal and transvaginal Ultrasound pelvic with transvaginal Imaging Routine IUD check up History of ovarian cyst Expected: 07/23/2024, Expires: 07/23/2025 [facility] Work Phone: Comment on above: Expected: 07/23/2024 , Expires: 07/23/2025 Start: 03-08-2024 COVID-19 Vaccine ( season) COVID-19 Vaccine ( season) [facility] Start: 03-08-2024 Influenza vaccination Influenza Vacc ine [facility] Start: 10-16-2020 DTaP,Tdap and Td Vaccines (7 - Td or Tdap) DTaP,Tdap and Td Vaccines (7 - Td or Tdap) [facility] Start: 2019 Screening for malign ant neoplasm of cervix Pap Smear [facility] Start: 2016 Adult BMI Follow Up Plan Adult BMI Follow Up Plan [facility] CT Abdomen and Pelvis [facility] Patient Education Bipolar disord er - Discharge instructions [facility] [place] Instructions Know your Meds [facility] Work Phone: Patient referral [facility] Work Phone: Streptococcus pyogen es [Presence] in Unspecified specimen by Organism specific culture [facility] Payers Date Payer Category Payer Self-pay 2023 Managed Care Other (unspecified) [employer] [id number] 2023 Unknown [id number] 2021 Private Health Insurance [id number] 1998 Unknown [id number] [id number] 1998 Unknown [id number] [id number] 1998 Unknown [id number] [id number] 1998 Unknown [id number] [id number] 1998 Unknown [id number] [id number] Private Health Insurance Unknown [id number] [id number] Unknown [id number] [id number] Unknown [id number] [id number] Unknown [id number] [id number] Social History Date Type Detail Facility Unknown if ever smoked [employer] Other Start: 08-18-2020 End: 07-23-2024 Sex Assigned At [facility] Start: 2000 Sex Assigned At Female [facility] Start: 03-02-2024 Tobacco smoking status NHIS Ex-smoker (finding) [facility] Start: 01-12-2019 Tobacco smoking status NHIS Never smoked tobacco [facility] Start: 01-12-2019 Tobacco use and exposure Smokeless tobacco non-user [facility] Start: 07-23-2024 Alcoholic beverage intake Current drinker of alcohol (finding) [facility] Start: 08-18-2020 End: 07-23-2024 History of Social function [facility] Adolescent depressio n screening assessment 10 [facility] Start: 01-12-2019 Alcohol Comment social [facility] Start: 2000 Sex assigned at Not on file P [facility] Start: 02-10-2015 End: 09-24-2024 Sex Female (finding) [facility] Start: 09-03-2024 Tobacco smoking status NHIS Smoker (finding) [facility] Start: 09-23-2024 Tobacco smoking status NHIS Unknown if ever smoked [facility] NEGATED: Highlighted row [facility] Goals Date Patient Goal Desired Activity /State Functional Status Date Assessment Result Facility 09-06-2024 Functional status Patient at Baseline [facility] Work Phone: Mental Status Date Assessment Result Facility 09-06-2024 Cognitive function Cognitive Sta tus Patient at Baseline [facility] Work Phone: Clinical Notes 02-21-2023 to 09-06-2024 Note Date & Type Note Facility 09-06-2024 Discharge summary Note Date/Time September 06, 2024 6:53am [facility] [address] [place] [address] Discharge Summary Signed Patient: Mone Arriaza MR#: [id number] : 2000 Acct:[id number] Age/Sex: 24 / F Adm Date: 5 Loc: 1S Room: 6D5739-[address]: Jair Rosenberg MD Copies to: MD Deidre Phillips, RUBBER STAMP ASSEMBLER, CLOTH PRINTER HELPER~ Providers Date of Discharge: 09/06/24 Discharging Provider: Jair Rosenberg Primary Care Provider: Deidre Murillo Discharge Diagnosis (1) Depression: (2) Suicidal ideation: (3) Bipolar 1 disorder: Final Diagnosis Final Discharge Diagnosis: MDD Summary Hospital Course Hospital course: Ms. Arriaza is a 24 year old female who was admitted to the unit due to anxiety, depression and SI. She reports that she works at [employer] and this has been very stressful lately [...] self with a gun. She works at [employer] stating I need to get a way [...] Instructions: Important Contact Information You can call [facility] at [phone] any time day or night if you have emergent questions or question regarding discharge instructions. If at any time you are feeling an increase inyour psychiatric symptoms, call your physician or behavioral healthcare provider. If any time you have thoughts of harming yourself or others contact one of the following: Call (available 28/01) Crisis Text Line (available 28/01) text 4HOPE to [phone] [facility] Line (available 8 a.m. Midnight) call [phone] ([phone]) Instructions: Know your Meds Stand Alone Forms: Work/School Release Form Prescriptions: New lamotrigine 25 mg Tablet 25 mg PO DAILY 15 Days Qty: 15 3RF ergocalciferol (vitamin D2) 1,250 mcg (50,000 unit) Capsule 1,250 mcg PO Gutiérrez@0900 30 Days Qty: 5 0RF aripiprazole 2 mg Tablet 2 mg PO QHS 15 Days Qty: 15 2RF Follow Up: [facility] [Outside] (In order to return for mental health follow-up, you will need to contact the office and sign up for a no-show class. Once this is complete, the office will be able to get you re-established. ) [facility] [Outside] (facesheet sent- ok to schedule on discharge. ) Deidre Muirllo APRN, VETERAN APPEALS REVIEWER-C [Primary Care Provider] - (Call for any medical needs) Exam Physical Exam Vital Signs: Temp Pulse Resp BP Pulse Ox O2 Del Method 98 F 68 16 124/83 98 Room Air 09/05/24 19:59 09/05/24 19:59 09/05/24 19:59 09/05/24 19:59 09/05/24 19:59 09/05/24 19:59 Documented By: Jair Rosenberg MD 5 0651 Signed By: <Electronically signed by Jair Rosenberg MD> 09/06/24 0653 [facility] Work Phone: 1(784) 596-391403-02-2025 [place] [address] Discharge Summary Signed Patient: Mone Arriaza MR#: [id number] : 2000 Acct:[id number] Age/Sex: 24 / F Adm Date: 5 Loc: 1S Room: [address] [place] [address]: Jair Rosenberg MD Copies to: MD Deidre Phillips APRN, CLOTH PRINTER HELPER~ Providers Date of Discharge: 09/06/24 Discharging Provider: Jair Rosenberg Primary Care Provider: Deidre Murillo Discharge Diagnosis (1) Depression: (2) Suicidal ideation: (3) Bipolar 1 disorder: Final Diagnosis Final Discharge Diagnosis: MDD Summary Hospital Course Hospital course: Ms. Arriaza is a 24 year old female who was admitted to the unit due to anxiety, depression and SI. She reports that she works at [employer] and this has been very stressful lately [...] self with a gun. She works at [employer] stating I need to get a way [...] Instructions: Important Contact Information You can call [facility] at [phone] any timeday or night if you have emergent questions or question regarding discharge instructions. If at anytime you are feeling an increase inyour psychiatric symptoms, call your physician or behavioral healthcare provider. If any time you have thoughts of harming yourself or others contact one of the following: Call (available 28/01) Crisis Text Line (available 28/01) text 4HOPE to [phone] [facility] Hope Line (available 8 a.m. Midnight) call [phone] ([phone]) Instructions: Know your Meds Stand Alone Forms: Work/School Release Form Prescriptions: New lamotrigine 25 mg Tablet 25 mg PO DAILY 15 Days Qty: 15 3RF ergocalciferol (vitamin D2) 1,250 mcg (50,000 unit) Capsule 1,250 mcg PO Gutiérrez@0900 30 Days Qty: 5 0RF aripiprazole 2 mg Tablet 2 mg PO QHS 15 Days Qty: 15 2RF Follow Up: [facility] [Outside] (In order to return for mental health follow-up, you will need to contact the office and sign up for a no-show class. Once this is complete, the office willbe able to get you re-established. ) [facility] [Outside] (facesheet sent- ok to schedule on discharge. ) Deidre Murillo APRN, VETERAN APPEALS REVIEWER-C [Primary Care Provider] - (Call for any medical needs) Exam Physical Exam Vital Signs: Temp Pulse Resp BP Pulse Ox O2 Del Method 98 F 68 16 124/83 98 Room Air 09/05/24 19:59 09/05/24 19:59 09/05/24 19:59 09/05/24 19:59 09/05/24 19:59 09/05/24 19:59 Documented By: Jair Rosenberg MD 5 0651 Signed By: 09/06/24 0653 [facility]03-01-2025 Progress note Author Jair nielsen [facility] Note Date/Time September 05, 2024 6:45 am [facility] [address] [place] [address] Psychiatry Progress Note Signed Patient: Mone Arriaza MR#: [id number] : 2000 Acct:[id number] Age/Sex: 24 / F Adm Date: 5 Loc: Room: [address] [place] [address] Type : ADM IN Attending Dr: Jair [...] understanding. Documented By: Jair Rosenberg MD 5 4925 Signed By: <Electronically signed by Jair Rosenberg MD> 09/05/24 0645 [facility] Work Phone: 1(671) 279-949703-01-2025 [place] [address] Psychiatry Progress Note Signed Patient: Mone Arriaza MR#: [id number] : 2000 Acct:[id number] Age/Sex: 24 / F Adm Date: 5 Loc: 1S Room: 1K1638-4 Type : ADM IN Attending Dr: Jair [...] MD 5 0642 Signed By: 09/05/24 0645 [facility]02-28-2025 History and physical note Author Jair nielsen [facility] Note Date/Time September 04, 2024 7:06am [facility] [address] [place] [address] Psychiatry H&P Signed Patient: Mone Arriaza MR#: [id number] : 2000 Acct:[id number] Age/Sex: 24 / F Adm Date: 5 Loc: 1S Room: [address] [place] [address] Type: ADM IN Attending Dr: Jair Rosenberg MD Copies to: MD Deidre Phillips APRN, CLOTH PRINTER HELPER~ Date of Service: 09/04/2024 HPI History of Present Illness History of present illness: Ms. Arriaza is a 24 year old female who was admitted to the unit due to anxiety, depression and SI. She reports that she works at [employer] and this has been very stressful lately [...] self with a gun. She works at [employer] stating I need to get a way [...] and friend and feels safe there Employment: [facility] Mental Status Exam: Appearance: grossly normal Mental [...] strong, equal bilaterally. CNXII: Tongue protrusion midline [facility] Medical History (Updated 09/03/24 @ 16:47 by Nandini Arroyo MD) Bipolar 1 disorder Zhen Surgical History Solomon teeth extracted Family History Mother Hypertension Family [...] Appearance Clear Urine pH 5.5 Ur Specific [place] 1.011 Urine Protein Negative Urine Glucose (UA) [...] signed by Jair Rosenberg MD> 09/04/24 0706 [facility] Work Phone: 1(440) 859-493602-28-2025 [place] [address] Psychiatry H&P Signed Patient: Mone Arriaza MR#: [id number] : 2000 Acct:[id number] Age/Sex: 24 / F Adm Date: 5 Loc: Room: [address] [place] [address] Type: ADM IN Attending Dr: Jair Rosenberg MD Copies to: MD Deidre Phillips APRN, CLOTH PRINTER HELPER~ Date of Service: 09/04/2024 HPI History of Present Illness History of present illness: Ms. Arriaza is a 24 year old female who was admitted to the unit due to anxiety, depression and SI. She reports that she works at [employer] and this has been very stressful lately [...] self with a gun. She works at [employer] stating I need to get a way [...] and friend and feels safe there Employment: [facility] Mental Status Exam: Appearance: grossly normal Mental [...] strong, equal bilaterally. CNXII: Tongue protrusion midline [facility] Medical History (Updated 09/03/24 @ 16:47 by Nandini Arroyo MD) Bipolar 1 disorder Zhen Surgical History Solomon teeth extracted Family History Mother Hypertension Family [...] Appearance Clear Urine pH 5.5 Ur Specific [place] 1.011 Urine Protein Negative Urine Glucose (UA) [...] MD 5 0600 Signed By: 09/04/24 0706 [facility]02-27-2025 Evaluation note* Diagnosis Onset Date Resolution Status Admit Date Bipolar 1 disorder acute Februa 2024 10:12am Depression acute September 03, 2024 10:12am Suicidal ideation acute 2024 10:12am [facility] Work Phone: 1(959) 952-165302-27-2025 Evaluation note* Diagnosis Onset Date Resolution Status Admit Date Bipolar 1 disorder acute Februa 2024 10:12am Depression acute September 03, 2024 10:12am Suicidal ideation resolved r 2024 10:12am Sore throat noneactive September 23, 2 025 2:21pm [facility] Work Phone: 1(967) 552-962302-27-2025 Evaluation note* Diagnosis Onset Date Resolution Status Admit Date Bipolar 1 disorder acute Februa 2024 10:12am Depression acute September 03, 2024 10:12am Suicidal ideation resolved r 2024 10:12am Acute pharyngitis acute September 052024 2:21pm [facility] Work Phone: 1(276) 534-196301-16-2025 History of Present illness Narrative* Neema Ortiz, RUBBER STAMP ASSEMBLER-CLOTH PRINTER HELPER - 07/23/2024 9:30 AM EST 24 y.o. Annual Exam Mone Arriaza is a 24 y.o. female new patient who presents for annual MEDIA INTERN exam. The patient c/o cramping, sometimes severe after Mirena was placed. Mirena placed 11/2022. Pt reports history of ovarian cysts as well. Declined STI screening. Menses are irregular with IUD, lasting 3 days. Current contraception: Mirena IUD placed (Dr. 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 DEIDRE MURILLO, RUBBER STAMP ASSEMBLER-CLOTH PRINTER HELPER PHQ-9 = 10. Follows with psychiatric nurse practitioner at [facility] in [place]. Onmental health medications (Abilify, buspar, lamotrigine, sertraline). [...] Can go to local pharmacy for vaccine ([facility], [facility], etc). DIANNA Hadley 07/23/24 1124 [facility] NoteEntered by Rosalia Soler on March 13, 2024 08:22:36 EDT From: Rosalia Soler To: [facility] Sent: 03/13/2024 08:22:36 EDT Subject: Medication Management Not Approved: Patient needs appointment hydroCHLOROthiazide (hydroCHLOROthiazide 25 MG Oral Tablet) Take 1 tablet by mouth once daily Qty: 30 tab(s) Days Supply: 30 Refills: 0 Substitutions Allowed Route To Pharmacy - [facility] Signed by Rosalia Soler From: [facility] To: Deidre Smart CNP Sent: March 13, 2024 12:48:26 AM CDT Subject: Medication Management Due: March 14, 2024 12:08:35 AM CDT On Hold Pending Signature Dispensed Drug: hydroCHLOROthiazide (hydroCHLOROthiazide 25 mg oral tablet), Take 1 tablet by mouthonce daily Quantity: 30 tab(s) Days Supply: 30 Refills: 0 Substitutions Allowed [id number] Evaluation note* Author [facility] Authored March 02, 2024 9: 56am 23-year-old female referred to the GI clinic for evaluation of hematochezia. +chronic diarrhea for almost 1 year. An episode of lower abdominal pain 2 months ago where a CT was done and showed colitis as per patient. Colonoscopy was done at [facility] and it was unremarkable as per patient. [...] second look colonoscopy after getting this workup [facility] Work Phone: 1(798) 242-282306-26-2024 Evaluation note* Author [facility] Authored March 02, 2024 9: 56am 23-year-old female referred to the GI clinic for evaluation of hematochezia. +chronic diarrhea for almost 1 year. An episode of lower abdominal pain 2 months ago where a CT was done and showed colitis as per patient. Colonoscopy was done at [facility] and it was unremarkable as per patient. [...] second look colonoscopy after getting this workup [facility] Work Phone: 1(389) 471-493108-17-2023 Evaluation note* Encounter Date Diagnosis Assessment Notes Treatment Notes Treatment Clinical Notes Feb, Severe obesity (BMI >= 40) (ICD-10 - E66.01) Consultation date 02-21-2023, weight (pounds): 332.5Plan is [...] voice recognition software. Please excuse errors in agriculture scientist. Feb, Dietary surveillance and counseling (ICD-10 - [...] R06.83) High risk for OSARecommend sleep study [facility] [employer] Other Evaluation noteNo InformationNort [employer] Other Evaluation noteNo assessment information available [facility] Work Phone: Evaluocjhy note* Diagnosis Women's annual routine gynecological examination- Primary Cervical smear, as part of routine gynecological examination Screening for malignant neoplasm of the cervix Standardized adult depression screening tool completed IUD check up History of ovarian cyst Personal history of other genital system and obstetric disorders History of abnormal cervical Pap smear documented in this encounter [facility] System[facility] general Narrative - Reported* Type Description Date Medical History PCOS Medical History Hypertension Medical History Eczema Medical History Depression Medical History Anxiety Surgical History Solomon teeth extraction 2014 Hospitalization History See above [employer] Other InstructionsNot on filedocumented in this encounter [employer] Summary Purpose Family History No Family [...] section and content) DATE CREATED AUTHOR 12/30/2017 [facility] DATE CREATED AUTHOR AUTHOR'S ORGANIZ ATION 07/26/2024 [facility] DATE CREATED AUTHOR AUTHOR'S ORGANIZ ATION 08/06/2024 [facility] DATE CREATED AUTHOR AUTHOR'S ORGANIZ ATION 09/27/2024 [facility] DATE CREATED AUTHOR AUTHOR'S ORGANIZ ATION 01/30/2025 [facility] REASON FOR VISIT (unrecogniz ed section and content) Reason Comments Gynecologic Exam Pt is here for rc hernandez exam. Care Teams (unrecognized sec tion and content) Team Status: Active Member Role Status Dates Deidre Murillo APRN VETERAN APPEALS REVIEWER-C Primary Care Provider Active Team Status: Inactive Member Role Status Dates Deidre Murillo APRN VETERAN APPEALS REVIEWER-C Primary Care Provider Active Start: September 03, 2024 End: September 06, 2024 Nandini Arroyo MD Emergency Provider Active Start: September 03, 2024 End: September 06, 2024 Jair Rosenberg MD Admit Provide r, Attending Provider Active Start: September 03, 2024 End: September 06, 2024 Team Status: Active Member Role Status Dates Deidre Murillo APRN VETERAN APPEALS REVIEWER-C Primary Care Provider Active Start: September 04, 2024 Nandini Arroyo MD Emergency Provider Active Start: September 04, 2024 Jair Rosenberg MD Admit Provide r, Attending Provider, Other Provider Active Start: September 04, 2024 Team Status: Active Member Role Status Dates Deidre Murillo APRN [employer] Primary Care Provider Active Start: September 03, 2024 Nandini Arroyo MD Emergency Provider Active Start: September 03, 2024 Jair Rosenberg MD Admit Provide r, Attending Provider Active Start: September 03, 2024 Team Status: Inactive Member Role Status Dates Deidre Murillo APRN [employer] Primary Care Provider Active Start: August 08, 2023 End: August 08, 2023 Kobe Alcantara MD Attending Provider Active Start: August 08, 2023 End: August 08, 2023 Team Status: Inactive Member Role Status Dates Deidre Murillo APRN [employer] Primary Care Provider Active Start: March 02, 2024 End: March 02, 2024 Noris May MD Attending Provider Active Start: March 02, 2024 End: March 02, 2024 Team Status: Inactive Member Role Status Dates Deidre Murillo APRN [employer]C Primary Care Provider Active Start: March 18, 2024 End: March 18, 2024 Noris May MD Attending Provider Active Start: March 18, 2024 End: March 18, 2024 [employer] Finisher Relationship Specialty Start Date End Date Deidre Murillo APRN-[facility] PCP - General Family Medicine 12/26/18 Team Status: Inactive Member Role Status Dates Deidre Murillo APRN [employer] Primary Care Provider Active Start: September 23, [...] BE BASED ON THE PRIMARY CLINICAL RECORDS. [facility] [employer] [facility]. provides no warranty or guarantee of the accuracy or completeness of information in this document.
[2025-02-19 02:07] VITALS: BP 170/91; PULSE 95; TEMP 36.7; O2SAT 99; BMI 44.9
--- NOTE | 2025-02-19 02:16 | ED.FEMALEGU1 ---
HPI - Female Genitourinary General Chief complaint: Urogenital-Female Stated complaint: POSS UTI Time Seen by Provider: 02/19/25 02:02 Source: patient Mode of arrival: walk-in Limitations: no limitations History of Present Illness HPI Narrative: This 24-year-old presents for evaluation of urinary symptoms. The patient states for the last 10 days she has had some burning with urination and some lower abdominal cramping. She has not had any fevers or chills but states she has been sweating a lot at night. She has no flank pain. She has an IUD so she doubts the possibility of but is sexually active. She has concerns for STDs as well stating that she has some vaginal discharge. She denies that there is any foul smell or color to it. She denies any chest pain or shortness of breath. She has not had any blood in her urine. She denies any specific urgency but states she has been urinating a lot and it does burn when she urinates. Related Data Home Medications ?Medication ?Instructions ?Recorded ?Confirmed aripiprazole 10 mg tablet mg 01/23/25 buspirone 10 mg tablet mg 01/23/25 hydroxyzine pamoate 25 mg capsule mg 01/23/25 lamotrigine 100 mg tablet mg 01/23/25 Allergies Allergy/AdvReac Type Severity Reaction Status Date / Time No Known Drug Allergies Allergy Verified 02/19/25 02:07 Review of Systems ROS Status of ROS 10 or more systems reviewed and unremarkable except as noted in history and below PFSH PFSH Social History Smoking status: Never smoker Little interest or pleasure in doing things: not at all Feeling down, depressed, or hopeless: not at all Exam Narrative Exam Narrative: Vital signs and Nursing Notes reviewed: Patient is afebrile with normal pulse, blood pressure is elevated at 170/90, she is not hypoxic with pulse ox of 99% on room air General: Awake, alert, oriented, no acute distress, lying comfortably on the stretcher HEENT: Normocephalic atraumatic, mucous membranes are moist and pink, eyes are clear, normal conjunctiva, vision is grossly intact Chest: Lungs are clear to auscultation with good air entry, there is no wheezing rhonchi or rales appreciated no accessory muscle use, patient is speaking in complete sentences CVS: Regular rate and rhythm S1-S2, no murmurs rubs or gallops, pulses are brisk and equal bilaterally ABD: Obese, soft, nondistended, nontender, no rebound guarding or rigidity, bowel sounds are normal, no tenderness over the bladder. No CVA tenderness Extremities: Moving all extremities, no lower extremity tenderness or swelling noted, negative Homans' sign, pulses are brisk and equal bilaterally Skin: Normal in appearance without rash,pallor, petechiae or purpura Neuro: No focal deficits Constitutional Vital Signs, click to edit/add: Last Vital Signs Temp 98.1 F 02/19/25 02:07 Pulse 95 H 02/19/25 02:07 Resp 18 02/19/25 02:07 BP 170/91 H 02/19/25 02:07 Pulse Ox 99 02/19/25 02:07 O2 Del Method Room Air 02/19/25 02:07 Course Vital Signs Vital signs: Vital Signs Temperature 98.1 F 02/19/25 02:07 Pulse Rate 95 H 02/19/25 02:07 Respiratory Rate 18 02/19/25 02:07 Blood Pressure 170/91 H 02/19/25 02:07 Pulse Oximetry 99 02/19/25 02:07 Oxygen Delivery Method Room Air 02/19/25 02:07 Temperature 98.1 F 02/19/25 02:07 Pulse Rate 95 H 02/19/25 02:07 Respiratory Rate 18 02/19/25 02:07 Blood Pressure 170/91 H 02/19/25 02:07 Pulse Oximetry 99 02/19/25 02:07 Oxygen Delivery Method Room Air 02/19/25 02:07 MDM - Female Genitourinary MDM Narrative Medical decision making narrative: This 24-year-old female presents for evaluation of urinary symptoms for the past 10 days. She states she is having lower abdominal cramping and dysuria. She has not had any fever but states she has been sweating a lot at night. She has not had any shaking chills or flank pain. She has an IUD. She states she has a possibility of being despite the IUD and also has possibility of having an STD. She does have vaginal discharge but denies that it is foul-smelling or colored. She has mostly been having dysuria and urinary frequency. Her vital signs are normal. Physical exam is benign. She is not tender over her lower abdomen and does not have any flank tenderness. Urine was sent to the lab. Is positive for red blood cells as well as bacteria. test is negative. STD testing for gonorrhea and chlamydia is pending at this time. Due to her dysuria and ongoing symptoms she was medicated with a dose of Cipro. I explained to her that if her urine test positive for gonorrhea or chlamydia she will be called in a prescription for medications to treat that will be provided for her or she will be encouraged to return to the emergency department for further treatment. She is in agreement with this plan. Lab Data Labs: Lab Results 02/19/25 Range/Units 02:00 Urine Color Yellow (YELLOW) Urine Clarity Clear (CLEAR) Urine pH 5.5 (5.0-9.0) Ur Specific [place] >=1.030 A (1.005-1.025) Urine Protein 30 A (NEG/TRACE) mg/dL Urine Glucose (UA) Negative (NEGATIVE) mg/dL Urine Ketones Negative (NEGATIVE) mg/dL Urine Occult Blood Large A (NEGATIVE) Urine Nitrite Negative (NEGATIVE) Urine Bilirubin Small A (NEGATIVE) Urine Urobilinogen 0.2 (0.2-1.0) EU/dL Ur Leukocyte Esterase Negative (NEGATIVE) Urine RBC 2-5 A (0-2) #/HPF Urine WBC 2-5 A (NONE SEEN) #/HPF Ur Squamous Epith Cells Moderate A (NONE/RARE) #/LPF Urine Crystals Seen A (None Seen) #/HPF Calcium Oxalate Crystal Few Urine Bacteria Moderate A (NONE SEEN) #/HPF Urine Casts None seen (NONE SEEN) #/LPF Urine Mucus Small A (NONE SEEN) Ur Culture Indicated? Yes-[facility] [place] Urine HCG, Qual Negative (NEGATIVE) Discharge Plan Discharge Chief Complaint: Urogenital-Female Clinical Impression: Urinary tract infection Patient Disposition: Home, Self-Care Time of Disposition Decision: 02:48 Condition: Good Prescriptions / Home Meds: No Action buspirone 10 mg tablet lamotrigine 100 mg tablet hydroxyzine pamoate 25 mg capsule aripiprazole 10 mg tablet Print Language: Scottish Instructions: Urinary Tract Infection in Women (DC) Referrals: ANNA JIMENEZ [Primary Care Provider, Unknown] - 1 week Discharge Date/Time: 02/19/25 02:56
[2025-02-19 02:21] LABS: Glucose Urine UA NEGATIVE (NEGATIVE)
[2025-02-19 02:24] LABS: Cast Seen? NONE SEEN #/LPF (NONE SEEN); Crystals Seen? Seen #/HPF (None Seen); Urine Culture Indicated YES-FRMC
[2025-02-19 02:25] LABS: HCG Qualitative Urine* NEGATIVE (NEGATIVE)
[2025-02-19] MEDS: CIPROFLOXACIN HCL 500 MG TABLET PO (02:53)
--- NOTE | 2025-02-19 02:57 | PC.NURSE ---
i gave this patient verbal and written discharge orders along with 1Rx and this patient voices yes to understanding these. at time of discharge this patient voices no concerns, or needs and this patient shows no signs of distress
[2025-02-22 20:08] LABS: Neisseria gonorrhoeae, NAA Negative (Negative)
== END 2025-02-19 02:56 | disposition home or self-care (01) ==
PROVIDERS: Emergency Provider Emergency Medicine
DX: N39.0 Urinary tract infection, site not specified (principal); R30.0 Dysuria; R10.2 Pelvic and perineal pain
CPT/HCPCS: 81001; 84703; 87086; 87491; 87591; 99283